=== PATIENT | female | born 1975 | race African-American/Black ===

== ENCOUNTER 2016-08-21 02:35 | Outpatient (CLI) | payer MEDICAID, OTHER ==
[2016-08-21 02:55] VITALS: BP 131/76
[2016-08-21] MEDS ORDERED: LACTATED RINGERS 1,000 ML IV SCH (04:00)
[2016-08-21 04:49] LABS: Bilirubin,Urine NEG (Negative); Blood,Urine NEG (Negative); Ketones,Urine TR mg/dL (Negative); Leukocyte Esterase,Urine NEG (Negative); Mucus,Urine FEW /HPF; Nitrite,Urine NEG (Negative); Protein,Urine <15 mg/dL mg/dL (Negative); Urobilinogen,Urine < 2.0 mg/dL (<2.0)
--- NOTE | 2016-08-21 10:59 | Ultrasound Report ---
ULTRASOUND OB LIMITED History: Vaginal bleeding Technique: Transabdominal ultrasound with Doppler interrogation. Gestation: Single Placenta: Anterior Placental Grade: 2 No evidence for placental abruption or previa. Heart Rate: 141 BPM
--- NOTE | 2016-08-21 11:00 | Ultrasound Report ---
ULTRASOUND BIOPHYSICAL PROFILE: History: Vaginal bleeding Technique: Transabdominal ultrasound with Doppler interrogation. 2 - breathing movements 2 - movements 2 - posture and tone 2 - Qualitative amniotic fluid volume 8 - TOTAL SCORE OF POSSIBLE 8 Heart Rate (bpm) 135
== END 2016-08-21 05:50 | disposition home or self-care (01) ==
LOC: TRG 02:35
PROVIDERS: ATTEND Obstetrics & Gynecology
DX: O09.523 Supervision of elderly multigravida, third trimester (principal); O47.1 False labor at or after 37 completed weeks of gestation; Z3A.37 37 weeks gestation of pregnancy
CPT/HCPCS: 76815; 76819; 81001; 82962; 96360; J7120

== ENCOUNTER 2016-08-22 17:37 | Outpatient (CLI) | payer MEDICAID ==
[2016-08-22 19:14] VITALS: BP 118/69
--- NOTE | 2016-08-23 10:01 | Ultrasound Report ---
ULTRASOUND OB LIMITED History: well being, rupture of membranes, no movements Technique: Transabdominal ultrasound with Doppler interrogation. Gestation: Single Position: Cephalic Amniotic Fluid: Normal MARY = 9.5 cm Placenta: Anterior, right lateral Placental Grade: 1 Heart Rate: 145 BPM Cervical length: Not measured cm (Normal > 3 cm)
--- NOTE | 2016-08-23 10:01 | Ultrasound Report ---
ULTRASOUND BIOPHYSICAL PROFILE: History: well being, rupture of membranes, no movement Technique: Transabdominal ultrasound with Doppler interrogation. 2 - breathing movements 2 - movements 2 - posture and tone 2 - Qualitative amniotic fluid volume 8 - TOTAL SCORE OF POSSIBLE 8 Heart Rate (bpm) 145
== END 2016-08-22 19:22 | disposition home or self-care (01) ==
LOC: TRG 17:37
PROVIDERS: ATTEND Obstetrics & Gynecology
DX: O09.513 Supervision of elderly primigravida, third trimester (principal); O47.1 False labor at or after 37 completed weeks of gestation; Z3A.38 38 weeks gestation of pregnancy
CPT/HCPCS: 59025; 76815; 76819

== ENCOUNTER 2016-08-24 22:14 | Inpatient (IN) | payer MEDICAID ==
[2016-08-24] MEDS ORDERED: LACTATED RINGERS 1,000 ML ONE (22:33)
--- NOTE | 2016-08-24 23:02 | History and Physical Report ---
History of Present Illness Date of examination: 08/24/16 Chief complaint: Vaginal bleeding History of present illness: Pt is a 40yo AF EDC 09/05/16; EGA 38 3/7 weeks presents to L&D complaining of vaginal bleeding, and found to be 3/50/V/-3 She received care at [facility] since 7 weeks and course complicated by IDDM and AMA for which she has been followed by [facility]. records are avail able and GBS is positive. Past History Past Medical History: diabetes (IDDM on ) Past Surgical History: other (Liver biopsy; skin graft to right leg) Family/Genetic History: diabetes, hypertension Social history: no significant social history, - Obstetrical History Expected Date of Delivery: 09/05/16 Actual Gestation: 38 Week(s) 3 Day(s) : 1 Medications and Allergies Allergies Allergy/AdvReac Type Severity Reaction Status Date / Time No Known Allergies Allergy Unverified 01/21/16 09:19 Review of Systems All systems: negative - Vital Signs Vital signs: Vital Signs Pulse BP 109 H 135/94 08/24/16 22:39 08/24/16 22:39 Temp Pulse Resp BP Pulse Ox 109 H 135/94 08/24/16 22:39 08/24/16 22:39 - Physical Exam Breasts: Positive: deferred Cardiovascular: Regular rate Lungs: Positive: Clear to auscultation Abdomen: Positive: normal appearance, soft Genitourinary (Female): Positive: normal external genitalia Vagina: Positive: other (blood) Uterus: Positive: enlarged Extremities: Positive: normal - Obstetrical FHR: category 2 Uterine Contraction Monitor Mode: External Cervical Dilatation: 3 Cervical Effacement Percentage: 50 station: -3 Uterine Contraction Pattern: Irregular Uterine Tone Measurement Phase: Contraction Uterine Contraction Intensity: Strong/Firm Results Result Diagrams: 08/25/16 05:12 All other labs normal. Assessment and Plan - Patient Problems (1) 38 weeks gestation of Onset Date: 08/25/16 Current Visit: Yes Status: Acute Plan to address problem: A: IUP @ 38 3/7 weeks IDDM AMA Thrombocytopenia - HELLP syndrome not suspected at this time P: Admit to L&D for expectant vaginal delivery Monitor BS's and platelet count. Will repeat AST/ALT
[2016-08-24] MEDS ORDERED: BRETHINE SUB-Q PRN (23:04)
[2016-08-24] MEDS ORDERED: MINERAL OIL PO PRN (23:04)
[2016-08-24] MEDS ORDERED: ePHEDrine SULFATE IV PRN (23:04)
[2016-08-24] MEDS ORDERED: POLYCILLIN/NS 2 GM/100 ML 2 GM/100 ML BAG IV ONE (23:04)
[2016-08-24] MEDS ORDERED: BRETHINE IVP PRN (23:04)
[2016-08-24] MEDS ORDERED: NARCAN 0.4 MG/1 ML IV PRN (23:04)
[2016-08-24] MEDS ORDERED: SUBLIMAZE IV PRN (23:04)
[2016-08-24] MEDS ORDERED: XYLOCAINE 2% INFILTRATI ONE (23:04)
[2016-08-24] MEDS ORDERED: PHENERGAN PO PRN (23:04)
[2016-08-24] MEDS ORDERED: STADOL IV PRN (23:04)
[2016-08-24] MEDS ORDERED: ZOFRAN IV PRN (23:04)
[2016-08-24 23:34] LABS: Hematocrit 36.5 % (30.3-42.9); Hemoglobin 12.6 gm/dl (10.1-14.3); Mean Corpuscular HGB Conc 35 % (30-34); Mean Corpuscular Hemoglobin 35 pg (28-32); Mean Corpuscular Volume 102 fl (79-97); Red Blood Count 3.57 M/mm3 (3.65-5.03); Red Cell Distribution Width 13.5 % (13.2-15.2); White Blood Count 10.9 K/mm3 (4.5-11.0)
[2016-08-24 23:44] LABS: Platelet Count 70 K/mm3 (140-440)
[2016-08-24] MEDS ORDERED: PITOCin/NS 30 UNIT/500ML 30 UNITS/500 ML BAG IV SCH ×2 (23:45)
[2016-08-24] MEDS ORDERED: PITOCin/NS 20 UNIT/1000ML DRIP 20 UNITS/1,000 ML BAG IV SCH (23:45)
[2016-08-25] MEDS ORDERED: D10W 1,000 ML IV SCH (01:00)
[2016-08-25] MEDS: LACTATED RINGERS 1,000 ML IV SCH ×2 (01:02→10:21)
[2016-08-25 02:24] LABS: Uric Acid 5.9 mg/dL (3.5-7.6)
[2016-08-25] MEDS: POLYCILLIN/NS 1 GM/50 ML 1 GM/50 ML BAG IV SCH ×2 (04:40→09:07)
[2016-08-25 05:44] LABS: Hematocrit 37.2 % (30.3-42.9); Hemoglobin 12.6 gm/dl (10.1-14.3); Mean Corpuscular HGB Conc 34 % (30-34); Mean Corpuscular Hemoglobin 35 pg (28-32); Mean Corpuscular Volume 103 fl (79-97); Red Blood Count 3.63 M/mm3 (3.65-5.03); Red Cell Distribution Width 13.6 % (13.2-15.2); White Blood Count 12.6 K/mm3 (4.5-11.0)
[2016-08-25 06:20] LABS: Platelet Count 62 K/mm3 (140-440)
[2016-08-25 06:57] LABS: Bilirubin,Urine NEG (Negative); Blood,Urine NEG (Negative); Ketones,Urine NEG (Negative); Leukocyte Esterase,Urine NEG (Negative); Mucus,Urine FEW /HPF; Nitrite,Urine NEG (Negative); Protein,Urine <15 mg/dL mg/dL (Negative); Urobilinogen,Urine < 2.0 mg/dL (<2.0); WBC,Urine < 1.0 /HPF (0.0-6.0)
--- NOTE | 2016-08-25 07:21 | Progress Note ---
Assessment and Plan - Patient Problems (1) 38 weeks gestation of Onset Date: 08/25/16 Current Visit: Yes Status: Acute Plan to address problem: A: IUP @ 38 4/7 weeks IDDM AMA Thrombocytopenia P: Expectant vaginal delivery Subjective - Subjective Date of service: 08/25/16 Principal diagnosis: IUP @ Interval history: Pt having irregular contractions, but now C/C/V/0. AROM 2+ meconium fluid. Patient reports: loss of fluid, movement normal, contractions, no new complaints, no vaginal bleeding Objective - Vital Signs Vital Signs: Vital Signs - 12hr 08/24/16 08/24/16 08/24/16 22:39 23:07 23:09 Temperature 99.0 F Pulse Rate 109 H 107 H 107 H Pulse Rate [ From Monitor] Respiratory 18 Rate Blood Pressure 135/94 144/72 Blood Pressure [Right Arm] O2 Sat by Pulse 98 Oximetry 08/24/16 08/24/16 08/24/16 23:10 23:14 23:19 Temperature 97.4 F L Pulse Rate 107 H 108 H Pulse Rate [ 108 H From Monitor] Respiratory 18 Rate Blood Pressure Blood Pressure 144/72 [Right Arm] O2 Sat by Pulse 97 97 97 Oximetry 08/24/16 08/24/16 08/24/16 23:24 23:29 23:34 Temperature Pulse Rate 101 H 108 H 108 H Pulse Rate [ From Monitor] Respiratory Rate Blood Pressure Blood Pressure [Right Arm] O2 Sat by Pulse 98 99 99 Oximetry 08/24/16 08/24/16 08/24/16 23:38 23:39 23:44 Temperature Pulse Rate 103 H 103 H 102 H Pulse Rate [ From Monitor] Respiratory Rate Blood Pressure 134/71 Blood Pressure [Right Arm] O2 Sat by Pulse 98 98 Oximetry 08/24/16 08/24/16 08/24/16 23:49 23:54 23:59 Temperature Pulse Rate 111 H 105 H 107 H Pulse Rate [ From Monitor] Respiratory Rate Blood Pressure Blood Pressure [Right Arm] O2 Sat by Pulse 98 99 99 Oximetry 08/25/16 08/25/16 08/25/16 00:04 00:07 00:09 Temperature Pulse Rate 108 H 102 H 103 H Pulse Rate [ From Monitor] Respiratory Rate Blood Pressure 132/65 Blood Pressure [Right Arm] O2 Sat by Pulse 99 98 Oximetry 08/25/16 08/25/16 08/25/16 00:14 00:16 00:19 Temperature Pulse Rate 93 H 96 H Pulse Rate [ From Monitor] Respiratory 20 Rate Blood Pressure Blood Pressure [Right Arm] O2 Sat by Pulse 98 98 Oximetry 08/25/16 08/25/16 08/25/16 00:24 00:29 00:34 Temperature Pulse Rate 93 H 101 H 107 H Pulse Rate [ From Monitor] Respiratory Rate Blood Pressure Blood Pressure [Right Arm] O2 Sat by Pulse 98 98 96 Oximetry 08/25/16 08/25/16 08/25/16 00:38 00:39 00:44 Temperature Pulse Rate 94 H 93 H 95 H Pulse Rate [ From Monitor] Respiratory Rate Blood Pressure 136/68 Blood Pressure [Right Arm] O2 Sat by Pulse 99 99 Oximetry 08/25/16 08/25/16 08/25/16 00:49 00:54 00:59 Temperature Pulse Rate 103 H 94 H 94 H Pulse Rate [ From Monitor] Respiratory Rate Blood Pressure Blood Pressure [Right Arm] O2 Sat by Pulse 96 97 96 Oximetry 08/25/16 08/25/16 08/25/16 01:04 01:08 01:09 Temperature Pulse Rate 92 H 100 H 96 H Pulse Rate [ From Monitor] Respiratory Rate Blood Pressure 166/84 Blood Pressure [Right Arm] O2 Sat by Pulse 94 95 Oximetry 08/25/16 08/25/16 08/25/16 01:11 01:14 01:19 Temperature Pulse Rate 98 H 105 H 108 H Pulse Rate [ From Monitor] Respiratory Rate Blood Pressure Blood Pressure [Right Arm] O2 Sat by Pulse 94 95 94 Oximetry 08/25/16 08/25/16 08/25/16 01:24 01:29 01:34 Temperature Pulse Rate 103 H 109 H 101 H Pulse Rate [ From Monitor] Respiratory Rate Blood Pressure Blood Pressure [Right Arm] O2 Sat by Pulse 95 99 98 Oximetry 08/25/16 08/25/16 08/25/16 01:37 01:39 01:44 Temperature Pulse Rate 100 H 104 H 100 H Pulse Rate [ From Monitor] Respiratory Rate Blood Pressure 141/71 Blood Pressure [Right Arm] O2 Sat by Pulse 98 98 Oximetry 08/25/16 08/25/16 08/25/16 01:49 01:54 01:59 Temperature Pulse Rate 99 H 105 H 109 H Pulse Rate [ From Monitor] Respiratory Rate Blood Pressure Blood Pressure [Right Arm] O2 Sat by Pulse 98 98 98 Oximetry 08/25/16 08/25/16 08/25/16 02:04 02:07 02:09 Temperature Pulse Rate 99 H 97 H 109 H Pulse Rate [ From Monitor] Respiratory Rate Blood Pressure 133/70 Blood Pressure [Right Arm] O2 Sat by Pulse 98 99 Oximetry 08/25/16 08/25/16 08/25/16 02:14 02:19 02:24 Temperature Pulse Rate 105 H 104 H 99 H Pulse Rate [ From Monitor] Respiratory Rate Blood Pressure Blood Pressure [Right Arm] O2 Sat by Pulse 99 99 98 Oximetry 08/25/16 08/25/16 08/25/16 02:29 02:30 02:34 Temperature Pulse Rate 99 H 99 H Pulse Rate [ From Monitor] Respiratory 20 Rate Blood Pressure Blood Pressure [Right Arm] O2 Sat by Pulse 97 98 Oximetry 08/25/16 08/25/16 08/25/16 02:37 02:39 02:44 Temperature Pulse Rate 96 H 95 H 98 H Pulse Rate [ From Monitor] Respiratory Rate Blood Pressure 153/78 Blood Pressure [Right Arm] O2 Sat by Pulse 98 98 Oximetry 08/25/16 08/25/16 08/25/16 02:49 02:54 02:59 Temperature Pulse Rate 93 H 94 H 92 H Pulse Rate [ From Monitor] Respiratory Rate Blood Pressure Blood Pressure [Right Arm] O2 Sat by Pulse 98 97 98 Oximetry 08/25/16 08/25/16 08/25/16 03:04 03:08 03:09 Temperature Pulse Rate 93 H 100 H 93 H Pulse Rate [ From Monitor] Respiratory Rate Blood Pressure 141/70 Blood Pressure [Right Arm] O2 Sat by Pulse 97 97 Oximetry 08/25/16 08/25/16 08/25/16 03:14 03:19 03:24 Temperature Pulse Rate 100 H 99 H 94 H Pulse Rate [ From Monitor] Respiratory Rate Blood Pressure Blood Pressure [Right Arm] O2 Sat by Pulse 98 98 98 Oximetry 08/25/16 08/25/16 08/25/16 03:29 03:34 03:38 Temperature Pulse Rate 89 90 93 H Pulse Rate [ From Monitor] Respiratory Rate Blood Pressure 143/77 Blood Pressure [Right Arm] O2 Sat by Pulse 98 97 Oximetry 08/25/16 08/25/16 08/25/16 03:39 03:44 03:49 Temperature Pulse Rate 89 105 H 99 H Pulse Rate [ From Monitor] Respiratory Rate Blood Pressure Blood Pressure [Right Arm] O2 Sat by Pulse 98 99 98 Oximetry 08/25/16 08/25/16 08/25/16 03:54 03:59 04:04 Temperature Pulse Rate 106 H 101 H 101 H Pulse Rate [ From Monitor] Respiratory Rate Blood Pressure Blood Pressure [Right Arm] O2 Sat by Pulse 99 99 99 Oximetry 08/25/16 08/25/16 08/25/16 04:07 04:09 04:14 Temperature Pulse Rate 91 H 104 H 97 H Pulse Rate [ From Monitor] Respiratory Rate Blood Pressure 137/70 Blood Pressure [Right Arm] O2 Sat by Pulse 99 98 Oximetry 08/25/16 08/25/16 08/25/16 04:19 04:24 04:29 Temperature Pulse Rate 99 H 100 H 97 H Pulse Rate [ From Monitor] Respiratory Rate Blood Pressure Blood Pressure [Right Arm] O2 Sat by Pulse 99 98 99 Oximetry 08/25/16 08/25/16 08/25/16 04:34 04:38 04:39 Temperature Pulse Rate 94 H 99 H 97 H Pulse Rate [ From Monitor] Respiratory Rate Blood Pressure 140/98 Blood Pressure [Right Arm] O2 Sat by Pulse 98 100 Oximetry 08/25/16 08/25/16 08/25/16 04:44 04:49 04:54 Temperature Pulse Rate 91 H 95 H 96 H Pulse Rate [ From Monitor] Respiratory Rate Blood Pressure Blood Pressure [Right Arm] O2 Sat by Pulse 98 98 99 Oximetry 08/25/16 08/25/16 08/25/16 04:59 05:04 05:05 Temperature Pulse Rate 88 95 H 96 H Pulse Rate [ From Monitor] Respiratory Rate Blood Pressure Blood Pressure [Right Arm] O2 Sat by Pulse 98 98 94 Oximetry 08/25/16 08/25/16 08/25/16 05:09 05:14 05:19 Temperature Pulse Rate 95 H 104 H 102 H Pulse Rate [ From Monitor] Respiratory Rate Blood Pressure 132/65 Blood Pressure [Right Arm] O2 Sat by Pulse 94 94 95 Oximetry 08/25/16 08/25/16 08/25/16 05:20 05:24 05:25 Temperature Pulse Rate 97 H 101 H 103 H Pulse Rate [ From Monitor] Respiratory Rate Blood Pressure Blood Pressure [Right Arm] O2 Sat by Pulse 94 95 94 Oximetry 08/25/16 08/25/16 08/25/16 05:29 05:32 05:34 Temperature Pulse Rate 101 H 94 H 96 H Pulse Rate [ From Monitor] Respiratory Rate Blood Pressure Blood Pressure [Right Arm] O2 Sat by Pulse 96 94 94 Oximetry 08/25/16 08/25/16 08/25/16 05:37 05:39 05:40 Temperature Pulse Rate 96 H 97 H 98 H Pulse Rate [ From Monitor] Respiratory Rate Blood Pressure 141/65 Blood Pressure [Right Arm] O2 Sat by Pulse 95 94 Oximetry 08/25/16 08/25/16 08/25/16 05:44 05:49 05:54 Temperature Pulse Rate 95 H 108 H 102 H Pulse Rate [ From Monitor] Respiratory Rate Blood Pressure Blood Pressure [Right Arm] O2 Sat by Pulse 96 94 94 Oximetry 08/25/16 08/25/16 08/25/16 05:59 06:04 06:06 Temperature Pulse Rate 109 H 106 H 99 H Pulse Rate [ From Monitor] Respiratory Rate Blood Pressure Blood Pressure [Right Arm] O2 Sat by Pulse 95 96 94 Oximetry 08/25/16 08/25/16 08/25/16 06:07 06:09 06:12 Temperature Pulse Rate 100 H 102 H 104 H Pulse Rate [ From Monitor] Respiratory Rate Blood Pressure 127/60 Blood Pressure [Right Arm] O2 Sat by Pulse 95 94 Oximetry 08/25/16 08/25/16 08/25/16 06:14 06:19 06:24 Temperature Pulse Rate 99 H 114 H 98 H Pulse Rate [ From Monitor] Respiratory Rate Blood Pressure Blood Pressure [Right Arm] O2 Sat by Pulse 98 97 97 Oximetry 08/25/16 08/25/16 08/25/16 06:29 06:33 06:34 Temperature Pulse Rate 105 H 114 H 107 H Pulse Rate [ From Monitor] Respiratory Rate Blood Pressure Blood Pressure [Right Arm] O2 Sat by Pulse 96 94 95 Oximetry 08/25/16 08/25/16 08/25/16 06:37 06:39 06:44 Temperature Pulse Rate 104 H 100 H 104 H Pulse Rate [ From Monitor] Respiratory Rate Blood Pressure 144/65 Blood Pressure [Right Arm] O2 Sat by Pulse 93 99 Oximetry 08/25/16 08/25/16 08/25/16 06:49 06:51 06:54 Temperature Pulse Rate 100 H 118 H 112 H Pulse Rate [ From Monitor] Respiratory Rate Blood Pressure Blood Pressure [Right Arm] O2 Sat by Pulse 95 94 97 Oximetry 08/25/16 08/25/16 08/25/16 06:59 07:04 07:08 Temperature Pulse Rate 115 H 100 H 109 H Pulse Rate [ From Monitor] Respiratory Rate Blood Pressure 169/79 Blood Pressure [Right Arm] O2 Sat by Pulse 97 97 Oximetry 08/25/16 08/25/16 07:09 07:14 Temperature Pulse Rate 110 H 107 H Pulse Rate [ From Monitor] Respiratory Rate Blood Pressure Blood Pressure [Right Arm] O2 Sat by Pulse 97 98 Oximetry - Exam Cardiovascular: Regular rate Abdomen: Present: normal appearance, soft Uterus: Present: normal FHR: category 1 Uterine Contraction Monitor Mode: External Cervical Dilatation: 10 Cervical Effacement Percentage: 100 station: 0 Uterine Contraction Pattern: Irregular Uterine Tone Measurement Phase: Contraction Uterine Contraction Intensity: Moderate - Labs Labs: Abnormal Labs 08/24/16 08/24/16 08/25/16 22:50 22:50 00:22 WBC RBC 3.57 L MCV 102 H MCH 35 H MCHC 35 H Plt Count 70 L POC Glucose < 40 L Lactate Dehydrogenase 230 H 08/25/16 08/25/16 08/25/16 00:54 04:54 05:12 WBC 12.6 H RBC 3.63 L MCV 103 H MCH 35 H MCHC Plt Count 62 L POC Glucose 129 H 56 L Lactate Dehydrogenase Laboratory Results - last 24 hr 08/24/16 08/24/16 08/24/16 22:25 22:50 22:50 WBC 10.9 RBC 3.57 L Hgb 12.6 Hct 36.5 MCV 102 H MCH 35 H MCHC 35 H RDW 13.5 Plt Count 70 L POC Glucose Uric Acid 5.9 AST 25 ALT 26 Lactate Dehydrogenase 230 H Urine Bilirubin Urine RBC (Auto) Blood Type O POSITIVE Antibody Screen Negative 08/25/16 08/25/16 08/25/16 00:22 00:54 04:54 WBC RBC Hgb Hct MCV MCH MCHC RDW Plt Count POC Glucose < 40 L 129 H 56 L Uric Acid AST ALT Lactate Dehydrogenase Urine Bilirubin Urine RBC (Auto) Blood Type Antibody Screen 08/25/16 08/25/16 05:12 05:12 WBC 12.6 H RBC 3.63 L Hgb 12.6 Hct 37.2 MCV 103 H MCH 35 H MCHC 34 RDW 13.6 Plt Count 62 L POC Glucose Uric Acid AST ALT Lactate Dehydrogenase Urine Bilirubin Neg Urine RBC (Auto) 1.0 Blood Type Antibody Screen
[2016-08-25 08:45] LABS: Alanine Aminotransferase 24 units/L (7-56)
--- NOTE | 2016-08-25 09:24 | Progress Note ---
Assessment and Plan A: Active labor Category 2 with early decelerations and occasional lates. Overall variability is moderate. Low platelets 62,000 IDDM GBS negative P: Routine care Continuous monitoring Monitor Blood sugar q1 hr in labor Subjective - Subjective Date of service: 08/25/16 Principal diagnosis: IUP @ 38.4 Active labor Interval history: Received patient with SVE /-1 pushing with RN. Report included that pt is IDDM and currently has a platelet count of 62,000. Pt aslo has heavy mec s/ p AROM. Pt has been active pushing for 1 hr. RN reports nearing maternal exhaustion but without epidural pt continues to push at will. Patient reports: loss of fluid, movement normal, contractions, no new complaints, no vaginal bleeding Objective - Vital Signs Vital Signs: Vital Signs - 12hr 08/24/16 08/24/16 08/24/16 22:39 23:07 23:09 Temperature 99.0 F Pulse Rate 109 H 107 H 107 H Pulse Rate [ From Monitor] Respiratory 18 Rate Blood Pressure 135/94 144/72 Blood Pressure [Right Arm] O2 Sat by Pulse 98 Oximetry 08/24/16 08/24/16 08/24/16 23:10 23:14 23:19 Temperature 97.4 F L Pulse Rate 107 H 108 H Pulse Rate [ 108 H From Monitor] Respiratory 18 Rate Blood Pressure Blood Pressure 144/72 [Right Arm] O2 Sat by Pulse 97 97 97 Oximetry 08/24/16 08/24/16 08/24/16 23:24 23:29 23:34 Temperature Pulse Rate 101 H 108 H 108 H Pulse Rate [ From Monitor] Respiratory Rate Blood Pressure Blood Pressure [Right Arm] O2 Sat by Pulse 98 99 99 Oximetry 08/24/16 08/24/16 08/24/16 23:38 23:39 23:44 Temperature Pulse Rate 103 H 103 H 102 H Pulse Rate [ From Monitor] Respiratory Rate Blood Pressure 134/71 Blood Pressure [Right Arm] O2 Sat by Pulse 98 98 Oximetry 08/24/16 08/24/16 08/24/16 23:49 23:54 23:59 Temperature Pulse Rate 111 H 105 H 107 H Pulse Rate [ From Monitor] Respiratory Rate Blood Pressure Blood Pressure [Right Arm] O2 Sat by Pulse 98 99 99 Oximetry 08/25/16 08/25/16 08/25/16 00:04 00:07 00:09 Temperature Pulse Rate 108 H 102 H 103 H Pulse Rate [ From Monitor] Respiratory Rate Blood Pressure 132/65 Blood Pressure [Right Arm] O2 Sat by Pulse 99 98 Oximetry 08/25/16 08/25/16 08/25/16 00:14 00:16 00:19 Temperature Pulse Rate 93 H 96 H Pulse Rate [ From Monitor] Respiratory 20 Rate Blood Pressure Blood Pressure [Right Arm] O2 Sat by Pulse 98 98 Oximetry 08/25/16 08/25/16 08/25/16 00:24 00:29 00:34 Temperature Pulse Rate 93 H 101 H 107 H Pulse Rate [ From Monitor] Respiratory Rate Blood Pressure Blood Pressure [Right Arm] O2 Sat by Pulse 98 98 96 Oximetry 08/25/16 08/25/16 08/25/16 00:38 00:39 00:44 Temperature Pulse Rate 94 H 93 H 95 H Pulse Rate [ From Monitor] Respiratory Rate Blood Pressure 136/68 Blood Pressure [Right Arm] O2 Sat by Pulse 99 99 Oximetry 08/25/16 08/25/16 08/25/16 00:49 00:54 00:59 Temperature Pulse Rate 103 H 94 H 94 H Pulse Rate [ From Monitor] Respiratory Rate Blood Pressure Blood Pressure [Right Arm] O2 Sat by Pulse 96 97 96 Oximetry 08/25/16 08/25/16 08/25/16 01:04 01:08 01:09 Temperature Pulse Rate 92 H 100 H 96 H Pulse Rate [ From Monitor] Respiratory Rate Blood Pressure 166/84 Blood Pressure [Right Arm] O2 Sat by Pulse 94 95 Oximetry 08/25/16 08/25/16 08/25/16 01:11 01:14 01:19 Temperature Pulse Rate 98 H 105 H 108 H Pulse Rate [ From Monitor] Respiratory Rate Blood Pressure Blood Pressure [Right Arm] O2 Sat by Pulse 94 95 94 Oximetry 08/25/16 08/25/16 08/25/16 01:24 01:29 01:34 Temperature Pulse Rate 103 H 109 H 101 H Pulse Rate [ From Monitor] Respiratory Rate Blood Pressure Blood Pressure [Right Arm] O2 Sat by Pulse 95 99 98 Oximetry 08/25/16 08/25/16 08/25/16 01:37 01:39 01:44 Temperature Pulse Rate 100 H 104 H 100 H Pulse Rate [ From Monitor] Respiratory Rate Blood Pressure 141/71 Blood Pressure [Right Arm] O2 Sat by Pulse 98 98 Oximetry 08/25/16 08/25/16 08/25/16 01:49 01:54 01:59 Temperature Pulse Rate 99 H 105 H 109 H Pulse Rate [ From Monitor] Respiratory Rate Blood Pressure Blood Pressure [Right Arm] O2 Sat by Pulse 98 98 98 Oximetry 08/25/16 08/25/16 08/25/16 02:04 02:07 02:09 Temperature Pulse Rate 99 H 97 H 109 H Pulse Rate [ From Monitor] Respiratory Rate Blood Pressure 133/70 Blood Pressure [Right Arm] O2 Sat by Pulse 98 99 Oximetry 08/25/16 08/25/16 08/25/16 02:14 02:19 02:24 Temperature Pulse Rate 105 H 104 H 99 H Pulse Rate [ From Monitor] Respiratory Rate Blood Pressure Blood Pressure [Right Arm] O2 Sat by Pulse 99 99 98 Oximetry 08/25/16 08/25/16 08/25/16 02:29 02:30 02:34 Temperature Pulse Rate 99 H 99 H Pulse Rate [ From Monitor] Respiratory 20 Rate Blood Pressure Blood Pressure [Right Arm] O2 Sat by Pulse 97 98 Oximetry 08/25/16 08/25/16 08/25/16 02:37 02:39 02:44 Temperature Pulse Rate 96 H 95 H 98 H Pulse Rate [ From Monitor] Respiratory Rate Blood Pressure 153/78 Blood Pressure [Right Arm] O2 Sat by Pulse 98 98 Oximetry 08/25/16 08/25/16 08/25/16 02:49 02:54 02:59 Temperature Pulse Rate 93 H 94 H 92 H Pulse Rate [ From Monitor] Respiratory Rate Blood Pressure Blood Pressure [Right Arm] O2 Sat by Pulse 98 97 98 Oximetry 08/25/16 08/25/16 08/25/16 03:04 03:08 03:09 Temperature Pulse Rate 93 H 100 H 93 H Pulse Rate [ From Monitor] Respiratory Rate Blood Pressure 141/70 Blood Pressure [Right Arm] O2 Sat by Pulse 97 97 Oximetry 08/25/16 08/25/16 08/25/16 03:14 03:19 03:24 Temperature Pulse Rate 100 H 99 H 94 H Pulse Rate [ From Monitor] Respiratory Rate Blood Pressure Blood Pressure [Right Arm] O2 Sat by Pulse 98 98 98 Oximetry 08/25/16 08/25/16 08/25/16 03:29 03:34 03:38 Temperature Pulse Rate 89 90 93 H Pulse Rate [ From Monitor] Respiratory Rate Blood Pressure 143/77 Blood Pressure [Right Arm] O2 Sat by Pulse 98 97 Oximetry 08/25/16 08/25/16 08/25/16 03:39 03:44 03:49 Temperature Pulse Rate 89 105 H 99 H Pulse Rate [ From Monitor] Respiratory Rate Blood Pressure Blood Pressure [Right Arm] O2 Sat by Pulse 98 99 98 Oximetry 08/25/16 08/25/16 08/25/16 03:54 03:59 04:04 Temperature Pulse Rate 106 H 101 H 101 H Pulse Rate [ From Monitor] Respiratory Rate Blood Pressure Blood Pressure [Right Arm] O2 Sat by Pulse 99 99 99 Oximetry 08/25/16 08/25/16 08/25/16 04:07 04:09 04:14 Temperature Pulse Rate 91 H 104 H 97 H Pulse Rate [ From Monitor] Respiratory Rate Blood Pressure 137/70 Blood Pressure [Right Arm] O2 Sat by Pulse 99 98 Oximetry 08/25/16 08/25/16 08/25/16 04:19 04:24 04:29 Temperature Pulse Rate 99 H 100 H 97 H Pulse Rate [ From Monitor] Respiratory Rate Blood Pressure Blood Pressure [Right Arm] O2 Sat by Pulse 99 98 99 Oximetry 08/25/16 08/25/16 08/25/16 04:34 04:38 04:39 Temperature Pulse Rate 94 H 99 H 97 H Pulse Rate [ From Monitor] Respiratory Rate Blood Pressure 140/98 Blood Pressure [Right Arm] O2 Sat by Pulse 98 100 Oximetry 08/25/16 08/25/16 08/25/16 04:44 04:49 04:54 Temperature Pulse Rate 91 H 95 H 96 H Pulse Rate [ From Monitor] Respiratory Rate Blood Pressure Blood Pressure [Right Arm] O2 Sat by Pulse 98 98 99 Oximetry 08/25/16 08/25/16 08/25/16 04:59 05:04 05:05 Temperature Pulse Rate 88 95 H 96 H Pulse Rate [ From Monitor] Respiratory Rate Blood Pressure Blood Pressure [Right Arm] O2 Sat by Pulse 98 98 94 Oximetry 08/25/16 08/25/16 08/25/16 05:09 05:14 05:19 Temperature Pulse Rate 95 H 104 H 102 H Pulse Rate [ From Monitor] Respiratory Rate Blood Pressure 132/65 Blood Pressure [Right Arm] O2 Sat by Pulse 94 94 95 Oximetry 08/25/16 08/25/16 08/25/16 05:20 05:24 05:25 Temperature Pulse Rate 97 H 101 H 103 H Pulse Rate [ From Monitor] Respiratory Rate Blood Pressure Blood Pressure [Right Arm] O2 Sat by Pulse 94 95 94 Oximetry 08/25/16 08/25/16 08/25/16 05:29 05:32 05:34 Temperature Pulse Rate 101 H 94 H 96 H Pulse Rate [ From Monitor] Respiratory Rate Blood Pressure Blood Pressure [Right Arm] O2 Sat by Pulse 96 94 94 Oximetry 08/25/16 08/25/16 08/25/16 05:37 05:39 05:40 Temperature Pulse Rate 96 H 97 H 98 H Pulse Rate [ From Monitor] Respiratory Rate Blood Pressure 141/65 Blood Pressure [Right Arm] O2 Sat by Pulse 95 94 Oximetry 08/25/16 08/25/16 08/25/16 05:44 05:49 05:54 Temperature Pulse Rate 95 H 108 H 102 H Pulse Rate [ From Monitor] Respiratory Rate Blood Pressure Blood Pressure [Right Arm] O2 Sat by Pulse 96 94 94 Oximetry 08/25/16 08/25/16 08/25/16 05:59 06:04 06:06 Temperature Pulse Rate 109 H 106 H 99 H Pulse Rate [ From Monitor] Respiratory Rate Blood Pressure Blood Pressure [Right Arm] O2 Sat by Pulse 95 96 94 Oximetry 08/25/16 08/25/16 08/25/16 06:07 06:09 06:12 Temperature Pulse Rate 100 H 102 H 104 H Pulse Rate [ From Monitor] Respiratory Rate Blood Pressure 127/60 Blood Pressure [Right Arm] O2 Sat by Pulse 95 94 Oximetry 08/25/16 08/25/16 08/25/16 06:14 06:19 06:24 Temperature Pulse Rate 99 H 114 H 98 H Pulse Rate [ From Monitor] Respiratory Rate Blood Pressure Blood Pressure [Right Arm] O2 Sat by Pulse 98 97 97 Oximetry 08/25/16 08/25/16 08/25/16 06:29 06:33 06:34 Temperature Pulse Rate 105 H 114 H 107 H Pulse Rate [ From Monitor] Respiratory Rate Blood Pressure Blood Pressure [Right Arm] O2 Sat by Pulse 96 94 95 Oximetry 08/25/16 08/25/16 08/25/16 06:37 06:39 06:44 Temperature Pulse Rate 104 H 100 H 104 H Pulse Rate [ From Monitor] Respiratory Rate Blood Pressure 144/65 Blood Pressure [Right Arm] O2 Sat by Pulse 93 99 Oximetry 08/25/16 08/25/16 08/25/16 06:49 06:51 06:54 Temperature Pulse Rate 100 H 118 H 112 H Pulse Rate [ From Monitor] Respiratory Rate Blood Pressure Blood Pressure [Right Arm] O2 Sat by Pulse 95 94 97 Oximetry 08/25/16 08/25/16 08/25/16 06:59 07:04 07:08 Temperature Pulse Rate 115 H 100 H 109 H Pulse Rate [ From Monitor] Respiratory Rate Blood Pressure 169/79 Blood Pressure [Right Arm] O2 Sat by Pulse 97 97 Oximetry 08/25/16 08/25/16 08/25/16 07:09 07:14 07:19 Temperature Pulse Rate 110 H 107 H 95 H Pulse Rate [ From Monitor] Respiratory Rate Blood Pressure Blood Pressure [Right Arm] O2 Sat by Pulse 97 98 96 Oximetry 08/25/16 08/25/16 08/25/16 07:24 07:29 07:34 Temperature Pulse Rate 105 H 117 H 121 H Pulse Rate [ From Monitor] Respiratory Rate Blood Pressure Blood Pressure [Right Arm] O2 Sat by Pulse 97 98 97 Oximetry 08/25/16 08/25/16 08/25/16 07:37 07:39 07:44 Temperature Pulse Rate 104 H 109 H 127 H Pulse Rate [ From Monitor] Respiratory Rate Blood Pressure 137/75 Blood Pressure [Right Arm] O2 Sat by Pulse 97 98 Oximetry 08/25/16 08/25/16 08/25/16 07:49 07:54 07:59 Temperature Pulse Rate 115 H 114 H 105 H Pulse Rate [ From Monitor] Respiratory Rate Blood Pressure Blood Pressure [Right Arm] O2 Sat by Pulse 97 98 97 Oximetry 08/25/16 08/25/16 08/25/16 08:01 08:04 08:08 Temperature 96.9 F L Pulse Rate 103 H 105 H 105 H Pulse Rate [ 103 H From Monitor] Respiratory 20 Rate Blood Pressure 129/71 127/67 Blood Pressure 129/71 [Right Arm] O2 Sat by Pulse 97 Oximetry 08/25/16 08/25/16 08/25/16 08:09 08:14 08:19 Temperature Pulse Rate 110 H 119 H 107 H Pulse Rate [ From Monitor] Respiratory Rate Blood Pressure Blood Pressure [Right Arm] O2 Sat by Pulse 98 98 98 Oximetry 08/25/16 08/25/16 08/25/16 08:24 08:29 08:34 Temperature Pulse Rate 104 H 102 H 115 H Pulse Rate [ From Monitor] Respiratory Rate Blood Pressure Blood Pressure [Right Arm] O2 Sat by Pulse 98 98 98 Oximetry 08/25/16 08/25/16 08/25/16 08:37 08:39 08:44 Temperature Pulse Rate 103 H 120 H 105 H Pulse Rate [ From Monitor] Respiratory Rate Blood Pressure 121/79 Blood Pressure [Right Arm] O2 Sat by Pulse 98 98 Oximetry 08/25/16 08/25/16 08/25/16 08:49 08:54 08:59 Temperature Pulse Rate 103 H 121 H 114 H Pulse Rate [ From Monitor] Respiratory Rate Blood Pressure Blood Pressure [Right Arm] O2 Sat by Pulse 98 98 98 Oximetry 08/25/16 08/25/16 08/25/16 09:04 09:08 09:09 Temperature Pulse Rate 97 H 98 H 120 H Pulse Rate [ From Monitor] Respiratory Rate Blood Pressure 129/73 Blood Pressure [Right Arm] O2 Sat by Pulse 98 95 Oximetry 08/25/16 08/25/16 09:14 09:19 Temperature Pulse Rate 100 H 101 H Pulse Rate [ From Monitor] Respiratory Rate Blood Pressure Blood Pressure [Right Arm] O2 Sat by Pulse 98 98 Oximetry - Exam Cardiovascular: Regular rate Lungs: Normal air movement FHR: category 2 Uterine Contraction Monitor Mode: External Cervical Dilatation: 10 (0900) Cervical Effacement Percentage: 100 station: 0.5 - Labs Labs: Abnormal Labs 08/24/16 08/24/16 08/25/16 22:50 22:50 00:22 WBC RBC 3.57 L MCV 102 H MCH 35 H MCHC 35 H Plt Count 70 L POC Glucose < 40 L Lactate Dehydrogenase 230 H 08/25/16 08/25/16 08/25/16 00:54 04:54 05:12 WBC 12.6 H RBC 3.63 L MCV 103 H MCH 35 H MCHC Plt Count 62 L POC Glucose 129 H 56 L Lactate Dehydrogenase Laboratory Results - last 24 hr 08/24/16 08/24/16 08/24/16 22:25 22:50 22:50 WBC 10.9 RBC 3.57 L Hgb 12.6 Hct 36.5 MCV 102 H MCH 35 H MCHC 35 H RDW 13.5 Plt Count 70 L POC Glucose Uric Acid 5.9 AST 25 ALT 26 Lactate Dehydrogenase 230 H Urine Color Urine Turbidity Urine pH Ur Specific [place] Urine Protein Urine Glucose (UA) Urine Ketones Urine Blood Urine Nitrite Urine Bilirubin Urine Urobilinogen Ur Leukocyte Esterase Urine WBC (Auto) Urine RBC (Auto) Urine Mucus Blood Type O POSITIVE Antibody Screen Negative 08/25/16 08/25/16 08/25/16 00:22 00:54 04:54 WBC RBC Hgb Hct MCV MCH MCHC RDW Plt Count POC Glucose < 40 L 129 H 56 L Uric Acid AST ALT Lactate Dehydrogenase Urine Color Urine Turbidity Urine pH Ur Specific [place] Urine Protein Urine Glucose (UA) Urine Ketones Urine Blood Urine Nitrite Urine Bilirubin Urine Urobilinogen Ur Leukocyte Esterase Urine WBC (Auto) Urine RBC (Auto) Urine Mucus Blood Type Antibody Screen 08/25/16 08/25/16 08/25/16 05:12 05:12 08:05 WBC 12.6 H RBC 3.63 L Hgb 12.6 Hct 37.2 MCV 103 H MCH 35 H MCHC 34 RDW 13.6 Plt Count 62 L POC Glucose Uric Acid AST 26 ALT 24 Lactate Dehydrogenase Urine Color Straw Urine Turbidity Clear Urine pH 6.0 Ur Specific [place] 1.014 Urine Protein <15 mg/dl Urine Glucose (UA) 50 Urine Ketones Neg Urine Blood Neg Urine Nitrite Neg Urine Bilirubin Neg Urine Urobilinogen < 2.0 Ur Leukocyte Esterase Neg Urine WBC (Auto) < 1.0 Urine RBC (Auto) 1.0 Urine Mucus Few Blood Type Antibody Screen
--- NOTE | 2016-08-25 10:38 | Anesthesia Day of Surgery ---
Anesthesia Day of Surgery - Day of Surgery Patient Examined: Yes Patient H&P Reviewed: Yes Patient is NPO: Yes
--- NOTE | 2016-08-25 10:38 | Anesthesia Consultation ---
Anesthesia Consult and Med Hx Date of service: 08/25/16 - Airway Anesthetic Teeth Evaluation: Good ROM Head & Neck: Adequate Mental/Hyoid Distance: Adequate Mallampati Class: Class II Intubation Access Assessment: Probably Good - Pulmonary Exam CTA: Yes - Cardiac Exam Cardiac Exam: RRR - Pre-Operative Health Status ASA Pre-Surgery Classification: ASA3 Proposed Anesthetic Plan: General - Pulmonary Hx Asthma: No COPD: No Hx Pneumonia: No - Cardiovascular System Hx Hypertension: No - Central Nervous System Hx Seizures: No Hx Psychiatric Problems: No - Endocrine Hx Renal Disease: No Hx End Stage Renal Disease: No Hx Insulin Dependent Diabetes: Yes (IDDM) Hx Hypothyroidism: No Hx Hyperthyroidism: No - Hematic Hx Anemia: No Hx Sickle Cell Disease: No - Other Systems Hx Alcohol Use: No - Additional Comments Anesthesia Medical History Comments: thrombocytopenia, failure of descent, plan GETA for
[2016-08-25] MEDS ORDERED: REGLAN IV ONE (10:39)
[2016-08-25] MEDS ORDERED: BICITRA PO ONE (10:39)
[2016-08-25] MEDS ORDERED: PEPCID IV ONE (10:39)
--- NOTE | 2016-08-25 10:50 | Event Note ---
Date: 08/25/16 Pt pushed x 2.5 hrs without progressing past /0-+1 station. Pt is exhausted. Dr. Klein consulted and agrees that patient will likely not deliver vaginally. Care turned over to Dr. Klein for C/S delivery.
[2016-08-25] MEDS ORDERED: PITOCin/NS 20 UNIT/1000ML DRIP 20 UNITS/1,000 ML BAG IV SCH ×2 (11:00→13:00)
[2016-08-25] MEDS ORDERED: ANCEF/STERILE WATER 2 GM/20 ML 2 GM/20 ML SYRINGE IV NR (11:00)
[2016-08-25] MEDS ORDERED: LACTATED RINGERS 1,000 ML IV SCH (11:00)
[2016-08-25] MEDS ORDERED: MORPHINE PCA 30MG/30ML IV SCH ×2 (11:00→13:00)
[2016-08-25] MEDS ORDERED: DIPRIVAN 10 MG/ML IV ONE (11:10)
[2016-08-25] MEDS ORDERED: DILAUDID ONE (11:10)
[2016-08-25] MEDS ORDERED: XYLOCAINE MPF 2% ONE (11:18)
[2016-08-25] MEDS ORDERED: QUELICIN ONE (11:18)
[2016-08-25] MEDS ORDERED: NACL 0.9% IR ONE (11:30)
[2016-08-25] MEDS ORDERED: WATER FOR IRRIG STERILE IR ONE (11:30)
[2016-08-25] MEDS ORDERED: PROAIR IH ONE (11:40)
[2016-08-25] MEDS ORDERED: ZOFRAN ONE (11:56)
[2016-08-25 11:58] LABS: ISTAT Base Excess -1; ISTAT DEVICE 0; ISTAT HCO3 26.9; ISTAT PCO2 69.8 (35-45); ISTAT PH 7.193 (7.35-7.45); ISTAT PO2 13 (80-105); ISTAT SO2 10; ISTAT TCO2 29
[2016-08-25] MEDS ORDERED: FLUARIX QUAD 2016-2017(36 MOS+) IM ONE (12:00)
--- NOTE | 2016-08-25 12:12 | Operative Report ---
Operative Report Operative Report: Date of procedure: 08/25/2016 Pre-operative diagnosis: 1. Intrauterine at 38-3/7 weeks in labor 2. Failure to progress 3. Failure to descend 4. Meconium fluid 5. Insulin-dependent diabetes mellitus 6. Thrombocytopenia Post-operative diagnosis: Same Procedure name(s): Primary low transverse section Surgeon: Jhonny Klein MD [employer] Technician: None Anesthesia: General endotracheal intubation by Dr. Jo EBL: 700 mL's Findings: A 2910 g male infant Apgars 3 at 1 minute 8 at 5 minutes. Cord gas obtained - results are pending. 2+ meconium fluid. Normal uterus. Normal tubes and ovaries bilaterally. Prominent sacral promontory. Procedure: After the patient was prepped and draped in usual sterile fashion, and after satisfactory level of epidural anesthesia was obtained, the skin knife was used to make a transverse skin incision. The incision was excised down to layer of the fascia, which was nicked in the midline and extended laterally using the Bovie cautery. The rectus muscles were dissected off the rectus fascia both superiorly and inferiorly. The rectus bellies in the midline, and the peritoneum was entered under direct visualization. The peritoneal incision was extended superiorly and inferiorly. A bladder flap was created and the bladder blade was then placed. The uterus was scored in a curvilinear linear fashion, entered in the midline revealing meconium amniotic fluid. The 's head was delivered onto the surgical field, and the oropharynx and nasopharynx were bulb suctioned. The rest of the 's body was delivered, cord was doubly clamped and cut and the infant was handed to the waiting respiratory team. Cord gas and blood was then obtained. The placenta was manually removed from the uterus, and the uterus removed from its normal anatomical position. After gentle uterine lavage, the incision was inspected and found to be without extensions. It was then closed in 2 layers using 0 Vicryl suture in a running interlocking fashion, the second layer imbricating the first. After good hemostasis was achieved, copious amounts or irrigation was performed, and the gutters were suctioned free of blood and blood clots. Tisseel sealant was sprayed across the uterine incision. The uterus was then returned to its normal anatomical position, and after excellent hemostasis assured, the peritoneum was reapproximated using 3-0 Vicryl suture in a running interlocking fashion, and then the rectus muscles were reapproximated using 3-0 Vicryl suture in a [id number] configuration. The fascia was then reapproximated using 0 Vicryl suture in running interlocking fashion. The subcutaneous layer was made hemostatic using Bovie cautery, the Tisseel sealant was sprayed across the fascial incision and the skin edges reapproximated using 4-0 Vicryl suture in a subcuticular fashion. Patient tolerated the procedure well was transported to recovery in stable condition.
[2016-08-25] MEDS ORDERED: BENADRYL IV PRN (12:13)
[2016-08-25] MEDS ORDERED: REGLAN IV PRN (12:13)
[2016-08-25] MEDS ORDERED: NARCAN 0.4 MG/1 ML IV PRN ×2 (12:13→12:18)
[2016-08-25] MEDS ORDERED: TUCKS PAD TP PRN (12:18)
[2016-08-25] MEDS ORDERED: MOTRIN PO PRN (12:18)
[2016-08-25] MEDS ORDERED: LANSINOH TP PRN (12:18)
[2016-08-25] MEDS ORDERED: TORADOL IV PRN (12:18)
[2016-08-25] MEDS ORDERED: PHENERGAN PR PRN (12:18)
[2016-08-25] MEDS ORDERED: PERCOCET 5/325 PO PRN (12:18)
[2016-08-25] MEDS ORDERED: TYLENOL PO PRN (12:18)
[2016-08-25] MEDS ORDERED: DILAUDID IV PRN (12:30)
[2016-08-25] MEDS ORDERED: SODIUM CHLORIDE FLUSH SYRINGE 10 ML IV NR (13:00)
[2016-08-25] MEDS ORDERED: NACL 0.9% 1000 ML 1,000 ML IV SCH (13:00)
[2016-08-25] MEDS ORDERED: ANCEF/NS 1 GM/50 ML 1 GM/50 ML BAG IV SCH (13:00)
--- NOTE | 2016-08-25 15:59 | Post Anesthesia Evaluation ---
- Post Anesthesia Evaluation Patient Participated: Yes Airway Patent: Yes Stable Respiratory Function: Yes Nausea/Vomiting: No Temp > 96.8F: Yes Pain Manageable: Yes Adequeate Hydration: Yes Anesthesia Complications: No Block Receding Appropriately: Not Applicable Patient on Ventilator: No
[2016-08-25] MEDS ORDERED: D50W (25GM) IV PRN (17:05)
[2016-08-25] MEDS: ANCEF/NS 1 GM/50 ML 1 GM/50 ML BAG IV SCH (19:53)
[2016-08-25] MEDS ORDERED: NOVOLOG SUB-Q SCH (22:00)
[2016-08-25] MEDS: D5LR 1,000 ML IV SCH (23:24)
[2016-08-26 02:13] LABS: Hematocrit 26.1 % (30.3-42.9); Hemoglobin 8.8 gm/dl (10.1-14.3); Mean Corpuscular HGB Conc 34 % (30-34); Mean Corpuscular Hemoglobin 35 pg (28-32); Mean Corpuscular Volume 103 fl (79-97); Red Blood Count 2.55 M/mm3 (3.65-5.03); Red Cell Distribution Width 13.5 % (13.2-15.2); White Blood Count 12.6 K/mm3 (4.5-11.0)
[2016-08-26 02:22] LABS: Platelet Count 71 K/mm3 (140-440)
[2016-08-26] MEDS: ANCEF/NS 1 GM/50 ML 1 GM/50 ML BAG IV SCH (03:43)
[2016-08-26] MEDS: D5LR 1,000 ML IV SCH (08:39)
[2016-08-26] MEDS ORDERED: PRENATAL VITAMIN PO SCH (10:00)
[2016-08-26] MEDS ORDERED: M-M-R II VACCINE SUB-Q ONE (12:20)
[2016-08-26] MEDS ORDERED: BOOSTRIX IM ONE (12:20)
--- NOTE | 2016-08-26 12:24 | Progress Note ---
Assessment and Plan - Patient Problems (1) 38 weeks gestation of Onset Date: 08/25/16 Current Visit: Yes Status: Acute (2) Status post primary low transverse section Onset Date: 08/26/16 Current Visit: Yes Status: Acute Plan to address problem: A: S/P LTCS - POD #1 Doing well IDDM - stable on sliding scale Asymptomatic anemia - stable Thrombocytopenia - stable and improving. P: Continue RPOC Continue BS management Repeat CBC tomorrow (3) Diabetes mellitus, insulin dependent (IDDM), controlled Onset Date: 08/26/16 Current Visit: Yes Status: Acute (4) Acute blood loss anemia Onset Date: 08/26/16 Current Visit: Yes Status: Acute (5) Thrombocytopenia Onset Date: 08/26/16 Current Visit: Yes Status: Acute Subjective - Subjective Date of service: 08/26/16 Principal diagnosis: s/p LTCS - POD #1 Interval history: Pt is feeling well without complaints. Tolerating a liquid diet without nausea or vomiting. No flatus yet. Patient reports: appetite normal, voiding normally, pain well controlled [place]: doing well Objective - Vital Signs Latest vital signs: Vital Signs Temp Pulse Pulse Pulse Resp BP BP 08/26/16 08:29 98.5 F 102 H 18 124/65 08/26/16 05:46 18 08/26/16 05:00 98.7 F 97 H 20 115/64 08/26/16 03:44 20 08/26/16 02:15 18 08/26/16 00:15 16 08/25/16 23:43 98.7 F 96 H 20 103/60 08/25/16 22:16 20 08/25/16 20:40 98.6 F 105 H 20 116/60 08/25/16 20:02 18 08/25/16 18:00 18 08/25/16 16:33 98.8 F 102 H 18 118/66 08/25/16 16:00 18 08/25/16 15:00 18 08/25/16 14:30 98.9 F 103 H 18 130/66 08/25/16 13:40 98 H 20 107/53 08/25/16 13:36 106 H 11 L 107/53 08/25/16 13:30 94 H 15 107/53 08/25/16 13:26 102 H 14 116/55 08/25/16 13:20 102 H 17 116/55 08/25/16 13:15 89 15 116/55 08/25/16 13:10 101 H 14 132/71 08/25/16 13:06 97 H 17 132/71 08/25/16 13:00 96 H 13 132/71 08/25/16 12:56 93 H 17 125/56 08/25/16 12:50 88 15 125/56 08/25/16 12:45 87 19 125/56 08/25/16 12:40 94 H 18 124/64 08/25/16 12:35 91 H 14 121/65 08/25/16 12:30 88 17 105/60 08/25/16 12:25 82 19 105/60 Pulse Ox 08/26/16 08:29 08/26/16 05:46 08/26/16 05:00 08/26/16 03:44 08/26/16 02:15 08/26/16 00:15 08/25/16 23:43 08/25/16 22:16 08/25/16 20:40 08/25/16 20:02 08/25/16 18:00 08/25/16 16:33 88 08/25/16 16:00 08/25/16 15:00 08/25/16 14:30 08/25/16 13:40 98 08/25/16 13:36 99 08/25/16 13:30 98 08/25/16 13:26 99 08/25/16 13:20 98 08/25/16 13:15 97 08/25/16 13:10 98 08/25/16 13:06 97 08/25/16 13:00 98 08/25/16 12:56 98 08/25/16 12:50 98 08/25/16 12:45 97 08/25/16 12:40 99 08/25/16 12:35 98 08/25/16 12:30 99 08/25/16 12:25 100 Intake and Output 08/25/16 08/26/16 08/26/16 22:59 06:59 14:59 Intake Total 640 846 0905 Output Total 350 1400 Balance 0 -1250 1360 Intake: IV 50 1000 ANCEF/NS 1 GM/50 ML 1 gm 50 In 50 ml @ 100 mls/hr IV Q8H ADDI Rx#:[id number] D5lr 1,000 ml @ 125 mls/ 1000 hr IV DIRECT ADDI Rx#: [id number] Oral 300 360 Intake, Free Water 150 Output: Urine 350 1400 Indwelling Catheter 350 1400 Other: Total, Intake Amount 240 360 Total, Output Amount 350 1400 # Voids Void 1 - Exam Breasts: Present: deferred Cardiovascular: Present: Regular rate Lungs: Present: Clear to auscultation Abdomen: Present: normal appearance, soft Uterus: Present: normal, firm, fundal height below umbilicus Extremities: Present: normal Incision: Present: normal, dry, intact, dressed Comments: Blood sugars 100-189 - Labs Labs: Abnormal lab results 08/25/16 08/25/16 08/26/16 Range/Units 12:58 16:24 01:17 WBC 12.6 H (4.5-11.0) K/mm3 RBC 2.55 L (3.65-5.03) M/mm3 Hgb 8.8 L D (10.1-14.3) gm/dl Hct 26.1 L D (30.3-42.9) % MCV 103 H (79-97) fl MCH 35 H (28-32) pg Plt Count 71 L (140-440) K/mm3 POC Glucose 189 H 185 H (70-105) 08/26/16 08/26/16 Range/Units 08:15 11:44 WBC (4.5-11.0) K/mm3 RBC (3.65-5.03) M/mm3 Hgb (10.1-14.3) gm/dl Hct (30.3-42.9) % MCV (79-97) fl MCH (28-32) pg Plt Count (140-440) K/mm3 POC Glucose 198 H 107 H (70-105) Laboratory Tests 08/24/16 08/24/16 08/24/16 22:25 22:50 22:50 WBC 10.9 RBC 3.57 L Hgb 12.6 Hct 36.5 MCV 102 H MCH 35 H MCHC 35 H RDW 13.5 Plt Count 70 L POC ABG pH POC ABG pCO2 POC ABG pO2 POC ABG HCO3 POC ABG Total CO2 POC ABG O2 Sat POC ABG Base Excess FiO2 POC Glucose Uric Acid 5.9 AST 25 ALT 26 Lactate Dehydrogenase 230 H Urine Color Urine Turbidity Urine pH Ur Specific [place] Urine Protein Urine Glucose (UA) Urine Ketones Urine Blood Urine Nitrite Urine Bilirubin Urine Urobilinogen Ur Leukocyte Esterase Urine WBC (Auto) Urine RBC (Auto) Urine Mucus Blood Type O POSITIVE Antibody Screen Negative 08/25/16 08/25/16 08/25/16 00:22 00:54 04:54 WBC RBC Hgb Hct MCV MCH MCHC RDW Plt Count POC ABG pH POC ABG pCO2 POC ABG pO2 POC ABG HCO3 POC ABG Total CO2 POC ABG O2 Sat POC ABG Base Excess FiO2 POC Glucose < 40 L 129 H 56 L Uric Acid AST ALT Lactate Dehydrogenase Urine Color Urine Turbidity Urine pH Ur Specific [place] Urine Protein Urine Glucose (UA) Urine Ketones Urine Blood Urine Nitrite Urine Bilirubin Urine Urobilinogen Ur Leukocyte Esterase Urine WBC (Auto) Urine RBC (Auto) Urine Mucus Blood Type Antibody Screen 08/25/16 08/25/16 08/25/16 05:12 05:12 08:05 WBC 12.6 H RBC 3.63 L Hgb 12.6 Hct 37.2 MCV 103 H MCH 35 H MCHC 34 RDW 13.6 Plt Count 62 L POC ABG pH POC ABG pCO2 POC ABG pO2 POC ABG HCO3 POC ABG Total CO2 POC ABG O2 Sat POC ABG Base Excess FiO2 POC Glucose Uric Acid AST 26 ALT 24 Lactate Dehydrogenase Urine Color Straw Urine Turbidity Clear Urine pH 6.0 Ur Specific [place] 1.014 Urine Protein <15 mg/dl Urine Glucose (UA) 50 Urine Ketones Neg Urine Blood Neg Urine Nitrite Neg Urine Bilirubin Neg Urine Urobilinogen < 2.0 Ur Leukocyte Esterase Neg Urine WBC (Auto) < 1.0 Urine RBC (Auto) 1.0 Urine Mucus Few Blood Type Antibody Screen 08/25/16 08/25/16 08/25/16 08:43 11:52 12:58 WBC RBC Hgb Hct MCV MCH MCHC RDW Plt Count POC ABG pH 7.193 L POC ABG pCO2 69.8 H POC ABG pO2 13 L POC ABG HCO3 26.9 POC ABG Total CO2 29 POC ABG O2 Sat 10 POC ABG Base Excess -1 FiO2 21 POC Glucose 94 189 H Uric Acid AST ALT Lactate Dehydrogenase Urine Color Urine Turbidity Urine pH Ur Specific [place] Urine Protein Urine Glucose (UA) Urine Ketones Urine Blood Urine Nitrite Urine Bilirubin Urine Urobilinogen Ur Leukocyte Esterase Urine WBC (Auto) Urine RBC (Auto) Urine Mucus Blood Type Antibody Screen 08/25/16 08/25/16 08/26/16 16:24 22:05 01:17 WBC 12.6 H RBC 2.55 L Hgb 8.8 L D Hct 26.1 L D MCV 103 H MCH 35 H MCHC 34 RDW 13.5 Plt Count 71 L POC ABG pH POC ABG pCO2 POC ABG pO2 POC ABG HCO3 POC ABG Total CO2 POC ABG O2 Sat POC ABG Base Excess FiO2 POC Glucose 185 H 100 Uric Acid AST ALT Lactate Dehydrogenase Urine Color Urine Turbidity Urine pH Ur Specific [place] Urine Protein Urine Glucose (UA) Urine Ketones Urine Blood Urine Nitrite Urine Bilirubin Urine Urobilinogen Ur Leukocyte Esterase Urine WBC (Auto) Urine RBC (Auto) Urine Mucus Blood Type Antibody Screen 08/26/16 08/26/16 08:15 11:44 WBC RBC Hgb Hct MCV MCH MCHC RDW Plt Count POC ABG pH POC ABG pCO2 POC ABG pO2 POC ABG HCO3 POC ABG Total CO2 POC ABG O2 Sat POC ABG Base Excess FiO2 POC Glucose 198 H 107 H Uric Acid AST ALT Lactate Dehydrogenase Urine Color Urine Turbidity Urine pH Ur Specific [place] Urine Protein Urine Glucose (UA) Urine Ketones Urine Blood Urine Nitrite Urine Bilirubin Urine Urobilinogen Ur Leukocyte Esterase Urine WBC (Auto) Urine RBC (Auto) Urine Mucus Blood Type Antibody Screen
--- NOTE | 2016-08-26 15:31 | Progress Note ---
Subjective Date of service: 08/26/16 Principal diagnosis: s/p LTCS - POD #1 Interval history: 1st POD after Patient is in the bed, comfortable. Pain is well controlled with pain meds. Ambulated well. No residual neurological deficit. No anesthesia complications Objective - Constitutional Vitals: Vital Signs - 12hr 08/26/16 08/26/16 08/26/16 03:44 05:00 05:46 Temperature 98.7 F Pulse Rate [ 97 H From Monitor] Respiratory 20 20 18 Rate Blood Pressure 115/64 [Right Arm] 08/26/16 08:29 Temperature 98.5 F Pulse Rate [ 102 H From Monitor] Respiratory 18 Rate Blood Pressure 124/65 [Right Arm] - Labs CBC & Chem 7: 08/26/16 01:17 Labs: Abnormal lab results 08/25/16 08/25/16 08/26/16 Range/Units 12:58 16:24 01:17 WBC 12.6 H (4.5-11.0) K/mm3 RBC 2.55 L (3.65-5.03) M/mm3 Hgb 8.8 L D (10.1-14.3) gm/dl Hct 26.1 L D (30.3-42.9) % MCV 103 H (79-97) fl MCH 35 H (28-32) pg Plt Count 71 L (140-440) K/mm3 POC Glucose 189 H 185 H (70-105) 08/26/16 08/26/16 Range/Units 08:15 11:44 WBC (4.5-11.0) K/mm3 RBC (3.65-5.03) M/mm3 Hgb (10.1-14.3) gm/dl Hct (30.3-42.9) % MCV (79-97) fl MCH (28-32) pg Plt Count (140-440) K/mm3 POC Glucose 198 H 107 H (70-105)
[2016-08-26] MEDS: FEOSOL PO SCH (16:38)
[2016-08-26] MEDS: NORCO 5/325 PO PRN (16:38)
[2016-08-27] MEDS: NORCO 5/325 PO PRN ×4 (05:06→22:28)
[2016-08-27] MEDS ORDERED: BOOSTRIX IM ONE (06:00)
[2016-08-27 09:12] LABS: Hematocrit 27.2 % (30.3-42.9); Hemoglobin 9.1 gm/dl (10.1-14.3); Mean Corpuscular HGB Conc 33 % (30-34); Mean Corpuscular Hemoglobin 35 pg (28-32); Mean Corpuscular Volume 104 fl (79-97); Red Blood Count 2.61 M/mm3 (3.65-5.03); White Blood Count 11.4 K/mm3 (4.5-11.0)
[2016-08-27 09:27] LABS: Platelet Count 79 K/mm3 (140-440)
--- NOTE | 2016-08-27 10:00 | Progress Note ---
Assessment and Plan - Patient Problems (1) 38 weeks gestation of Onset Date: 08/25/16 Current Visit: Yes Status: Acute (2) Status post primary low transverse section Onset Date: 08/26/16 Current Visit: Yes Status: Acute Plan to address problem: A: S/P LTCS - POD #2 Doing well IDDM - stable on sliding scale Asymptomatic anemia - stable Thrombocytopenia - stable and improving. P: Continue RPOC Probable discharge home tomorrow (3) Diabetes mellitus, insulin dependent (IDDM), controlled Onset Date: 08/26/16 Current Visit: Yes Status: Acute (4) Acute blood loss anemia Onset Date: 08/26/16 Current Visit: Yes Status: Acute (5) Thrombocytopenia Onset Date: 08/26/16 Current Visit: Yes Status: Acute Subjective - Subjective Date of service: 08/27/16 Principal diagnosis: s/p LTCS - POD #2 Interval history: Pt is feeling well without complaints. Tolerating a reg diet without nausea or vomiting. + Flatus. Patient reports: appetite normal, voiding normally, pain well controlled, flatus , ambulating normally [place]: doing well Objective - Vital Signs Latest vital signs: Vital Signs Temp Pulse Resp BP 08/27/16 05:06 20 08/26/16 23:50 98.4 F 83 18 103/64 08/26/16 16:53 98.3 F 91 H 18 116/72 Intake and Output 08/26/16 08/27/16 08/27/16 22:59 06:59 14:59 Intake Total 480 Balance 480 Intake: IV 0 D5lr 1,000 ml @ 125 mls/ 0 hr IV DIRECT ADDI Rx#: [id number] Oral 240 Intake, Free Water 240 Other: Total, Intake Amount 240 # Voids Void 1 - Exam Breasts: Present: deferred Cardiovascular: Present: Regular rate Lungs: Present: Clear to auscultation Abdomen: Present: normal appearance, soft Uterus: Present: normal, firm, fundal height below umbilicus Extremities: Present: normal Incision: Present: normal, dry, intact - Labs Labs: Abnormal lab results 08/26/16 08/26/16 08/27/16 Range/Units 08:15 11:44 08:14 WBC (4.5-11.0) K/mm3 RBC (3.65-5.03) M/mm3 Hgb (10.1-14.3) gm/dl Hct (30.3-42.9) % MCV (79-97) fl MCH (28-32) pg Plt Count (140-440) K/mm3 POC Glucose 198 H 107 H 111 H (70-105) / Range/Units 08:16 WBC 11.4 H (4.5-11.0) K/mm3 RBC 2.61 L (3.65-5.03) M/mm3 Hgb 9.1 L (10.1-14.3) gm/dl Hct 27.2 L (30.3-42.9) % MCV 104 H (79-97) fl MCH 35 H (28-32) pg Plt Count 79 L (140-440) K/mm3 POC Glucose (70-105)
[2016-08-27] MEDS: FEOSOL PO SCH (12:44)
--- NOTE | 2016-08-28 10:27 | Progress Note ---
Assessment and Plan - Patient Problems (1) 38 weeks gestation of Onset Date: 08/25/16 Current Visit: Yes Status: Resolved (2) Status post primary low transverse section Onset Date: 08/26/16 Current Visit: Yes Status: Resolved Plan to address problem: A: S/P LTCS - POD #3 Doing well IDDM - stable on sliding scale Asymptomatic anemia - stable Thrombocytopenia - stable and improving. P: Discharge to home today. (3) Diabetes mellitus, insulin dependent (IDDM), controlled Onset Date: 08/26/16 Current Visit: Yes Status: Chronic (4) Acute blood loss anemia Onset Date: 08/26/16 Current Visit: Yes Status: Acute (5) Thrombocytopenia Onset Date: 08/26/16 Current Visit: Yes Status: Resolved Subjective - Subjective Date of service: 08/28/16 Principal diagnosis: s/p LTCS - POD #3 Interval history: Pt is feeling well without complaints. Tolerating a reg diet without nausea or vomiting. + Flatus. Ambulating and voiding without difficulty. Patient reports: appetite normal, voiding normally, pain well controlled, flatus , ambulating normally : doing well, bottle feeding Objective - Vital Signs Latest vital signs: Vital Signs Temp Pulse Pulse Resp BP BP 08/28/16 07:14 98.0 F 70 18 114/70 08/28/16 01:08 98.3 F 83 16 111/65 08/27/16 16:00 97.9 F 80 20 116/78 Intake and Output 08/27/16 08/28/16 08/28/16 22:59 06:59 14:59 Intake Total 740 180 Balance 740 180 Intake: Oral 480 Intake, Free Water 260 180 Other: Total, Intake Amount 480 # Voids Void 1 1 - Exam Cardiovascular: Present: Regular rate Lungs: Present: Clear to auscultation Abdomen: Present: normal appearance, soft Uterus: Present: normal, firm, fundal height below umbilicus Extremities: Present: normal Incision: Present: normal, dry, intact - Labs Labs: Abnormal lab results 08/27/16 08/27/16 08/27/16 Range/Units 12:33 16:56 22:25 POC Glucose 204 H 167 H 61 L (70-105) 08/28/16 08/28/16 Range/Units 00:22 08:24 POC Glucose 106 H 111 H (70-105)
--- NOTE | 2016-08-28 10:28 | Discharge Summary ---
Providers - Providers Date of Admission: 08/24/16 22:58 Date of discharge: 08/28/16 Attending physician: SHWETHA KAHN MD Primary care physician: SHWETHA KAHN MD Hospitalization Reason for admission: active labor, vaginal bleeding, IUP at term Delivery: Procedure: primary low transverse Episiotomy: none Incision: normal, dry, intact Other procedures: none complications: none Discharge diagnosis: IUP at term delivered baby: male Hospital course: Pt is a 40yo AF EDC 09/05/16; EGA 38 3/7 weeks who presented to L&D complaining of vaginal bleeding, and found to be 3/50/V/-3. She progressed in labor until she was 10/100/V/-1 and was delivered by C Section due to failure to descend. Post operative course was uneventful, including a minimal need for insulin except when her BS was 200, and by POD #3 she was tolerating a 2200cal ADA diet without nausea or vomiting, ambulating and voiding without difficulty, and thus discharged to home in stable condition. She will follow up with her [facility] next week for Insulin adjustments. Condition at discharge: Good Disposition: DISCHARGED TO HOME OR SELFCARE - Discharge Diagnoses (1) 38 weeks gestation of Status: Resolved (2) Status post primary low transverse section Status: Resolved (3) Diabetes mellitus, insulin dependent (IDDM), controlled Status: Chronic (4) Acute blood loss anemia Status: Acute (5) Thrombocytopenia Status: Resolved Plan - Discharge Medications Prescriptions: Ferrous Sulfate [Feosol 325 MG tab] 325 mg PO BID #60 tablet HYDROcodone/APAP 5-325 [[place] 5/325] 1 each PO Q6HR PRN #30 tablet PRN Reason: Pain Ibuprofen [Motrin] 800 mg PO Q8HR PRN #30 tablet PRN Reason: Moder Pain Unrelieved By [place] Vit W-Ca,Fe,FA(<1 mg) [ Vitamins] 1 each PO DAILY #30 tablet - Provider Discharge Summary Activity: routine, no sex for 6 weeks, no heavy lifting 4 weeks, no strenuous exercise Diet: routine Instructions: routine Additional instructions: [] Smoking cessation referral if applicable(refer to patient education folder for contact #) [] Refer to [facility] Booklet Call your doctor immediately for: * Fever > 100.5 * Heavy vaginal bleeding ( >1 pad per hour) * Severe persistent headache * Shortness of breath * Reddened, hot, painful area to leg or breast * Drainage or odor from incision. * Keep incision clean and dry at all times and follow doctor's instructions regarding bathing/showering Follow up with [facility] in 1 week for Insulin adjustments - Follow up plan Follow up: SHWETHA CASON MD [Primary Care Provider] - 7 Days
[2016-08-28 18:07] VITALS: BP 120/64
== END 2016-08-28 18:00 | disposition home or self-care (01) | DRG 765 ==
LOC: TRG 22:14 → LD 22:58 → TRG 22:58 → OB 08-25 14:35
PROVIDERS: ADMIT Obstetrics & Gynecology; ATTEND Obstetrics & Gynecology
PROC: 10D00Z1 Extraction of Products of Conception, Low, Open Approach (ICD-10-PCS; principal; 2016-08-25)
DX: O67.9 Intrapartum hemorrhage, unspecified (principal); O24.02 Pre-existing type 1 diabetes mellitus, in childbirth; O99.12 Other diseases of the blood and blood-forming organs and certain disorders involving the immune mechanism complicating childbirth; D69.6 Thrombocytopenia, unspecified; E10.9 Type 1 diabetes mellitus without complications; O76 Abnormality in fetal heart rate and rhythm complicating labor and delivery; O32.4XX0 Maternal care for high head at term, not applicable or unspecified; O77.0 Labor and delivery complicated by meconium in amniotic fluid; Z3A.38 38 weeks gestation of pregnancy; Z37.0 Single live birth; Z83.3 Family history of diabetes mellitus; Z82.49 Family history of ischemic heart disease and other diseases of the circulatory system
CPT/HCPCS: 36415; 81001; 82803; 82962; 83615; 84450; 84460; 84550; 85027; 86850; 86900; 86901; 88307; 90471; 90686; 90715; C9250; J0290; J0330; J0595; J0690; J1170; J1815; J1885; J2405; J2590; J2704; J2765; J3010; J7120; J7121

== ENCOUNTER 2018-06-15 12:24 | Inpatient (IN) | payer MEDICAID, OTHER ==
[2018-06-15] MEDS ORDERED: NACL 0.9% 1000 ML 1,000 ML IV ONE ×2 (12:30→15:40)
[2018-06-15] MEDS ORDERED: GEODON IM ONE (12:30)
--- NOTE | 2018-06-15 12:34 | Emergency Department Report ---
ED Altered Mental Status HPI - General Stated Complaint: AMS Time Seen by Provider: 06/15/18 12:30 Source: EMS Mode of arrival: Stretcher Limitations: Language Barrier, Altered Mental Status - History of Present Illness Initial Comments: Patient is a 42-year-old female that presents emergency room with complaints of altered mental status. She was brought in by EMS. Patient also does not speak Micron[place]. Patient has no family at bedside. EMS states that the family is in route. EMS report received. EMS states that the blood sugar in route was 76. Patient is a insulin-dependent diabetic. Patient has a fruity smell. MD Complaint: altered mental status, confusion, decreased responsiveness -: Sudden Severity: severe Consistency of Symptoms: getting worse Context: diabetes - Related Data Previous Rx's Medication Instructions Recorded Last Taken Type Ferrous Sulfate [Feosol 325 MG tab] 325 mg PO BID #60 tablet 08/25/16 Unknown Rx HYDROcodone/APAP 5-325 [[place] 1 each PO Q6HR PRN #30 tablet 08/25/16 Unknown Rx 5/325] Ibuprofen [Motrin] 800 mg PO Q8HR PRN #30 tablet 08/25/16 Unknown Rx Vit Calc,Iron,Folic 1 each PO DAILY #30 tablet 08/25/16 Unknown Rx [ Vitamins] Allergies Allergy/AdvReac Type Severity Reaction Status Date / Time No Known Allergies Allergy Unverified 01/21/16 09:19 ED Review of Systems ROS: Stated complaint: AMS Other details as noted in HPI Comment: Unobtainable due to pts medical conditions ED Past Medical Hx - Past Medical History Previous Medical History?: Yes Hx Hypertension: No Hx Congestive Heart Failure: No Hx Diabetes: Yes (x 20 years,insulin and diet controlled) Hx Deep Vein Thrombosis: No Hx Renal Disease: No Hx Sickle Cell Disease: No Hx Seizures: No Hx Asthma: No Hx COPD: No Hx HIV: No - Surgical History Additional Surgical History: right leg - Social History Smoking Status: Never Smoker - Medications Home Medications: Home Medications Medication Instructions Recorded Confirmed Last Taken Type Ferrous Sulfate [Feosol 325 MG tab] 325 mg PO BID #60 tablet 08/25/16 Unknown Rx HYDROcodone/APAP 5-325 [[place] 1 each PO Q6HR PRN #30 tablet 08/25/16 Unknown Rx 5/325] Ibuprofen [Motrin] 800 mg PO Q8HR PRN #30 tablet 08/25/16 Unknown Rx Vit Calc,Iron,Folic 1 each PO DAILY #30 tablet 08/25/16 Unknown Rx [ Vitamins] ED Physical Exam - General General appearance: alert, in no apparent distress, anxious, other (patient agitated) - Head Head exam: Present: atraumatic, normocephalic - Eye Eye exam: Present: normal appearance, PERRL Pupils: Present: normal accommodation - ENT ENT exam: Present: mucous membranes dry - Neck Neck exam: Present: normal inspection - Respiratory Respiratory exam: Present: normal lung sounds bilaterally. Absent: respiratory distress - Cardiovascular Cardiovascular Exam: Present: regular rate, normal rhythm. Absent: systolic murmur, diastolic murmur, rubs, gallop - GI/Abdominal GI/Abdominal exam: Present: soft, normal bowel sounds - Extremities Exam Extremities exam: Present: normal inspection - Back Exam Back exam: Present: normal inspection - Neurological Exam Neurological exam: Present: alert, altered - Skin Skin exam: Present: warm, dry, intact, normal color. Absent: rash - Assessment Assessment Interval: Baseline - Level of Consciousness 1a. Level of Consciousness: alert/keenly responsive - LOC Questions 1b. LOC Questions: answers both correctly - LOC Command 1c. LOC Commands: performs tasks correctly - Best Gaze 2. Best Gaze: normal - Visual 3. Visual: no visual loss - Facial Palsy 4. Facial Palsy: normal symmetrical movement - Motor Arm 5b. Motor Arm Right: no drift 5a. Motor Arm Left: no drift - Motor Leg 6b. Motor Leg Right: no drift 6a. Motor Leg Left: no drift - Limb Ataxia 7. Limb Ataxia: absent - Sensory 8. Sensory: normal - Best Language 9. Best Language: no aphasia - Dysarthria 10. Dysarthria: normal - Extinction and Inattention 11. Extinction/Inattention: no abnormality - Scoring Total Score: 0 Stroke Severity: No Stroke Symptoms ED Course Vital Signs 06/15/18 06/15/18 06/15/18 12:30 12:45 13:10 Temperature 98.2 F Pulse Rate 113 H Respiratory 16 18 Rate Blood Pressure 140/82 O2 Sat by Pulse 100 100 99 Oximetry 06/15/18 06/15/18 06/15/18 13:15 13:30 13:45 Temperature Pulse Rate 116 H 139 H 111 H Respiratory 12 11 L 17 Rate Blood Pressure 142/84 169/97 100/63 O2 Sat by Pulse 99 100 98 Oximetry 06/15/18 06/15/18 06/15/18 14:00 14:15 14:30 Temperature Pulse Rate 112 H 104 H 98 H Respiratory 16 15 14 Rate Blood Pressure 120/73 125/75 142/79 O2 Sat by Pulse 97 98 99 Oximetry 06/15/18 06/15/18 06/15/18 15:04 15:15 15:31 Temperature Pulse Rate 108 H 94 H 100 H Respiratory 10 L 10 L 13 Rate Blood Pressure O2 Sat by Pulse Oximetry 06/15/18 06/15/18 06/15/18 15:45 16:00 16:15 Temperature Pulse Rate 89 111 H 96 H Respiratory 12 10 L 11 L Rate Blood Pressure 112/85 157/89 129/83 O2 Sat by Pulse 100 100 100 Oximetry 06/15/18 06/15/18 06/15/18 16:30 16:45 17:00 Temperature Pulse Rate 85 110 H 79 Respiratory 12 12 13 Rate Blood Pressure 126/76 123/84 106/66 O2 Sat by Pulse 100 100 100 Oximetry 06/15/18 06/15/18 06/15/18 17:15 17:30 17:45 Temperature Pulse Rate 82 70 81 Respiratory 14 13 12 Rate Blood Pressure 99/69 103/59 121/72 O2 Sat by Pulse 100 100 100 Oximetry 06/15/18 18:00 Temperature Pulse Rate 98 H Respiratory 11 L Rate Blood Pressure 130/78 O2 Sat by Pulse 100 Oximetry - Reevaluation(s) Reevaluation #1: Initial evaluation done a medially upon arrival. EMS brought patient in. Patient is altered and also having a language barrier. Patient will be given Geodon for acute agitation. 06/15/18 12:23 Patient resting. Patient to be admitted to the hospitalist service. No family has been seen yet 06/15/18 15:38 Family bedside. Discussed history and plan of care with family. Translation line used. Family states the patient is acutely agitated today due to fluctuating sugars. Patient's family agrees with admission to the hospitalist service. 06/15/18 16:24 - Consultations Consultation #1: Hospitalist consult for admission. Hospitalist to admit patient and assume care of patient. Bridge orders placed 06/15/18 15:38 - Lab Data Result diagrams: 06/15/18 13:07 06/15/18 13:07 Lab Results 06/15/18 06/15/18 06/15/18 Range/Units 13:07 13:07 13:07 WBC 6.1 (4.5-11.0) K/mm3 RBC 3.88 (3.65-5.03) M/mm3 Hgb 13.4 (10.1-14.3) gm/dl Hct 39.8 (30.3-42.9) % MCV 103 H (79-97) fl MCH 34 H (28-32) pg MCHC 34 (30-34) % RDW 14.7 (13.2-15.2) % Plt Count 154 (140-440) K/mm3 Lymph % (Auto) 30.9 (13.4-35.0) % [place] % (Auto) 4.2 (0.0-7.3) % Eos % (Auto) 0.0 (0.0-4.3) % Baso % (Auto) 0.3 (0.0-1.8) % Lymph # 1.9 (1.2-5.4) K/mm3 [place] # 0.3 (0.0-0.8) K/mm3 Eos # 0.0 (0.0-0.4) K/mm3 Baso # 0.0 (0.0-0.1) K/mm3 Seg Neutrophils % 64.6 (40.0-70.0) % Seg Neutrophils # 3.9 (1.8-7.7) K/mm3 VBG pH (7.320-7.420) Sodium 139 (137-145) mmol/L Potassium 3.7 (3.6-5.0) mmol/L Chloride 106.3 (98-107) mmol/L Carbon Dioxide 19 L (22-30) mmol/L Anion Gap 17 mmol/L BUN 18 H (7-17) mg/dL Creatinine 0.3 L (0.7-1.2) mg/dL Estimated GFR > 60 ml/min BUN/Creatinine Ratio 60 % Glucose 99 (65-100) mg/dL POC Glucose (70-105) Lactic Acid 3.40 H* (0.7-2.0) mmol/L Calcium 8.0 L (8.4-10.2) mg/dL Total Bilirubin 0.70 (0.1-1.2) mg/dL AST 100 H (5-40) units/L ALT 96 H (7-56) units/L Alkaline Phosphatase 148 H (35-129) units/L Total Creatine Kinase 170 H (30-135) units/L Troponin T < 0.010 (0.00-0.029) ng/mL Total Protein 6.2 L (6.3-8.2) g/dL Albumin 3.2 L (3.9-5) g/dL Albumin/Globulin Ratio 1.1 % TSH (0.270-4.200) mlU/mL HCG, Qual (Negative) Urine Color (Yellow) Urine Turbidity (Clear) Urine pH (5.0-7.0) Ur Specific [place] (1.003-1.030) Urine Protein (Negative) mg/dL Urine Glucose (UA) (Negative) mg/dL Urine Ketones (Negative) mg/dL Urine Blood (Negative) Urine Nitrite (Negative) Urine Bilirubin (Negative) Urine Urobilinogen (<2.0) mg/dL Ur Leukocyte Esterase (Negative) Urine WBC (Auto) (0.0-6.0) /HPF Urine RBC (Auto) (0.0-6.0) /HPF U Epithel Cells (Auto) (0-13.0) /HPF Urine Bacteria (Auto) (Negative) /HPF Urine Mucus /HPF Salicylates (2.8-20.0) mg/dL Urine Opiates Screen Urine Methadone Screen Acetaminophen (10.0-30.0) ug/mL Ur Barbiturates Screen Ur Phencyclidine Scrn Ur Amphetamines Screen U Benzodiazepines Scrn Urine Cocaine Screen U Marijuana (THC) Screen Drugs of Abuse Note Plasma/Serum Alcohol (0-0.07) % 06/15/18 06/15/18 06/15/18 Range/Units 13:07 13:07 13:07 WBC (4.5-11.0) K/mm3 RBC (3.65-5.03) M/mm3 Hgb (10.1-14.3) gm/dl Hct (30.3-42.9) % MCV (79-97) fl MCH (28-32) pg MCHC (30-34) % RDW (13.2-15.2) % Plt Count (140-440) K/mm3 Lymph % (Auto) (13.4-35.0) % [place] % (Auto) (0.0-7.3) % Eos % (Auto) (0.0-4.3) % Baso % (Auto) (0.0-1.8) % Lymph # (1.2-5.4) K/mm3 [place] # (0.0-0.8) K/mm3 Eos # (0.0-0.4) K/mm3 Baso # (0.0-0.1) K/mm3 Seg Neutrophils % (40.0-70.0) % Seg Neutrophils # (1.8-7.7) K/mm3 VBG pH (7.320-7.420) Sodium (137-145) mmol/L Potassium (3.6-5.0) mmol/L Chloride (98-107) mmol/L Carbon Dioxide (22-30) mmol/L Anion Gap mmol/L BUN (7-17) mg/dL Creatinine (0.7-1.2) mg/dL Estimated GFR ml/min BUN/Creatinine Ratio % Glucose (65-100) mg/dL POC Glucose (70-105) Lactic Acid (0.7-2.0) mmol/L Calcium (8.4-10.2) mg/dL Total Bilirubin (0.1-1.2) mg/dL AST (5-40) units/L ALT (7-56) units/L Alkaline Phosphatase (35-129) units/L Total Creatine Kinase (30-135) units/L Troponin T (0.00-0.029) ng/mL Total Protein (6.3-8.2) g/dL Albumin (3.9-5) g/dL Albumin/Globulin Ratio % TSH (0.270-4.200) mlU/mL HCG, Qual (Negative) Urine Color (Yellow) Urine Turbidity (Clear) Urine pH (5.0-7.0) Ur Specific [place] (1.003-1.030) Urine Protein (Negative) mg/dL Urine Glucose (UA) (Negative) mg/dL Urine Ketones (Negative) mg/dL Urine Blood (Negative) Urine Nitrite (Negative) Urine Bilirubin (Negative) Urine Urobilinogen (<2.0) mg/dL Ur Leukocyte Esterase (Negative) Urine WBC (Auto) (0.0-6.0) /HPF Urine RBC (Auto) (0.0-6.0) /HPF U Epithel Cells (Auto) (0-13.0) /HPF Urine Bacteria (Auto) (Negative) /HPF Urine Mucus /HPF Salicylates < 0.3 L (2.8-20.0) mg/dL Urine Opiates Screen Urine Methadone Screen Acetaminophen < 5.0 L (10.0-30.0) ug/mL Ur Barbiturates Screen Ur Phencyclidine Scrn Ur Amphetamines Screen U Benzodiazepines Scrn Urine Cocaine Screen U Marijuana (THC) Screen Drugs of Abuse Note Plasma/Serum Alcohol < 0.01 (0-0.07) % 06/15/18 06/15/18 06/15/18 Range/Units 13:07 13:07 13:07 WBC (4.5-11.0) K/mm3 RBC (3.65-5.03) M/mm3 Hgb (10.1-14.3) gm/dl Hct (30.3-42.9) % MCV (79-97) fl MCH (28-32) pg MCHC (30-34) % RDW (13.2-15.2) % Plt Count (140-440) K/mm3 Lymph % (Auto) (13.4-35.0) % [place] % (Auto) (0.0-7.3) % Eos % (Auto) (0.0-4.3) % Baso % (Auto) (0.0-1.8) % Lymph # (1.2-5.4) K/mm3 [place] # (0.0-0.8) K/mm3 Eos # (0.0-0.4) K/mm3 Baso # (0.0-0.1) K/mm3 Seg Neutrophils % (40.0-70.0) % Seg Neutrophils # (1.8-7.7) K/mm3 VBG pH 7.494 H (7.320-7.420) Sodium (137-145) mmol/L Potassium (3.6-5.0) mmol/L Chloride (98-107) mmol/L Carbon Dioxide (22-30) mmol/L Anion Gap mmol/L BUN (7-17) mg/dL Creatinine (0.7-1.2) mg/dL Estimated GFR ml/min BUN/Creatinine Ratio % Glucose (65-100) mg/dL POC Glucose (70-105) Lactic Acid (0.7-2.0) mmol/L Calcium (8.4-10.2) mg/dL Total Bilirubin (0.1-1.2) mg/dL AST (5-40) units/L ALT (7-56) units/L Alkaline Phosphatase (35-129) units/L Total Creatine Kinase (30-135) units/L Troponin T (0.00-0.029) ng/mL Total Protein (6.3-8.2) g/dL Albumin (3.9-5) g/dL Albumin/Globulin Ratio % TSH 4.270 H (0.270-4.200) mlU/mL HCG, Qual Negative (Negative) Urine Color (Yellow) Urine Turbidity (Clear) Urine pH (5.0-7.0) Ur Specific [place] (1.003-1.030) Urine Protein (Negative) mg/dL Urine Glucose (UA) (Negative) mg/dL Urine Ketones (Negative) mg/dL Urine Blood (Negative) Urine Nitrite (Negative) Urine Bilirubin (Negative) Urine Urobilinogen (<2.0) mg/dL Ur Leukocyte Esterase (Negative) Urine WBC (Auto) (0.0-6.0) /HPF Urine RBC (Auto) (0.0-6.0) /HPF U Epithel Cells (Auto) (0-13.0) /HPF Urine Bacteria (Auto) (Negative) /HPF Urine Mucus /HPF Salicylates (2.8-20.0) mg/dL Urine Opiates Screen Urine Methadone Screen Acetaminophen (10.0-30.0) ug/mL Ur Barbiturates Screen Ur Phencyclidine Scrn Ur Amphetamines Screen U Benzodiazepines Scrn Urine Cocaine Screen U Marijuana (THC) Screen Drugs of Abuse Note Plasma/Serum Alcohol (0-0.07) % 06/15/18 06/15/18 06/15/18 Range/Units 13:42 15:55 16:36 WBC (4.5-11.0) K/mm3 RBC (3.65-5.03) M/mm3 Hgb (10.1-14.3) gm/dl Hct (30.3-42.9) % MCV (79-97) fl MCH (28-32) pg MCHC (30-34) % RDW (13.2-15.2) % Plt Count (140-440) K/mm3 Lymph % (Auto) (13.4-35.0) % [place] % (Auto) (0.0-7.3) % Eos % (Auto) (0.0-4.3) % Baso % (Auto) (0.0-1.8) % Lymph # (1.2-5.4) K/mm3 [place] # (0.0-0.8) K/mm3 Eos # (0.0-0.4) K/mm3 Baso # (0.0-0.1) K/mm3 Seg Neutrophils % (40.0-70.0) % Seg Neutrophils # (1.8-7.7) K/mm3 VBG pH (7.320-7.420) Sodium (137-145) mmol/L Potassium (3.6-5.0) mmol/L Chloride (98-107) mmol/L Carbon Dioxide (22-30) mmol/L Anion Gap mmol/L BUN (7-17) mg/dL Creatinine (0.7-1.2) mg/dL Estimated GFR ml/min BUN/Creatinine Ratio % Glucose (65-100) mg/dL POC Glucose 107 H (70-105) Lactic Acid 2.10 H* 2.20 H* (0.7-2.0) mmol/L Calcium (8.4-10.2) mg/dL Total Bilirubin (0.1-1.2) mg/dL AST (5-40) units/L ALT (7-56) units/L Alkaline Phosphatase (35-129) units/L Total Creatine Kinase (30-135) units/L Troponin T (0.00-0.029) ng/mL Total Protein (6.3-8.2) g/dL Albumin (3.9-5) g/dL Albumin/Globulin Ratio % TSH (0.270-4.200) mlU/mL HCG, Qual (Negative) Urine Color (Yellow) Urine Turbidity (Clear) Urine pH (5.0-7.0) Ur Specific [place] (1.003-1.030) Urine Protein (Negative) mg/dL Urine Glucose (UA) (Negative) mg/dL Urine Ketones (Negative) mg/dL Urine Blood (Negative) Urine Nitrite (Negative) Urine Bilirubin (Negative) Urine Urobilinogen (<2.0) mg/dL Ur Leukocyte Esterase (Negative) Urine WBC (Auto) (0.0-6.0) /HPF Urine RBC (Auto) (0.0-6.0) /HPF U Epithel Cells (Auto) (0-13.0) /HPF Urine Bacteria (Auto) (Negative) /HPF Urine Mucus /HPF Salicylates (2.8-20.0) mg/dL Urine Opiates Screen Urine Methadone Screen Acetaminophen (10.0-30.0) ug/mL Ur Barbiturates Screen Ur Phencyclidine Scrn Ur Amphetamines Screen U Benzodiazepines Scrn Urine Cocaine Screen U Marijuana (THC) Screen Drugs of Abuse Note Plasma/Serum Alcohol (0-0.07) % 06/15/18 06/15/18 Range/Units 16:50 16:50 WBC (4.5-11.0) K/mm3 RBC (3.65-5.03) M/mm3 Hgb (10.1-14.3) gm/dl Hct (30.3-42.9) % MCV (79-97) fl MCH (28-32) pg MCHC (30-34) % RDW (13.2-15.2) % Plt Count (140-440) K/mm3 Lymph % (Auto) (13.4-35.0) % [place] % (Auto) (0.0-7.3) % Eos % (Auto) (0.0-4.3) % Baso % (Auto) (0.0-1.8) % Lymph # (1.2-5.4) K/mm3 [place] # (0.0-0.8) K/mm3 Eos # (0.0-0.4) K/mm3 Baso # (0.0-0.1) K/mm3 Seg Neutrophils % (40.0-70.0) % Seg Neutrophils # (1.8-7.7) K/mm3 VBG pH (7.320-7.420) Sodium (137-145) mmol/L Potassium (3.6-5.0) mmol/L Chloride (98-107) mmol/L Carbon Dioxide (22-30) mmol/L Anion Gap mmol/L BUN (7-17) mg/dL Creatinine (0.7-1.2) mg/dL Estimated GFR ml/min BUN/Creatinine Ratio % Glucose (65-100) mg/dL POC Glucose (70-105) Lactic Acid (0.7-2.0) mmol/L Calcium (8.4-10.2) mg/dL Total Bilirubin (0.1-1.2) mg/dL AST (5-40) units/L ALT (7-56) units/L Alkaline Phosphatase (35-129) units/L Total Creatine Kinase (30-135) units/L Troponin T (0.00-0.029) ng/mL Total Protein (6.3-8.2) g/dL Albumin (3.9-5) g/dL Albumin/Globulin Ratio % TSH (0.270-4.200) mlU/mL HCG, Qual (Negative) Urine Color Straw (Yellow) Urine Turbidity Clear (Clear) Urine pH 7.0 (5.0-7.0) Ur Specific [place] 1.015 (1.003-1.030) Urine Protein <15 mg/dl (Negative) mg/dL Urine Glucose (UA) 150 (Negative) mg/dL Urine Ketones Neg (Negative) mg/dL Urine Blood Sm (Negative) Urine Nitrite Neg (Negative) Urine Bilirubin Neg (Negative) Urine Urobilinogen < 2.0 (<2.0) mg/dL Ur Leukocyte Esterase Sm (Negative) Urine WBC (Auto) 7.0 H (0.0-6.0) /HPF Urine RBC (Auto) 5.0 (0.0-6.0) /HPF U Epithel Cells (Auto) 1.0 (0-13.0) /HPF Urine Bacteria (Auto) 1+ (Negative) /HPF Urine Mucus Few /HPF Salicylates (2.8-20.0) mg/dL Urine Opiates Screen Presumptive negative Urine Methadone Screen Presumptive negative Acetaminophen (10.0-30.0) ug/mL Ur Barbiturates Screen Presumptive negative Ur Phencyclidine Scrn Presumptive negative Ur Amphetamines Screen Presumptive negative U Benzodiazepines Scrn Presumptive negative Urine Cocaine Screen Presumptive negative U Marijuana (THC) Screen Presumptive negative Drugs of Abuse Note Disclamer Plasma/Serum Alcohol (0-0.07) % - EKG Data -: EKG Interpreted by [place] EKG shows normal: sinus rhythm, axis, intervals, QRS complexes, ST-T waves Rate: normal - Radiology Data Radiology results: report reviewed FINAL REPORT EXAM: CT HEAD/BRAIN WO CON HISTORY: Altered Mental Status COMPARISON: None TECHNIQUE: Multiple contiguous axial images were obtained from the skullbase to the vertex without administration of IV contrast. FINDINGS: There is normal brain volume for the patient's age. There is no parenchymal hemorrhage or extra- axial fluid collection. There is no acute territorial infarct. There are calcifications within the bilateral basal ganglia. The ventricles are midline and are not enlarged. The subarachnoid spaces and basilar cisterns are clear. There is no skull fracture. The paranasal sinuses and mastoid air cells are clear. The bilateral orbits are intact. IMPRESSION: No acute intracranial abnormality. CTA CHEST: HISTORY: Altered mental status. COMPARISON: none. TECHNIQUE: Helical CT in 1.25mm intervals following IV contrast. Pulmonary embolus protocol. Sagittal and coronal reformatted images. Rotational MIP images. FINDINGS: Contrast bolus is satisfactory. No pulmonary embolus is identified. Thyroid gland: Normal. Tracheobronchial tree: Normal. Esophagus: Normal. Heart: Normal. Pericardium: Normal. Mediastinum: Normal. Lung [place]: Normal. Pleural Spaces: Normal. Musculoskeletal: Normal. Limited images of the upper abdomen demonstrate moderate hypoattenuation throughout the visualized liver which probably represents fatty infiltration. IMPRESSION: No evidence for pulmonary embolus. Unremarkable CT chest with contrast. - Medical Decision Making Patient is a 42-year-old female that presents emergent complaints of altered mental status and agitation. Patient was given Geodon shavonne upon arrival for agitation and agitation improved. Patient's labs unremarkable except for elevated lactic acid and UTI. Patient's head CT is negative. Patient's CTA is negative. Patient admitted to the hospital service for further evaluation and treatment. Discussed case with Hospitalist. - Differential Diagnosis ams. dehydration encep Critical Care Time: Yes Critical care attestation.: If time is entered above; I have spent that time in minutes in the direct care of this critically ill patient, excluding procedure time. Critical Care Time: 45 minutes ED Disposition Clinical Impression: Encephalopathy, Lactic acid acidosis, Diabetes mellitus, insulin dependent (IDDM), controlled Altered mental state Qualifiers: Altered mental status type: unspecified Qualified Code(s): R41.82 - Altered mental status, unspecified UTI (urinary tract infection) Qualifiers: Urinary tract infection type: acute cystitis Hematuria presence: with hematuria Qualified Code(s): N30.01 - Acute cystitis with hematuria Disposition: 09 OP ADMIT IP TO THIS HOSP Is pt being admited?: Yes Does the pt Need Aspirin: No Condition: Critical Time of Disposition: 15:41
[2018-06-15 13:37] LABS: Basophils % (Auto) 0.3 % (0.0-1.8); Hematocrit 39.8 % (30.3-42.9); Hemoglobin 13.4 gm/dl (10.1-14.3); Lymphocytes # (Auto) 1.9 K/mm3 (1.2-5.4); Lymphocytes % (Auto) 30.9 % (13.4-35.0); Mean Corpuscular HGB Conc 34 % (30-34); Mean Corpuscular Volume 103 fl (79-97); Monocytes # (Auto) 0.3 K/mm3 (0.0-0.8); Monocytes % (Auto) 4.2 % (0.0-7.3); Platelet Count 154 K/mm3 (140-440); Red Blood Count 3.88 M/mm3 (3.65-5.03); Red Cell Distribution Width 14.7 % (13.2-15.2)
[2018-06-15 13:49] LABS: Alanine Aminotransferase 96 units/L (7-56); Albumin 3.2 g/dL (3.9-5); BUN/Creatinine Ratio 60; Blood Urea Nitrogen 18 mg/dL (7-17); Hemolysis Index 21
--- NOTE | 2018-06-15 13:59 | Cat Scan Report ---
FINAL REPORT EXAM: CT HEAD/BRAIN WO CON HISTORY: Altered Mental Status COMPARISON: None TECHNIQUE: Multiple contiguous axial images were obtained from the skullbase to the vertex without administration of IV contrast. FINDINGS: There is normal brain volume for the patient's age. There is no parenchymal hemorrhage or extra-axial fluid collection. There is no acute territorial infarct. There are calcifications within the bilater al basal ganglia. The ventricles are midline and are not enlarged. The subarachnoid spaces and basila r cisterns are clear. There is no skull fracture. The paranasal sinuses and mastoid air cells are julian ar. The bilateral orbits are intact. IMPRESSION: No acute intracranial abnormality.
--- NOTE | 2018-06-15 15:13 | Cat Scan Report ---
CTA CHEST: HISTORY: Altered mental status. COMPARISON: none. TECHNIQUE: Helical CT in 1.25mm intervals following IV contrast. Pulmonary embolus protocol. Sagittal and coronal reformatted images. Rotational MIP images. FINDINGS: Contrast bolus is satisfactory. No pulmonary embolus is identified. Thyroid gland: Normal. Tracheobronchial tree: Normal. Esophagus: Normal. Heart: Normal. Pericardium: Normal. Mediastinum: Normal. Lung [place]: Normal. Pleural Spaces: Normal. Musculoskeletal: Normal. Limited images of the upper abdomen demonstrate moderate hypoattenuation throughout the visualized liver which probably represents fatty infiltration. IMPRESSION: No evidence for pulmonary embolus. Unremarkable CT chest with contrast.
[2018-06-15 17:17] LABS: Bacteria,Urine 1+ /HPF (Negative); Bilirubin,Urine NEG (Negative); Blood,Urine SM (Negative); Color,Urine Straw (Yellow); Mucus,Urine FEW /HPF; Protein,Urine <15 mg/dL mg/dL (Negative); Urobilinogen,Urine < 2.0 mg/dL (<2.0)
[2018-06-15 17:23] LABS: Amphetamine Screen,Urine PRESUMPTIVE NEGATIVE; Benzodiazepines Screen,Urine PRESUMPTIVE NEGATIVE; Cannabinoid Screen,Urine PRESUMPTIVE NEGATIVE; Cocaine Screen,Urine PRESUMPTIVE NEGATIVE; Methadone Screen,Urine PRESUMPTIVE NEGATIVE; Opiate Screen,Urine PRESUMPTIVE NEGATIVE
[2018-06-15] MEDS ORDERED: D50W (25GM) Syringe IV ONE (21:08)
[2018-06-15] MEDS ORDERED: D50W (25GM) Syringe IV PRN (22:19)
--- NOTE | 2018-06-15 23:26 | History and Physical Report ---
History of Present Illness Date of examination: 06/15/18 Date of admission: 06/15/18 17:03 Chief complaint: Decreased responsiveness for the last a few hours History of present illness: 42-year-old [place] female with history of insulin-dependent diabetes brought in for decreased responsiveness. Patient apparently had a low blood glucose level. There was a language barrier. Qwilt ict quality assurance engineer was used to complicated with the . Patient did not have any fever or chills. No neck stiffness. As per EMS her blood glucose was 76 and after admission to the floor blood glucose dropped to 23. No fever or chills. No cough. No body aches. Past Medical History Previous Medical History?: Yes Diabetes: Yes (x 20 years,insulin and diet controlled) Surgical History Additional Surgical History: right leg Social History Smoking Status: Never Smoker Family history Htn Medications Home Medications: Home Medications Medication Instructions Recorded Confirmed Last Taken Type Ferrous Sulfate [Feosol 325 MG tab] 325 mg PO BID #60 tablet 08/25/16 Unknown Rx HYDROcodone/APAP 5-325 [[place] 1 each PO Q6HR PRN #30 tablet 08/25/16 Unknown Rx 5/325] Ibuprofen [Motrin] 800 mg PO Q8HR PRN #30 tablet 08/25/16 Unknown Rx Vit Calc,Iron,Folic 1 each PO DAILY #30 tablet 08/25/16 Unknown Rx [ Vitamins] Review of Systems ROS: Stated complaint: AMS Other details as noted in HPI Comment: Unobtainable due to pts medical conditions Medications and Allergies Allergies Allergy/AdvReac Type Severity Reaction Status Date / Time No Known Allergies Allergy Unverified 01/21/16 09:19 Home Medications Medication Instructions Recorded Confirmed Last Taken Type Ferrous Sulfate [Feosol 325 MG tab] 325 mg PO BID #60 tablet 08/25/16 Unknown Rx HYDROcodone/APAP 5-325 [[place] 1 each PO Q6HR PRN #30 tablet 08/25/16 Unknown Rx 5/325] Ibuprofen [Motrin] 800 mg PO Q8HR PRN #30 tablet 08/25/16 Unknown Rx Vit Calc,Iron,Folic 1 each PO DAILY #30 tablet 08/25/16 Unknown Rx [ Vitamins] Active Meds: Active Medications Dextrose (D50w (25gm) Syringe) 50 ml IV PRN PRN PRN Reason: Hypoglycemia Insulin Human Lispro (Humalog) 0 unit SUB-Q ACHS ADDI; Protocol Exam - Constitutional Vitals: Temp Pulse Resp BP Pulse Ox 98.6 F 86 20 116/73 100 06/15/18 19:35 06/15/18 19:35 06/15/18 19:35 06/15/18 19:35 06/15/18 19:35 General appearance: Present: no acute distress, well-nourished - EENT Eyes: Present: PERRL ENT: hearing intact, clear oral mucosa - Neck Neck: Present: supple, normal ROM - Respiratory Respiratory effort: normal Respiratory: bilateral: CTA - Cardiovascular Heart rate: 967 Rhythm: regular Heart Sounds: Present: S1 & S2. Absent: rub, click - Extremities Extremities: pulses symmetrical, No edema Peripheral Pulses: within normal limits - Abdominal General gastrointestinal: Present: soft, non-tender, non-distended, normal bowel sounds Female genitourinary: Present: normal - Integumentary Integumentary: Present: clear, warm, dry - Musculoskeletal Musculoskeletal: gait normal, strength equal bilaterally - Psychiatric Psychiatric: intact judgment & insight, other (decreased responsiveness) - Neurologic Neurologic: other (TON CYLINDER INSPECTOR exam could not be done , decreased responsiveness, unable to wake up) - Allied Health Allied health notes reviewed: nursing, case management Results - Labs CBC & Chem 7: 06/15/18 13:07 06/15/18 13:07 Labs: Laboratory Last Values WBC 6.1 K/mm3 (4.5-11.0) 06/15/18 13:07 RBC 3.88 M/mm3 (3.65-5.03) 06/15/18 13:07 Hgb 13.4 gm/dl (10.1-14.3) 06/15/18 13:07 Hct 39.8 % (30.3-42.9) 06/15/18 13:07 MCV 103 fl (79-97) H 06/15/18 13:07 MCH 34 pg (28-32) H 06/15/18 13:07 MCHC 34 % (30-34) 06/15/18 13:07 RDW 14.7 % (13.2-15.2) 06/15/18 13:07 Plt Count 154 K/mm3 (140-440) 06/15/18 13:07 Lymph % (Auto) 30.9 % (13.4-35.0) 06/15/18 13:07 [place] % (Auto) 4.2 % (0.0-7.3) 06/15/18 13:07 Eos % (Auto) 0.0 % (0.0-4.3) 06/15/18 13:07 Baso % (Auto) 0.3 % (0.0-1.8) 06/15/18 13:07 Lymph # 1.9 K/mm3 (1.2-5.4) 06/15/18 13:07 [place] # 0.3 K/mm3 (0.0-0.8) 06/15/18 13:07 Eos # 0.0 K/mm3 (0.0-0.4) 06/15/18 13:07 Baso # 0.0 K/mm3 (0.0-0.1) 06/15/18 13:07 Seg Neutrophils % 64.6 % (40.0-70.0) 06/15/18 13:07 Seg Neutrophils # 3.9 K/mm3 (1.8-7.7) 06/15/18 13:07 VBG pH 7.494 (7.320-7.420) H 06/15/18 13:07 Sodium 139 mmol/L (137-145) 06/15/18 13:07 Potassium 3.7 mmol/L (3.6-5.0) 06/15/18 13:07 Chloride 106.3 mmol/L (98-107) 06/15/18 13:07 Carbon Dioxide 19 mmol/L (22-30) L 06/15/18 13:07 Anion Gap 17 mmol/L 06/15/18 13:07 BUN 18 mg/dL (7-17) H 06/15/18 13:07 Creatinine 0.3 mg/dL (0.7-1.2) L 06/15/18 13:07 Estimated GFR > 60 ml/min 06/15/18 13:07 BUN/Creatinine Ratio 60 % 06/15/18 13:07 Glucose 99 mg/dL (65-100) 06/15/18 13:07 POC Glucose 279 (70-105) H 06/15/18 21:19 Lactic Acid 2.20 mmol/L (0.7-2.0) H* 06/15/18 16:36 Calcium 8.0 mg/dL (8.4-10.2) L 06/15/18 13:07 Total Bilirubin 0.70 mg/dL (0.1-1.2) 06/15/18 13:07 AST 100 units/L (5-40) H 06/15/18 13:07 ALT 96 units/L (7-56) H 06/15/18 13:07 Alkaline Phosphatase 148 units/L (35-129) H 06/15/18 13:07 Total Creatine Kinase 170 units/L (30-135) H 06/15/18 13:07 Troponin T < 0.010 ng/mL (0.00-0.029) 06/15/18 13:07 Total Protein 6.2 g/dL (6.3-8.2) L 06/15/18 13:07 Albumin 3.2 g/dL (3.9-5) L 06/15/18 13:07 Albumin/Globulin Ratio 1.1 % 06/15/18 13:07 TSH 4.270 mlU/mL (0.270-4.200) H 06/15/18 13:07 HCG, Qual Negative (Negative) 06/15/18 13:07 Urine Color Straw (Yellow) 06/15/18 16:50 Urine Turbidity Clear (Clear) 06/15/18 16:50 Urine pH 7.0 (5.0-7.0) 06/15/18 16:50 Ur Specific [place] 1.015 (1.003-1.030) 06/15/18 16:50 Urine Protein <15 mg/dl mg/dL (Negative) 06/15/18 16:50 Urine Glucose (UA) 150 mg/dL (Negative) 06/15/18 16:50 Urine Ketones Neg mg/dL (Negative) 06/15/18 16:50 Urine Blood Sm (Negative) 06/15/18 16:50 Urine Nitrite Neg (Negative) 06/15/18 16:50 Urine Bilirubin Neg (Negative) 06/15/18 16:50 Urine Urobilinogen < 2.0 mg/dL (<2.0) 06/15/18 16:50 Ur Leukocyte Esterase Sm (Negative) 06/15/18 16:50 Urine WBC (Auto) 7.0 /HPF (0.0-6.0) H 06/15/18 16:50 Urine RBC (Auto) 5.0 /HPF (0.0-6.0) 06/15/18 16:50 U Epithel Cells (Auto) 1.0 /HPF (0-13.0) 06/15/18 16:50 Urine Bacteria (Auto) 1+ /HPF (Negative) 06/15/18 16:50 Urine Mucus Few /HPF 06/15/18 16:50 Salicylates < 0.3 mg/dL (2.8-20.0) L 06/15/18 13:07 Urine Opiates Screen Presumptive negative 06/15/18 16:50 Urine Methadone Screen Presumptive negative 06/15/18 16:50 Acetaminophen < 5.0 ug/mL (10.0-30.0) L 06/15/18 13:07 Ur Barbiturates Screen Presumptive negative 06/15/18 16:50 Ur Phencyclidine Scrn Presumptive negative 06/15/18 16:50 Ur Amphetamines Screen Presumptive negative 06/15/18 16:50 U Benzodiazepines Scrn Presumptive negative 06/15/18 16:50 Urine Cocaine Screen Presumptive negative 06/15/18 16:50 U Marijuana (THC) Screen Presumptive negative 06/15/18 16:50 Drugs of Abuse Note Disclamer 06/15/18 16:50 Plasma/Serum Alcohol < 0.01 % (0-0.07) 06/15/18 13:07 Short CBC 06/15/18 Range/Units 13:07 WBC 6.1 (4.5-11.0) K/mm3 Hgb 13.4 (10.1-14.3) gm/dl Hct 39.8 (30.3-42.9) % Plt Count 154 (140-440) K/mm3 BMP 06/15/18 13:07 Sodium 139 Potassium 3.7 Chloride 106.3 Carbon Dioxide 19 L BUN 18 H Creatinine 0.3 L Glucose 99 Calcium 8.0 L Cardiac Enzymes 06/15/18 Range/Units 13:07 Total Creatine Kinase 170 H (30-135) units/L Troponin T < 0.010 (0.00-0.029) ng/mL Liver Function 06/15/18 Range/Units 13:07 Total Bilirubin 0.70 (0.1-1.2) mg/dL AST 100 H (5-40) units/L ALT 96 H (7-56) units/L Alkaline Phosphatase 148 H (35-129) units/L Albumin 3.2 L (3.9-5) g/dL Urine 06/15/18 Range/Units 16:50 Urine Color Straw (Yellow) Urine pH 7.0 (5.0-7.0) Ur Specific [place] 1.015 (1.003-1.030) Urine Protein <15 mg/dl (Negative) mg/dL Urine Glucose (UA) 150 (Negative) mg/dL - Imaging and Cardiology EKG: report reviewed (normal sinus rhythm heart rate of 96 per minute ventricular premature complexes present) Imaging and Cardiology: CT angiogram of the chest IMPRESSION: No evidence for pulmonary embolus. Unremarkable CT chest with contrast. Head CT IMPRESSION: No acute intracranial abnormality. Assessment and Plan Advance Directives: Yes (full code) VTE prophylaxis?: Chemical Plan of care discussed with patient/family: Yes - Patient Problems (1) Acute encephalopathy Current Visit: Yes Status: Acute Plan to address problem: Probably secondary to hypoglycemia D5 normal saline at this point Coverage only if sugars cross 200 (2) Hypoglycemia Current Visit: Yes Status: Acute Plan to address problem: Etiology unclear No insulin at this point We will trend her glucose levels and then decide (3) Lactic acid acidosis Current Visit: Yes Status: Acute Plan to address problem: Sepsis unlikely Patient on ceftriaxone for urinary tract infection (4) UTI (urinary tract infection) Current Visit: Yes Status: Acute Qualifiers: Urinary tract infection type: acute cystitis Hematuria presence: with hematuria Qualified Code(s): N30.01 - Acute cystitis with hematuria Plan to address problem: UTI mild Await cultures Patient started on empiric ceftriaxone for elevated lactic acid (5) Type 2 diabetes mellitus Current Visit: Yes Status: Chronic Qualifiers: Diabetes mellitus ophthalmic lens inspector insulin use: with ophthalmic lens inspector use Plan to address problem: Coverage as necessary Check hemoglobin A1c (6) DVT prophylaxis Current Visit: Yes Status: Acute Plan to address problem: Patient initiated on Lovenox and GI prophylaxis
[2018-06-15] MEDS ORDERED: SODIUM CHLORIDE FLUSH SYRINGE 10 ML IV PRN (23:40)
[2018-06-15] MEDS ORDERED: ZOFRAN IV PRN (23:40)
[2018-06-15] MEDS ORDERED: TYLENOL PO PRN (23:40)
[2018-06-15] MEDS ORDERED: IBUPROFEN PO PRN (23:40)
[2018-06-16] MEDS: D5NS 1,000 ML IV SCH ×2 (01:38→12:10)
[2018-06-16 06:25] LABS: Basophils % (Auto) 0.3 % (0.0-1.8); Eosinophils % (Auto) 0.2 % (0.0-4.3); Hematocrit 31.5 % (30.3-42.9); Hemoglobin 10.8 gm/dl (10.1-14.3); Lymphocytes # (Auto) 1.5 K/mm3 (1.2-5.4); Lymphocytes % (Auto) 25.6 % (13.4-35.0); Mean Corpuscular HGB Conc 34 % (30-34); Mean Corpuscular Volume 102 fl (79-97); Monocytes # (Auto) 0.3 K/mm3 (0.0-0.8); Monocytes % (Auto) 5.2 % (0.0-7.3); Platelet Count 128 K/mm3 (140-440); Red Blood Count 3.08 M/mm3 (3.65-5.03); Red Cell Distribution Width 14.3 % (13.2-15.2)
[2018-06-16 06:45] LABS: BUN/Creatinine Ratio 35; Blood Urea Nitrogen 14 mg/dL (7-17); Calcium 7.4 mg/dL (8.4-10.2); Hemolysis Index 7
[2018-06-16] MEDS ORDERED: ROCEPHIN/NS 1 GM/50 ML 1 GM/50 ML BAG IV SCH (10:00)
[2018-06-16] MEDS ORDERED: PEPCID PO SCH (10:00)
[2018-06-16] MEDS ORDERED: SODIUM CHLORIDE FLUSH SYRINGE 10 ML IV SCH (10:00)
[2018-06-16] MEDS: HumaLOG SUB-Q SCH ×3 (10:18→20:56)
--- NOTE | 2018-06-16 10:33 | Progress Note ---
Assessment and Plan Assessment and plan: 42-year-old female, high dictation box who presents with decreased responsiveness found to have a low glucose. Glucose was as low as 23, improved with dextrose administration Hospital course Patient has received dextrose, with resolution of hypoglycemia, now hyperglycemic, discontinue dextrose drip Movement A1c is 5.9 Potassium has been repleted Diagnoses Hypoglycemia Type 2 diabetes, insulin dependence hypokalemia For some reason for medications have not be reported to this admission, the last time that her home meds are recorded was in August 2016. Kelli to the charge nurse bring her medication list up-to-date. History Interval history: Review of systems Constitutional: No fevers, no malaise, no joint pains CVS: No chest pain, no orthopnea, no dyspnea on exertion, no pedal edema GI: No abdominal pain, no diarrhea, no vomiting, no constipation Respiratory: No shortness of breath, no wheezing, no coughing Hospitalist Physical - Physical exam Narrative exam: General.: Appears well, no distress, nontoxic HEENT: Moist mucous membranes, extraocular muscles intact, no lymphadenopathy Neck: supple Cardiac: S1-S2 heard Lungs: clear to auscultation bilaterally Abdomen: soft , nontender, nondistended, bowel sounds positive Extremities: no edema clubbing or cyanosis Skin: no rash or lesions Neurologic: no gross focal deficits Psych: calm, and cooperative - Constitutional Vitals: Temp Pulse Resp BP Pulse Ox 97.9 F 87 18 116/66 97 06/16/18 08:24 06/16/18 08:24 06/16/18 08:24 06/16/18 08:24 06/16/18 08:24 General appearance: Present: no acute distress, well-nourished Results - Labs CBC & Chem 7: 06/16/18 05:39 06/16/18 05:39 Labs: Laboratory Last Values WBC 5.7 K/mm3 (4.5-11.0) 06/16/18 05:39 RBC 3.08 M/mm3 (3.65-5.03) L 06/16/18 05:39 Hgb 10.8 gm/dl (10.1-14.3) 06/16/18 05:39 Hct 31.5 % (30.3-42.9) D 06/16/18 05:39 MCV 102 fl (79-97) H 06/16/18 05:39 MCH 35 pg (28-32) H 06/16/18 05:39 MCHC 34 % (30-34) 06/16/18 05:39 RDW 14.3 % (13.2-15.2) 06/16/18 05:39 Plt Count 128 K/mm3 (140-440) L 06/16/18 05:39 Lymph % (Auto) 25.6 % (13.4-35.0) 06/16/18 05:39 [place] % (Auto) 5.2 % (0.0-7.3) 06/16/18 05:39 Eos % (Auto) 0.2 % (0.0-4.3) 06/16/18 05:39 Baso % (Auto) 0.3 % (0.0-1.8) 06/16/18 05:39 Lymph # 1.5 K/mm3 (1.2-5.4) 06/16/18 05:39 [place] # 0.3 K/mm3 (0.0-0.8) 06/16/18 05:39 Eos # 0.0 K/mm3 (0.0-0.4) 06/16/18 05:39 Baso # 0.0 K/mm3 (0.0-0.1) 06/16/18 05:39 Seg Neutrophils % 68.7 % (40.0-70.0) 06/16/18 05:39 Seg Neutrophils # 3.9 K/mm3 (1.8-7.7) 06/16/18 05:39 VBG pH 7.494 (7.320-7.420) H 06/15/18 13:07 Sodium 145 mmol/L (137-145) 06/16/18 05:39 Potassium 3.2 mmol/L (3.6-5.0) L 06/16/18 05:39 Chloride 116.1 mmol/L (98-107) H 06/16/18 05:39 Carbon Dioxide 20 mmol/L (22-30) L 06/16/18 05:39 Anion Gap 12 mmol/L 06/16/18 05:39 BUN 14 mg/dL (7-17) 06/16/18 05:39 Creatinine 0.4 mg/dL (0.7-1.2) L 06/16/18 05:39 Estimated GFR > 60 ml/min 06/16/18 05:39 BUN/Creatinine Ratio 35 % 06/16/18 05:39 Glucose 275 mg/dL (65-100) H 06/16/18 05:39 POC Glucose 243 (70-105) H 06/16/18 06:20 Hemoglobin A1c 5.9 % (4-6) 06/15/18 23:56 Lactic Acid 2.20 mmol/L (0.7-2.0) H* 06/15/18 16:36 Calcium 7.4 mg/dL (8.4-10.2) L 06/16/18 05:39 Total Bilirubin 0.70 mg/dL (0.1-1.2) 06/15/18 13:07 AST 100 units/L (5-40) H 06/15/18 13:07 ALT 96 units/L (7-56) H 06/15/18 13:07 Alkaline Phosphatase 148 units/L (35-129) H 06/15/18 13:07 Total Creatine Kinase 170 units/L (30-135) H 06/15/18 13:07 Troponin T < 0.010 ng/mL (0.00-0.029) 06/15/18 13:07 Total Protein 6.2 g/dL (6.3-8.2) L 06/15/18 13:07 Albumin 3.2 g/dL (3.9-5) L 06/15/18 13:07 Albumin/Globulin Ratio 1.1 % 06/15/18 13:07 TSH 4.270 mlU/mL (0.270-4.200) H 06/15/18 13:07 HCG, Qual Negative (Negative) 06/15/18 13:07 Urine Color Straw (Yellow) 06/15/18 16:50 Urine Turbidity Clear (Clear) 06/15/18 16:50 Urine pH 7.0 (5.0-7.0) 06/15/18 16:50 Ur Specific [place] 1.015 (1.003-1.030) 06/15/18 16:50 Urine Protein <15 mg/dl mg/dL (Negative) 06/15/18 16:50 Urine Glucose (UA) 150 mg/dL (Negative) 06/15/18 16:50 Urine Ketones Neg mg/dL (Negative) 06/15/18 16:50 Urine Blood Sm (Negative) 06/15/18 16:50 Urine Nitrite Neg (Negative) 06/15/18 16:50 Urine Bilirubin Neg (Negative) 06/15/18 16:50 Urine Urobilinogen < 2.0 mg/dL (<2.0) 06/15/18 16:50 Ur Leukocyte Esterase Sm (Negative) 06/15/18 16:50 Urine WBC (Auto) 7.0 /HPF (0.0-6.0) H 06/15/18 16:50 Urine RBC (Auto) 5.0 /HPF (0.0-6.0) 06/15/18 16:50 U Epithel Cells (Auto) 1.0 /HPF (0-13.0) 06/15/18 16:50 Urine Bacteria (Auto) 1+ /HPF (Negative) 06/15/18 16:50 Urine Mucus Few /HPF 06/15/18 16:50 Salicylates < 0.3 mg/dL (2.8-20.0) L 06/15/18 13:07 Urine Opiates Screen Presumptive negative 06/15/18 16:50 Urine Methadone Screen Presumptive negative 06/15/18 16:50 Acetaminophen < 5.0 ug/mL (10.0-30.0) L 06/15/18 13:07 Ur Barbiturates Screen Presumptive negative 06/15/18 16:50 Ur Phencyclidine Scrn Presumptive negative 06/15/18 16:50 Ur Amphetamines Screen Presumptive negative 06/15/18 16:50 U Benzodiazepines Scrn Presumptive negative 06/15/18 16:50 Urine Cocaine Screen Presumptive negative 06/15/18 16:50 U Marijuana (THC) Screen Presumptive negative 06/15/18 16:50 Drugs of Abuse Note Disclamer 06/15/18 16:50 Plasma/Serum Alcohol < 0.01 % (0-0.07) 06/15/18 13:07
[2018-06-16] MEDS ORDERED: K-DUR PO NR (11:00)
--- NOTE | 2018-06-16 16:43 | Discharge Summary ---
Providers - Providers Date of Admission: 06/15/18 17:03 Attending physician: TONY BLISS MD 06/15/18 23:41 Consult to Dietitian/Nutrition [CONS] Routine Physician Instructions: Reason For Exam: Reason for Consult: Diet education Primary care physician: TRUDY REED Hospitalization Condition: Critical Hospital course: 42-year-old female, who presents with decreased responsiveness found to have a low glucose. Glucose was as low as 23, improved with dextrose administration -Patient is type I diabetic, who has brittle diabetes, takes 10 units of Lantus at bedtime. The patient admitted that she does not check her glucose before taking insulin, she just takes it everyday. -She was educated, Lantus was discontinued. She was prescribed a premeal sliding scale. She was advised that she was always check her glucose before taking insulin, but she must have the food in front of her before she injects the pre-meal insulin. Her potassium was also repleted prior to discharge Diagnoses Hypoglycemia Type 1 diabetes hypokalemia Disposition: - TO HOME OR SELFCARE Time spent for discharge: 33 mins Core Measure Documentation - Palliative Care Palliative Care/ Comfort Measures: Not Applicable - Core Measures Any of the following diagnoses?: none Exam - Constitutional Vitals: Temp Pulse Resp BP Pulse Ox 97.9 F 87 18 116/66 100 06/16/18 08:24 06/16/18 08:24 06/16/18 08:24 06/16/18 08:24 06/16/18 11:49 General appearance: Present: no acute distress, well-nourished - EENT Eyes: Present: PERRL ENT: hearing intact, clear oral mucosa - Neck Neck: Present: supple, normal ROM - Respiratory Respiratory effort: normal Respiratory: bilateral: CTA - Cardiovascular Heart Sounds: Present: S1 & S2. Absent: rub, click - Extremities Extremities: pulses symmetrical, No edema Peripheral Pulses: within normal limits - Abdominal General gastrointestinal: Present: soft, non-tender, non-distended, normal bowel sounds Female genitourinary: Present: normal - Integumentary Integumentary: Present: clear, warm, dry - Musculoskeletal Musculoskeletal: gait normal, strength equal bilaterally - Psychiatric Psychiatric: appropriate mood/affect, intact judgment & insight - Neurologic Neurologic: CNII-XII intact, moves all extremities Plan Follow up with: [facility] [Provider Group] - 7 Days TRUDY REED MD [Primary Care Provider] - 3-5 Days Prescriptions: RX: Insulin Lispro [HumaLOG VIAL] 0 units SQ AC #1 vial
[2018-06-16 17:07] VITALS: BP 129/73
[2018-06-16] MEDS ORDERED: LOVENOX SUB-Q SCH (22:00)
== END 2018-06-16 20:57 | disposition home or self-care (01) | DRG 638 ==
LOC: ED 12:24 → 4A 17:03
PROVIDERS: ADMIT Internal Medicine; ATTEND Internal Medicine
DX: E11.649 Type 2 diabetes mellitus with hypoglycemia without coma (principal); G93.40 Encephalopathy, unspecified; N30.01 Acute cystitis with hematuria; E87.6 Hypokalemia; Z82.49 Family history of ischemic heart disease and other diseases of the circulatory system; Z79.4 Long term (current) use of insulin
CPT/HCPCS: 36415; 70450; 71275; 80048; 80053; 80307; 80320; 81001; 82140; 82550; 82805; 82947; 82962; 83036; 84443; 84484; 84703; 85025; 93005; 93010; 94760; G0378; G0480; J0696; J1815; J3486; J7030; J7042; Q9967

== ENCOUNTER 2018-08-20 09:41 | Inpatient (IN) | payer OTHER ==
[2018-08-20] MEDS ORDERED: NARCAN 2 MG/2 ML IV ONE ×2 (10:30→10:32)
[2018-08-20] MEDS ORDERED: NARCAN 2 MG/2 ML ONE (10:34)
--- NOTE | 2018-08-20 10:37 | Emergency Department Report ---
HPI - General Chief Complaint: Neuro Symptoms/Deficit Time Seen by Provider: 08/20/18 10:11 - HPI HPI: Room 18 The patient is a 42-year-old female presenting with a chief complaint of altered mental status. Per the the patient has a new diagnosis of diabetes and is currently on insulin. The states the patient is uncertain about appropriate dose herself. He states at approximately noon before eating she felt glucose to be elevated (value unknown) the states patient and took some insulin and ate her food. After eating the patient again checked her blood sugar attempted to be in the 300s so she reportedly took another dose of insulin. At approximately 01:00 this morning the states the patient took another dose of insulin and everyone went to sleep. This morning at approximately 07:00 the patient was found unresponsive. states patient has not been complaining of anything recently Location: Mental state Duration: [See above] Quality: Altered Severity: Moderate Modifying factors: [see above] Context: [see above] Mode of transportation: [not driving] ED Past Medical Hx - Past Medical History Previous Medical History?: Yes Hx Diabetes: Yes - Surgical History Past Surgical History?: Yes Additional Surgical History: right leg fracture repair - Family History Family history: no significant - Social History Smoking Status: Never Smoker Substance Use Type: None - Medications Home Medications: Home Medications Medication Instructions Recorded Confirmed Last Taken Type Insulin Lispro [HumaLOG VIAL] 0 units SQ AC #1 vial 06/16/18 Unknown Rx ED Review of Systems ROS: Stated complaint: AMS Other details as noted in HPI Comment: Unobtainable due to pts medical conditions Physical Exam - Physical Exam Vital Signs: Vital Signs 08/20/18 08/20/18 08/20/18 09:58 09:59 10:00 Temperature 97.8 F Pulse Rate 98 H 86 85 Respiratory 15 14 14 Rate Blood Pressure 118/77 114/75 O2 Sat by Pulse 99 100 Oximetry Physical Exam: GENERAL: The patient is well-developed well-nourished female lying on stretcher sleeping not appearing to be in acute distress. Patient grimaces and Localizes to sternal rub HEENT: Normocephalic. Atraumatic. Pupils 5-3 mm bilaterally. Patient has moist mucous membranes. NECK: Supple. Trachea midline CHEST/LUNGS: Clear to auscultation. There is no respiratory distress noted. HEART/CARDIOVASCULAR: Regular. There is no tachycardia. There is no gallop rub or murmur. ABDOMEN: Abdomen is soft, nontender. Patient has normal bowel sounds. There is no abdominal distention. SKIN: There is no rash. There is no edema. There is no diaphoresis. NEURO: The patient is asleep but grimaces and localizes to sternal rub. Patient will not speak MUSCULOSKELETAL: There is no evidence of acute injury. ED Course Vital Signs 08/20/18 08/20/18 08/20/18 09:58 09:59 10:00 Temperature 97.8 F Pulse Rate 98 H 86 85 Respiratory 15 14 14 Rate Blood Pressure 118/77 114/75 O2 Sat by Pulse 99 100 Oximetry ED Medical Decision Making - Lab Data Result diagrams: 08/20/18 10:51 08/20/18 10:51 - Radiology Data Radiology results: report reviewed (CT head), image reviewed (CT head) [facility] [address] [place] [address] Cat Scan Report Signed Patient: ANCA REYES MR#: [id number] : 1975 Acct:[id number] Age/Sex: 42 / F ADM Date: 08/20/18 Loc: ED Attending Dr: Ordering Physician: SERAFIN INTERIANO MD Date of Service: 08/20/18 Procedure(s): CT head/brain wo con Accession Number(s): [id number] cc: SERAFIN INTERIANO MD PROCEDURE: CT HEAD/BRAIN WO CON TECHNIQUE: CT examination of the head without IV contrast HISTORY: altered mental status COMPARISONS: 06/15/2018 FINDINGS: Stable physiologic calcifications in the basal ganglia bilaterally. No acute air-fluid level visualized in the included air-filled sinuses. Bone windows demonstrate no acute fracture. The brain is without mass, mass effect, hemorrhage, or acute infarct. There is no extra-axial intracranial bleed, brain bleed, or midline shift. The ventricles and sulci are age-appropriate. IMPRESSION: No acute CVA, intracranial bleed, or brain mass This document is electronically signed by Zhou Cash MD., August 20 2018 12:27:57 PM ET Transcribed By: MAE Dictated By: ZHOU CASH MD Electronically Authenticated By: ZHOU CASH MD Signed Date/Time: 08/20/18 1230 DD/ 1201 TD/TT: 08/20/18 1201 - Differential Diagnosis metabolic encephalopathy, ICH, intoxication, hypoglycemia Critical care attestation.: If time is entered above; I have spent that time in minutes in the direct care of this critically ill patient, excluding procedure time. ED Disposition Clinical Impression: Altered mental status Disposition: - OP ADMIT IP TO THIS HOSP Is pt being admited?: Yes Does the pt Need Aspirin: Yes Condition: Fair Time of Disposition: 13:24 (hospitalist notified (Dr Cowart))
[2018-08-20 11:04] LABS: Basophils % (Auto) 0.1 % (0.0-1.8); Eosinophils % (Auto) 0.3 % (0.0-4.3); Hematocrit 33.6 % (30.3-42.9); Hemoglobin 11.5 gm/dl (10.1-14.3); Lymphocytes # (Auto) 0.9 K/mm3 (1.2-5.4); Lymphocytes % (Auto) 19.3 % (13.4-35.0); Mean Corpuscular HGB Conc 34 % (30-34); Mean Corpuscular Volume 100 fl (79-97); Monocytes # (Auto) 0.2 K/mm3 (0.0-0.8); Monocytes % (Auto) 3.6 % (0.0-7.3); Platelet Count 114 K/mm3 (140-440); Red Blood Count 3.38 M/mm3 (3.65-5.03); Red Cell Distribution Width 13.9 % (13.2-15.2)
[2018-08-20 11:24] LABS: Creatine Kinase MB 1.6 ng/mL (0.0-4.0)
[2018-08-20 11:25] LABS: Alanine Aminotransferase 101 units/L (7-56); BUN/Creatinine Ratio 67; Blood Urea Nitrogen 20 mg/dL (7-17); Calcium 7.8 mg/dL (8.4-10.2); Hemolysis Index 9
[2018-08-20 11:26] LABS: INR 1.05 (0.87-1.13)
[2018-08-20 11:27] LABS: Partial Thromboplastin Time 30.2 Sec. (24.2-36.6)
[2018-08-20 11:30] LABS: Free T4 (Free Thyroxine) 0.89 ng/dL (0.76-1.46)
[2018-08-20] MEDS ORDERED: VERSED IV NR (12:00)
--- NOTE | 2018-08-20 12:30 | Cat Scan Report ---
PROCEDURE: CT HEAD/BRAIN WO CON TECHNIQUE: CT examination of the head without IV contrast HISTORY: altered mental status COMPARISONS: 06/15/2018 FINDINGS: Stable physiologic calcifications in the basal ganglia bilaterally. No acute air-fluid level visualized in the included air-filled sinuses. Bone windows demonstrate no acute fracture. The brain is without mass, mass effect, hemorrhage, or acute infarct. There is no extra-axial intracranial bleed, brain bleed, or midline shift. The ventricles and sulci are age-appropriate. IMPRESSION: No acute CVA, intracranial bleed, or brain mass This document is electronically signed by Zhou Cash MD., August 20 2018 12:27:57 PM ET
[2018-08-20 12:35] LABS: HCG Qualitative,Urine Negative (Negative)
[2018-08-20 12:54] LABS: Amphetamine Screen,Urine PRESUMPTIVE NEGATIVE; Benzodiazepines Screen,Urine PRESUMPTIVE NEGATIVE; Cannabinoid Screen,Urine PRESUMPTIVE NEGATIVE; Cocaine Screen,Urine PRESUMPTIVE NEGATIVE; Methadone Screen,Urine PRESUMPTIVE NEGATIVE; Opiate Screen,Urine PRESUMPTIVE NEGATIVE
[2018-08-20] MEDS ORDERED: ASPIRIN PR ONE ×2 (13:25→13:55)
[2018-08-20] MEDS ORDERED: ZOFRAN IV PRN (13:25)
[2018-08-20] MEDS ORDERED: PROVENTIL IH PRN (13:25)
[2018-08-20] MEDS ORDERED: TYLENOL PO PRN (13:25)
[2018-08-20] MEDS ORDERED: SODIUM CHLORIDE FLUSH SYRINGE 10 ML IV PRN (13:25)
[2018-08-20] MEDS ORDERED: D50W (25GM) Syringe IV PRN (13:28)
--- NOTE | 2018-08-20 13:29 | History and Physical Report ---
History of Present Illness Chief complaint: She took too much insulin History of present illness: 42 YO Female with DM, Malnutrition presents to ED for evaluation. Pt is lethargic at time of exam and unable to provide detailed history. Pt history provided by who is at bedside during exam and interview. Pt reports that patient took unknown amount of insulin prior to eating lunch, and did not check her glucose level prior to eating her lunch. Pt checked postmeal glucose level, and found blood sugar to be around 300, and subsequently took another unknown dose of insulin. Pt awoke around 0100hrs and took another dose of insulin and then went to sleep. The patient was found unresponsive by her hu sband around 0700hrs. EMS notified, and uopn arrival the patient was found to be in distress and transported to [facility] ED. Pt seen and evaluated in ED and found to have Acute Encephalopathy suspected secondary to hypoglycemia and rebound hyperglycemia suspected secondary to somogyi effect. Pt is confused, but has a positive gag reflex, and is able to protect her airway. Prior admission on 06/15/18 reviewed. Pt admitted to medical floor. All listed medication reconciled at time of admission. Past History Past Medical History: diabetes Past Surgical History: Other (Right leg Fracture) Social history: , lives with family. denies: smoking, alcohol abuse, prescription drug abuse Family history: no significant family history (reviewed) Medications and Allergies Allergies Allergy/AdvReac Type Severity Reaction Status Date / Time No Known Allergies Allergy Unverified 01/21/16 09:19 Home Medications Medication Instructions Recorded Confirmed Last Taken Type Insulin Lispro [HumaLOG VIAL] 0 units SQ AC #1 vial 06/16/18 Unknown Rx Active Meds: Active Medications Acetaminophen (Tylenol) 650 mg PO Q4H PRN PRN Reason: Pain MILD(1-3)/Fever >100.5/STEARNS Albuterol (Proventil) 2.5 mg IH Q3HRT PRN PRN Reason: Shortness Of Breath Dextrose (D50w (25gm) Syringe) 50 ml IV PRN PRN PRN Reason: Hypoglycemia Sodium Chloride (Nacl 0.45% 1000 Ml) 1,000 mls @ 75 mls/hr IV DIRECT ADDI Insulin Human Lispro (Humalog) 0 unit SUB-Q Q6HR ADDI; Protocol Midazolam HCl (Versed) 2.5 mg IV ONCE NR Stop: 08/20/18 23:59 Last Admin: 08/20/18 11:52 Dose: 2.5 mg Documented by: Ondansetron HCl (Zofran) 4 mg IV Q8H PRN PRN Reason: Nausea And Vomiting Sodium Chloride (Sodium Chloride Flush Syringe 10 Ml) 10 ml IV BID ADDI Sodium Chloride (Sodium Chloride Flush Syringe 10 Ml) 10 ml IV PRN PRN PRN Reason: LINE FLUSH Review of Systems ROS unobtainable: due to mental status Exam - Constitutional Vitals: Temp Pulse Resp BP Pulse Ox 97.8 F 81 14 103/73 99 08/20/18 09:59 08/20/18 13:00 08/20/18 13:00 08/20/18 13:00 08/20/18 13:00 General appearance: Present: mild distress, cachectic - EENT Eyes: Present: PERRL ENT: hearing intact, clear oral mucosa - Neck Neck: Present: supple, normal ROM - Respiratory Respiratory effort: normal Respiratory: bilateral: CTA - Cardiovascular Heart Sounds: Present: S1 & S2. Absent: rub, click - Extremities Extremities: pulses symmetrical, No edema Peripheral Pulses: within normal limits - Abdominal General gastrointestinal: Present: soft, non-tender, non-distended, normal bowel sounds Female genitourinary: Present: normal - Integumentary Integumentary: Present: clear, warm, dry - Musculoskeletal Musculoskeletal: gait normal, strength equal bilaterally - Psychiatric Psychiatric: appropriate mood/affect, intact judgment & insight - Neurologic Neurologic: CNII-XII intact, no focal deficits, moves all extremities, no gait normal, other (lethaargic, resting comfortable in bed, ) Results - Labs CBC & Chem 7: 08/20/18 10:51 08/20/18 10:51 Labs: Abnormal lab results 08/20/18 08/20/18 08/20/18 Range/Units 10:09 10:51 10:51 RBC 3.38 L (3.65-5.03) M/mm3 MCV 100 H (79-97) fl MCH 34 H (28-32) pg Plt Count 114 L (140-440) K/mm3 Lymph # 0.9 L (1.2-5.4) K/mm3 Seg Neutrophils % 76.7 H (40.0-70.0) % Potassium 3.5 L (3.6-5.0) mmol/L Chloride 107.5 H (98-107) mmol/L Carbon Dioxide 21 L (22-30) mmol/L BUN 20 H (7-17) mg/dL Creatinine 0.3 L (0.7-1.2) mg/dL Glucose 193 H (65-100) mg/dL POC Glucose 165 H (70-105) Calcium 7.8 L (8.4-10.2) mg/dL AST 167 H (5-40) units/L ALT 101 H (7-56) units/L Alkaline Phosphatase 155 H (35-129) units/L Albumin 3.0 L (3.9-5) g/dL TSH (0.270-4.200) mlU/mL 08/20/18 Range/Units 10:51 RBC (3.65-5.03) M/mm3 MCV (79-97) fl MCH (28-32) pg Plt Count (140-440) K/mm3 Lymph # (1.2-5.4) K/mm3 Seg Neutrophils % (40.0-70.0) % Potassium (3.6-5.0) mmol/L Chloride (98-107) mmol/L Carbon Dioxide (22-30) mmol/L BUN (7-17) mg/dL Creatinine (0.7-1.2) mg/dL Glucose (65-100) mg/dL POC Glucose (70-105) Calcium (8.4-10.2) mg/dL AST (5-40) units/L ALT (7-56) units/L Alkaline Phosphatase (35-129) units/L Albumin (3.9-5) g/dL TSH 5.770 H (0.270-4.200) mlU/mL Assessment and Plan - Patient Problems (1) Acute encephalopathy Current Visit: No Status: Acute Plan to address problem: CT head, neuro checks, supprtive care. Suspected secondary to hypoglycemia s/p unintentional insulin overdose. (2) Hypoglycemia Current Visit: No Status: Acute Plan to address problem: Accu check, monitor serum glucose. (3) Diabetes Current Visit: Yes Status: Acute Plan to address problem: ADA diet, insulin, Accu check, diet when awake and alert only (4) DVT prophylaxis Current Visit: No Status: Acute Plan to address problem: SCD to BLE while in bed, Prophylactic lovenox.
[2018-08-20 13:31] LABS: Bilirubin,Urine NEG (Negative); Blood,Urine NEG (Negative); Color,Urine Straw (Yellow); Mucus,Urine FEW /HPF; Protein,Urine <15 mg/dL mg/dL (Negative); RBC,Urine < 1.0 /HPF (0.0-6.0); Urobilinogen,Urine < 2.0 mg/dL (<2.0)
[2018-08-20 13:40] LABS: WBC,Urine < 1.0 /HPF (0.0-6.0)
[2018-08-20] MEDS: NACL 0.45% 1000 ML 1,000 ML IV SCH (14:27)
[2018-08-20 16:02] LABS: Hepatitis B Surface Antigen Non-Reactive (Negative); Hepatitis C Virus Antibody Reactive (NonReactive)
[2018-08-20] MEDS: HumaLOG SUB-Q SCH (17:37)
[2018-08-20] MEDS: LOVENOX SUB-Q SCH (22:52)
[2018-08-20] MEDS: SODIUM CHLORIDE FLUSH SYRINGE 10 ML IV SCH (22:53)
[2018-08-21] MEDS: HumaLOG SUB-Q SCH ×4 (00:26→18:15)
[2018-08-21] MEDS: NACL 0.45% 1000 ML 1,000 ML IV SCH (05:04)
--- NOTE | 2018-08-21 09:09 | Progress Note ---
Assessment and Plan Assessment and plan: 42-year-old woman with history of type 1 diabetes. Per her . She took a second dose of insulin at 1 AM because her sugars were high, after which her found her to be unresponsive in the morning. She was admitted for hypoglycemic encephalopathy Past medical history; type 1 diabetes, chronic hypokalemia CT head; no acute findings Labs show mild transaminitis, hepatitis C antibody positive, UDS negative Diagnoses Hypoglycemia Acute metabolic encephalopathy Transaminitis Hepatitis C, she was diagnosed many years ago in [facility] [place] type 1 diabetes hypokalemia Plan Obtain hepatitis C viral load and genotype, we need outpatient ID and hepatology follow-up Optimizing insulins was counseled about lifestyle modification, diet and insulin use, time spent 30 minutes -continue k replacement DVT prophylaxis, ambulation History Interval history: Review of systems Constitutional: No fevers, no malaise, no joint pains CVS: No chest pain, no orthopnea, no dyspnea on exertion, no pedal edema GI: No abdominal pain, no diarrhea, no vomiting, no constipation Respiratory: No shortness of breath, no wheezing, no coughing Hospitalist Physical - Physical exam Narrative exam: General.: Appears well, no distress, nontoxic HEENT: Moist mucous membranes, extraocular muscles intact, no lymphadenopathy Neck: supple Cardiac: S1-S2 heard Lungs: clear to auscultation bilaterally Abdomen: soft , nontender, nondistended, bowel sounds positive Extremities: no edema clubbing or cyanosis Skin: no rash or lesions Neurologic: no gross focal deficits Psych: calm, and cooperative - Constitutional Vitals: Temp Pulse Resp BP Pulse Ox 98.0 F 84 16 104/68 99 08/21/18 04:43 08/21/18 04:43 08/21/18 04:43 08/21/18 04:43 08/21/18 04:43 General appearance: Present: mild distress, cachectic Results - Labs CBC & Chem 7: 08/20/18 10:51 08/20/18 10:51 Labs: Laboratory Last Values WBC 4.6 K/mm3 (4.5-11.0) 08/20/18 10:51 RBC 3.38 M/mm3 (3.65-5.03) L 08/20/18 10:51 Hgb 11.5 gm/dl (10.1-14.3) 08/20/18 10:51 Hct 33.6 % (30.3-42.9) 08/20/18 10:51 MCV 100 fl (79-97) H 08/20/18 10:51 MCH 34 pg (28-32) H 08/20/18 10:51 MCHC 34 % (30-34) 08/20/18 10:51 RDW 13.9 % (13.2-15.2) 08/20/18 10:51 Plt Count 114 K/mm3 (140-440) L 08/20/18 10:51 Lymph % (Auto) 19.3 % (13.4-35.0) 08/20/18 10:51 Bond % (Auto) 3.6 % (0.0-7.3) 08/20/18 10:51 Eos % (Auto) 0.3 % (0.0-4.3) 08/20/18 10:51 Baso % (Auto) 0.1 % (0.0-1.8) 08/20/18 10:51 Lymph # 0.9 K/mm3 (1.2-5.4) L 08/20/18 10:51 Bond # 0.2 K/mm3 (0.0-0.8) 08/20/18 10:51 Eos # 0.0 K/mm3 (0.0-0.4) 08/20/18 10:51 Baso # 0.0 K/mm3 (0.0-0.1) 08/20/18 10:51 Seg Neutrophils % 76.7 % (40.0-70.0) H 08/20/18 10:51 Seg Neutrophils # 3.5 K/mm3 (1.8-7.7) 08/20/18 10:51 PT 14.4 Sec. (12.2-14.9) 08/20/18 10:51 INR 1.05 (0.87-1.13) 08/20/18 10:51 APTT 30.2 Sec. (24.2-36.6) 08/20/18 10:51 Sodium 137 mmol/L (137-145) 08/20/18 10:51 Potassium 3.5 mmol/L (3.6-5.0) L 08/20/18 10:51 Chloride 107.5 mmol/L (98-107) H 08/20/18 10:51 Carbon Dioxide 21 mmol/L (22-30) L 08/20/18 10:51 Anion Gap 12 mmol/L 08/20/18 10:51 BUN 20 mg/dL (7-17) H 08/20/18 10:51 Creatinine 0.3 mg/dL (0.7-1.2) L 08/20/18 10:51 Estimated GFR > 60 ml/min 08/20/18 10:51 BUN/Creatinine Ratio 67 % 08/20/18 10:51 Glucose 193 mg/dL (65-100) H 08/20/18 10:51 POC Glucose 426 (70-105) H 08/20/18 23:29 Calcium 7.8 mg/dL (8.4-10.2) L 08/20/18 10:51 Total Bilirubin 0.60 mg/dL (0.1-1.2) 08/20/18 10:51 AST 167 units/L (5-40) H 08/20/18 10:51 ALT 101 units/L (7-56) H 08/20/18 10:51 Alkaline Phosphatase 155 units/L (35-129) H 08/20/18 10:51 Ammonia 56.0 umol/L (25-60) 08/20/18 10:51 Total Creatine Kinase 78 units/L (30-135) 08/20/18 10:51 CK-MB (CK-2) 1.6 ng/mL (0.0-4.0) 08/20/18 10:51 CK-MB (CK-2) Rel Index 2.0 (0-4) 08/20/18 10:51 Troponin T < 0.010 ng/mL (0.00-0.029) 08/20/18 10:51 Total Protein 6.3 g/dL (6.3-8.2) 08/20/18 10:51 Albumin 3.0 g/dL (3.9-5) L 08/20/18 10:51 Albumin/Globulin Ratio 0.9 % 08/20/18 10:51 TSH 5.770 mlU/mL (0.270-4.200) H 08/20/18 10:51 Free T4 0.89 ng/dL (0.76-1.46) 08/20/18 10:51 Urine Color Straw (Yellow) 08/20/18 13:22 Urine Turbidity Clear (Clear) 08/20/18 13:22 Urine pH 8.0 (5.0-7.0) H 08/20/18 13:22 Ur Specific [place] 1.008 (1.003-1.030) 08/20/18 13:22 Urine Protein <15 mg/dl mg/dL (Negative) 08/20/18 13:22 Urine Glucose (UA) >=500 mg/dL (Negative) 08/20/18 13:22 Urine Ketones Neg mg/dL (Negative) 08/20/18 13:22 Urine Blood Neg (Negative) 08/20/18 13:22 Urine Nitrite Neg (Negative) 08/20/18 13:22 Urine Bilirubin Neg (Negative) 08/20/18 13:22 Urine Urobilinogen < 2.0 mg/dL (<2.0) 08/20/18 13:22 Ur Leukocyte Esterase Neg (Negative) 08/20/18 13:22 Urine WBC (Auto) < 1.0 /HPF (0.0-6.0) 08/20/18 13:22 Urine RBC (Auto) < 1.0 /HPF (0.0-6.0) 08/20/18 13:22 U Epithel Cells (Auto) < 1.0 /HPF (0-13.0) 08/20/18 13:22 Urine Mucus Few /HPF 08/20/18 13:22 Urine HCG, Qual Negative (Negative) 08/20/18 11:21 Urine Opiates Screen Presumptive negative 08/20/18 11:21 Urine Methadone Screen Presumptive negative 08/20/18 11:21 Ur Barbiturates Screen Presumptive negative 08/20/18 11:21 Ur Phencyclidine Scrn Presumptive negative 08/20/18 11:21 Ur Amphetamines Screen Presumptive negative 08/20/18 11:21 U Benzodiazepines Scrn Presumptive negative 08/20/18 11:21 Urine Cocaine Screen Presumptive negative 08/20/18 11:21 U Marijuana (THC) Screen Presumptive negative 08/20/18 11:21 Drugs of Abuse Note Disclamer 08/20/18 11:21 Plasma/Serum Alcohol < 0.01 % (0-0.07) 08/20/18 10:51 Hepatitis A IgM Ab Non-reactive (NonReactive) 08/20/18 14:54 Hep Bs Antigen Non-reactive (Negative) 08/20/18 14:54 Hep B Core IgM Ab Non-reactive (NonReactive) 08/20/18 14:54 Hepatitis C Antibody Reactive (NonReactive) A 08/20/18 14:54 Active Medications - Current Medications Current Medications: Generic Name Dose Route Start Last Admin Trade Name Freq PRN Reason Stop Dose Admin Acetaminophen 650 mg 08/20/18 13:25 Tylenol PO Q4H PRN Pain MILD(1-3)/Fever >100.5/STEARNS Albuterol 2.5 mg 08/20/18 13:25 Proventil IH Q3HRT PRN Shortness Of Breath Dextrose 50 ml 08/20/18 13:28 D50w (25gm) Syringe IV PRN PRN Hypoglycemia Enoxaparin Sodium 40 mg 08/20/18 22:00 08/20/18 22:52 Lovenox SUB-Q 40 mg QDAY@2200 ADDI Administration Insulin Human Lispro 0 unit 08/20/18 18:00 08/21/18 07:38 Humalog SUB-Q 2 unit Q6HR ADDI Administration Protocol Ondansetron HCl 4 mg 08/20/18 13:25 Zofran IV Q8H PRN Nausea And Vomiting Sodium Chloride 10 ml 08/20/18 22:00 08/20/18 22:53 Sodium Chloride Flush Syringe 10 Ml IV 10 ml BID ADDI Administration Sodium Chloride 10 ml 08/20/18 13:25 Sodium Chloride Flush Syringe 10 Ml IV PRN PRN LINE FLUSH
--- NOTE | 2018-08-21 10:50 | Cat Scan Report ---
PROCEDURE: CT HEAD/BRAIN WO CON TECHNIQUE: Axial images obtained without intravenous contrast HISTORY: confusion COMPARISONS: Head CT August 20, 2018 FINDINGS: No acute extra-axial fluid collection. No midline shift. No cisternal effacement. Ventricular system unremarkable. Basal ganglia calcifications are stable. Kate-white interface maintained. No acute hemo rrhage. Paranasal sinuses demonstrate no air-fluid level. Mastoid air cells normal aeration. Calvariu m no acute defect. IMPRESSION: . No acute intracranial process.. This document is electronically signed by Bentley Hill MD., August 21 2018 10:47:57 AM ET
[2018-08-21] MEDS: SODIUM CHLORIDE FLUSH SYRINGE 10 ML IV SCH ×2 (14:59→22:20)
[2018-08-21] MEDS: LOVENOX SUB-Q SCH (22:20)
[2018-08-22] MEDS: HumaLOG SUB-Q SCH ×4 (00:44→17:39)
[2018-08-22] MEDS: SODIUM CHLORIDE FLUSH SYRINGE 10 ML IV SCH (10:12)
--- NOTE | 2018-08-22 12:42 | Discharge Summary ---
Providers - Providers Date of Admission: 08/20/18 13:25 Attending physician: TONY BLISS MD Hospitalization Condition: Good Hospital course: 42-year-old woman with history of type 1 diabetes. Per her . She took a second dose of insulin at 1 AM because her sugars were high, after which her found her to be unresponsive in the morning. She was admitted for hypoglycemic encephalopathy Past medical history; type 1 diabetes, chronic hypokalemia CT head; no acute findings Labs show mild transaminitis, hepatitis C antibody positive, UDS negative Diagnoses Hypoglycemia Acute metabolic encephalopathy Transaminitis Hepatitis C, she was diagnosed many years ago in [facility] [place] type 1 diabetes hypokalemia Plan The patient reports having a history of hepatitis C in [place]. Does not know much else about it. Patient was referred to ID and hepatology as an outpatient. The patient was counseled on insulin use. She was advised to never take insulin and middle of the night. She is advised to continue taking her insulin 3 times a day with the food in front of her. was counseled about lifestyle modification, diet and insulin use, time spent 30 minutes -csp k replacement DVT prophylaxis, ambulation Disposition: DC-01 TO HOME OR SELFCARE Time spent for discharge: 33 mins Core Measure Documentation - Palliative Care Palliative Care/ Comfort Measures: Not Applicable - Core Measures Any of the following diagnoses?: none Exam - Constitutional Vitals: Temp Pulse Resp BP Pulse Ox 98.1 F 74 19 128/83 99 08/22/18 12:06 08/22/18 12:07 08/22/18 12:06 08/22/18 12:06 08/22/18 12:07 General appearance: Present: no acute distress, well-nourished - EENT Eyes: Present: PERRL ENT: hearing intact, clear oral mucosa - Neck Neck: Present: supple, normal ROM - Respiratory Respiratory effort: normal Respiratory: bilateral: CTA - Cardiovascular Heart Sounds: Present: S1 & S2. Absent: rub, click - Extremities Extremities: pulses symmetrical, No edema Peripheral Pulses: within normal limits - Abdominal General gastrointestinal: Present: soft, non-tender, non-distended, normal bowel sounds Female genitourinary: Present: normal - Integumentary Integumentary: Present: clear, warm, dry - Musculoskeletal Musculoskeletal: gait normal, strength equal bilaterally - Psychiatric Psychiatric: appropriate mood/affect, intact judgment & insight - Neurologic Neurologic: CNII-XII intact, moves all extremities Plan Follow up with: FRANCHESCA LOPEZ [Other] - 7 Days MANNIE GALINDO MD [Staff Physician] - 7 Days HECTOR SCHWARTZ MD [Staff Physician] - 7 Days
[2018-08-22 19:07] VITALS: BP 127/72
== END 2018-08-22 20:25 | disposition home or self-care (01) | DRG 637 ==
LOC: ED 09:41 → OBSVTOIN 13:25 → 3A 13:25
PROVIDERS: ADMIT Internal Medicine; ATTEND Internal Medicine
DX: E10.649 Type 1 diabetes mellitus with hypoglycemia without coma (principal); G93.41 Metabolic encephalopathy; B19.20 Unspecified viral hepatitis C without hepatic coma; E87.6 Hypokalemia; R74.0 Nonspecific elevation of levels of transaminase and lactic acid dehydrogenase [LDH]; Z79.4 Long term (current) use of insulin; Z68.22 Body mass index [BMI] 22.0-22.9, adult
CPT/HCPCS: 36415; 70450; 80053; 80074; 80307; 80320; 81001; 81025; 82140; 82550; 82553; 82962; 84439; 84443; 84484; 85025; 85610; 85730; 87517; 87902; 93005; 93010; 96372; 96374; G0378; G0480; J1650; J1815; J2250; J2310; J7030

== ENCOUNTER 2018-11-18 08:43 | Emergency (ER) | payer OTHER ==
[2018-11-18 09:28] LABS: Basophils % (Auto) 0.2 % (0.0-1.8); Hematocrit 33.8 % (30.3-42.9); Hemoglobin 11.5 gm/dl (10.1-14.3); Lymphocytes # (Auto) 0.8 K/mm3 (1.2-5.4); Lymphocytes % (Auto) 18.9 % (13.4-35.0); Mean Corpuscular HGB Conc 34 % (30-34); Mean Corpuscular Volume 98 fl (79-97); Monocytes # (Auto) 0.2 K/mm3 (0.0-0.8); Monocytes % (Auto) 4.1 % (0.0-7.3); Platelet Count 109 K/mm3 (140-440); Red Blood Count 3.45 M/mm3 (3.65-5.03); Red Cell Distribution Width 13.9 % (13.2-15.2)
[2018-11-18 09:32] LABS: INR 1.27 (0.87-1.13)
[2018-11-18 09:33] LABS: Partial Thromboplastin Time 28.1 Sec. (24.2-36.6)
[2018-11-18 09:48] LABS: Alanine Aminotransferase 81 units/L (7-56); Albumin 2.9 g/dL (3.9-5); BUN/Creatinine Ratio 38; Blood Urea Nitrogen 19 mg/dL (7-17); Hemolysis Index 70
[2018-11-18 09:58] LABS: Bilirubin,Urine NEG (Negative); Blood,Urine NEG (Negative); Color,Urine Straw (Yellow); Protein,Urine <15 mg/dL mg/dL (Negative); Urobilinogen,Urine < 2.0 mg/dL (<2.0); WBC,Urine < 1.0 /HPF (0.0-6.0)
[2018-11-18] MEDS ORDERED: HumuLIN R IV ONE (10:34)
[2018-11-18] MEDS ORDERED: NACL 0.9% 1000 ML 1,000 ML IV ONE ×3 (10:34→13:38)
[2018-11-18] MEDS ORDERED: ZOFRAN IV ONE (10:41)
[2018-11-18] MEDS ORDERED: LANTUS SUB-Q ONE (11:27)
--- NOTE | 2018-11-18 11:29 | Emergency Department Report ---
ED General Adult HPI - General Chief complaint: Altered Mental Status Stated complaint: AMS Time Seen by Provider: 11/18/18 10:11 Source: EMS Mode of arrival: Stretcher Limitations: No Limitations - History of Present Illness Initial comments: Patient is a 43-year-old female past medical history of diabetes who presents with confusion and nausea and vomiting. Patient states history is limited due to confusion. Per EMS patient was brought in screaming saying that she didn't want to go to the hospital. Patient states that she was just nauseous. Patient denies having any pain. - Related Data Previous Rx's Medication Instructions Recorded Last Taken Type Insulin Lispro [HumaLOG VIAL] 0 units SQ AC #1 vial 06/16/18 08/19/18 Rx Allergies Allergy/AdvReac Type Severity Reaction Status Date / Time No Known Allergies Allergy Unverified 01/21/16 09:19 ED Review of Systems ROS: Stated complaint: AMS Other details as noted in HPI Comment: Unobtainable due to pts medical conditions (confusion) ED Past Medical Hx - Past Medical History Hx Hypertension: No Hx Congestive Heart Failure: No Hx Diabetes: Yes Hx Deep Vein Thrombosis: No Hx Renal Disease: No Hx Sickle Cell Disease: No Hx Seizures: No Hx Asthma: No Hx COPD: No Hx HIV: No - Surgical History Additional Surgical History: right leg fracture repair - Social History Smoking Status: Never Smoker - Medications Home Medications: Home Medications Medication Instructions Recorded Confirmed Last Taken Type Insulin Lispro [HumaLOG VIAL] 0 units SQ AC #1 vial 06/16/18 08/20/18 08/19/18 Rx ED Physical Exam - General Limitations: No Limitations General appearance: alert, in no apparent distress - Head Head exam: Present: atraumatic, normocephalic - Eye Eye exam: Present: normal appearance - ENT ENT exam: Present: mucous membranes moist - Neck Neck exam: Present: normal inspection - Respiratory Respiratory exam: Present: normal lung sounds bilaterally. Absent: respiratory distress - Cardiovascular Cardiovascular Exam: Present: regular rate, normal rhythm. Absent: systolic murmur, diastolic murmur, rubs, gallop - GI/Abdominal GI/Abdominal exam: Present: soft, normal bowel sounds - Extremities Exam Extremities exam: Present: normal inspection - Back Exam Back exam: Present: normal inspection - Neurological Exam Neurological exam: Present: alert, oriented X3 - Psychiatric Psychiatric exam: Present: normal affect, normal mood - Skin Skin exam: Present: warm, dry, intact, normal color. Absent: rash ED Course Vital Signs 11/18/18 11/18/18 11/18/18 08:54 09:30 09:54 Temperature 98.7 F Pulse Rate 126 H 88 Respiratory 17 17 17 Rate Blood Pressure 156/83 112/66 [Right] O2 Sat by Pulse 100 99 Oximetry 11/18/18 11/18/18 11/18/18 12:17 13:10 16:31 Temperature Pulse Rate 65 81 69 Respiratory 17 17 17 Rate Blood Pressure 104/59 120/77 120/69 [Right] O2 Sat by Pulse 100 100 100 Oximetry ED Medical Decision Making - Lab Data Result diagrams: 11/18/18 09:08 11/18/18 09:08 Lab Results 11/18/18 11/18/18 11/18/18 Range/Units 09:08 09:08 09:08 WBC 4.0 L (4.5-11.0) K/mm3 RBC 3.45 L (3.65-5.03) M/mm3 Hgb 11.5 (10.1-14.3) gm/dl Hct 33.8 (30.3-42.9) % MCV 98 H (79-97) fl MCH 33 H (28-32) pg MCHC 34 (30-34) % RDW 13.9 (13.2-15.2) % Plt Count 109 L (140-440) K/mm3 Lymph % (Auto) 18.9 (13.4-35.0) % [place] % (Auto) 4.1 (0.0-7.3) % Eos % (Auto) 0.0 (0.0-4.3) % Baso % (Auto) 0.2 (0.0-1.8) % Lymph # 0.8 L (1.2-5.4) K/mm3 [place] # 0.2 (0.0-0.8) K/mm3 Eos # 0.0 (0.0-0.4) K/mm3 Baso # 0.0 (0.0-0.1) K/mm3 Seg Neutrophils % 76.8 H (40.0-70.0) % Seg Neutrophils # 3.1 (1.8-7.7) K/mm3 PT (12.2-14.9) Sec. INR (0.87-1.13) APTT (24.2-36.6) Sec. Sodium 135 L (137-145) mmol/L Potassium 4.0 (3.6-5.0) mmol/L Chloride 103.8 (98-107) mmol/L Carbon Dioxide 16 L (22-30) mmol/L Anion Gap 19 mmol/L BUN 19 H (7-17) mg/dL Creatinine 0.5 L (0.7-1.2) mg/dL Estimated GFR > 60 ml/min BUN/Creatinine Ratio 38 % Glucose 299 H (65-100) mg/dL POC Glucose (70-105) Lactic Acid 5.30 H* (0.7-2.0) mmol/L Calcium 8.0 L (8.4-10.2) mg/dL Total Bilirubin 0.70 (0.1-1.2) mg/dL AST 101 H (5-40) units/L ALT 81 H (7-56) units/L Alkaline Phosphatase 180 H (35-129) units/L Troponin T < 0.010 (0.00-0.029) ng/mL Total Protein 6.3 (6.3-8.2) g/dL Albumin 2.9 L (3.9-5) g/dL Albumin/Globulin Ratio 0.9 % Urine Color (Yellow) Urine Turbidity (Clear) Urine pH (5.0-7.0) Ur Specific [place] (1.003-1.030) Urine Protein (Negative) mg/dL Urine Glucose (UA) (Negative) mg/dL Urine Ketones (Negative) mg/dL Urine Blood (Negative) Urine Nitrite (Negative) Urine Bilirubin (Negative) Urine Urobilinogen (<2.0) mg/dL Ur Leukocyte Esterase (Negative) Urine WBC (Auto) (0.0-6.0) /HPF Urine RBC (Auto) (0.0-6.0) /HPF U Epithel Cells (Auto) (0-13.0) /HPF Salicylates (2.8-20.0) mg/dL Acetaminophen (10.0-30.0) ug/mL 11/18/18 11/18/18 11/18/18 Range/Units 09:08 09:08 09:08 WBC (4.5-11.0) K/mm3 RBC (3.65-5.03) M/mm3 Hgb (10.1-14.3) gm/dl Hct (30.3-42.9) % MCV (79-97) fl MCH (28-32) pg MCHC (30-34) % RDW (13.2-15.2) % Plt Count (140-440) K/mm3 Lymph % (Auto) (13.4-35.0) % [place] % (Auto) (0.0-7.3) % Eos % (Auto) (0.0-4.3) % Baso % (Auto) (0.0-1.8) % Lymph # (1.2-5.4) K/mm3 [place] # (0.0-0.8) K/mm3 Eos # (0.0-0.4) K/mm3 Baso # (0.0-0.1) K/mm3 Seg Neutrophils % (40.0-70.0) % Seg Neutrophils # (1.8-7.7) K/mm3 PT 15.6 H (12.2-14.9) Sec. INR 1.27 H (0.87-1.13) APTT 28.1 (24.2-36.6) Sec. Sodium (137-145) mmol/L Potassium (3.6-5.0) mmol/L Chloride (98-107) mmol/L Carbon Dioxide (22-30) mmol/L Anion Gap mmol/L BUN (7-17) mg/dL Creatinine (0.7-1.2) mg/dL Estimated GFR ml/min BUN/Creatinine Ratio % Glucose (65-100) mg/dL POC Glucose (70-105) Lactic Acid (0.7-2.0) mmol/L Calcium (8.4-10.2) mg/dL Total Bilirubin (0.1-1.2) mg/dL AST (5-40) units/L ALT (7-56) units/L Alkaline Phosphatase (35-129) units/L Troponin T (0.00-0.029) ng/mL Total Protein (6.3-8.2) g/dL Albumin (3.9-5) g/dL Albumin/Globulin Ratio % Urine Color (Yellow) Urine Turbidity (Clear) Urine pH (5.0-7.0) Ur Specific [place] (1.003-1.030) Urine Protein (Negative) mg/dL Urine Glucose (UA) (Negative) mg/dL Urine Ketones (Negative) mg/dL Urine Blood (Negative) Urine Nitrite (Negative) Urine Bilirubin (Negative) Urine Urobilinogen (<2.0) mg/dL Ur Leukocyte Esterase (Negative) Urine WBC (Auto) (0.0-6.0) /HPF Urine RBC (Auto) (0.0-6.0) /HPF U Epithel Cells (Auto) (0-13.0) /HPF Salicylates < 0.3 L (2.8-20.0) mg/dL Acetaminophen < 5.0 L (10.0-30.0) ug/mL 11/18/18 11/18/18 11/18/18 Range/Units 09:10 09:41 10:01 WBC (4.5-11.0) K/mm3 RBC (3.65-5.03) M/mm3 Hgb (10.1-14.3) gm/dl Hct (30.3-42.9) % MCV (79-97) fl MCH (28-32) pg MCHC (30-34) % RDW (13.2-15.2) % Plt Count (140-440) K/mm3 Lymph % (Auto) (13.4-35.0) % [place] % (Auto) (0.0-7.3) % Eos % (Auto) (0.0-4.3) % Baso % (Auto) (0.0-1.8) % Lymph # (1.2-5.4) K/mm3 [place] # (0.0-0.8) K/mm3 Eos # (0.0-0.4) K/mm3 Baso # (0.0-0.1) K/mm3 Seg Neutrophils % (40.0-70.0) % Seg Neutrophils # (1.8-7.7) K/mm3 PT (12.2-14.9) Sec. INR (0.87-1.13) APTT (24.2-36.6) Sec. Sodium (137-145) mmol/L Potassium (3.6-5.0) mmol/L Chloride (98-107) mmol/L Carbon Dioxide (22-30) mmol/L Anion Gap mmol/L BUN (7-17) mg/dL Creatinine (0.7-1.2) mg/dL Estimated GFR ml/min BUN/Creatinine Ratio % Glucose (65-100) mg/dL POC Glucose 369 H (70-105) Lactic Acid 3.60 H* (0.7-2.0) mmol/L Calcium (8.4-10.2) mg/dL Total Bilirubin (0.1-1.2) mg/dL AST (5-40) units/L ALT (7-56) units/L Alkaline Phosphatase (35-129) units/L Troponin T (0.00-0.029) ng/mL Total Protein (6.3-8.2) g/dL Albumin (3.9-5) g/dL Albumin/Globulin Ratio % Urine Color Straw (Yellow) Urine Turbidity Clear (Clear) Urine pH 7.0 (5.0-7.0) Ur Specific [place] 1.011 (1.003-1.030) Urine Protein <15 mg/dl (Negative) mg/dL Urine Glucose (UA) 150 (Negative) mg/dL Urine Ketones Neg (Negative) mg/dL Urine Blood Neg (Negative) Urine Nitrite Neg (Negative) Urine Bilirubin Neg (Negative) Urine Urobilinogen < 2.0 (<2.0) mg/dL Ur Leukocyte Esterase Neg (Negative) Urine WBC (Auto) < 1.0 (0.0-6.0) /HPF Urine RBC (Auto) 1.0 (0.0-6.0) /HPF U Epithel Cells (Auto) 1.0 (0-13.0) /HPF Salicylates (2.8-20.0) mg/dL Acetaminophen (10.0-30.0) ug/mL 11/18/18 11/18/18 Range/Units 10:51 11:05 WBC (4.5-11.0) K/mm3 RBC (3.65-5.03) M/mm3 Hgb (10.1-14.3) gm/dl Hct (30.3-42.9) % MCV (79-97) fl MCH (28-32) pg MCHC (30-34) % RDW (13.2-15.2) % Plt Count (140-440) K/mm3 Lymph % (Auto) (13.4-35.0) % [place] % (Auto) (0.0-7.3) % Eos % (Auto) (0.0-4.3) % Baso % (Auto) (0.0-1.8) % Lymph # (1.2-5.4) K/mm3 [place] # (0.0-0.8) K/mm3 Eos # (0.0-0.4) K/mm3 Baso # (0.0-0.1) K/mm3 Seg Neutrophils % (40.0-70.0) % Seg Neutrophils # (1.8-7.7) K/mm3 PT (12.2-14.9) Sec. INR (0.87-1.13) APTT (24.2-36.6) Sec. Sodium (137-145) mmol/L Potassium (3.6-5.0) mmol/L Chloride (98-107) mmol/L Carbon Dioxide (22-30) mmol/L Anion Gap mmol/L BUN (7-17) mg/dL Creatinine (0.7-1.2) mg/dL Estimated GFR ml/min BUN/Creatinine Ratio % Glucose (65-100) mg/dL POC Glucose 275 H (70-105) Lactic Acid 2.90 H* (0.7-2.0) mmol/L Calcium (8.4-10.2) mg/dL Total Bilirubin (0.1-1.2) mg/dL AST (5-40) units/L ALT (7-56) units/L Alkaline Phosphatase (35-129) units/L Troponin T (0.00-0.029) ng/mL Total Protein (6.3-8.2) g/dL Albumin (3.9-5) g/dL Albumin/Globulin Ratio % Urine Color (Yellow) Urine Turbidity (Clear) Urine pH (5.0-7.0) Ur Specific [place] (1.003-1.030) Urine Protein (Negative) mg/dL Urine Glucose (UA) (Negative) mg/dL Urine Ketones (Negative) mg/dL Urine Blood (Negative) Urine Nitrite (Negative) Urine Bilirubin (Negative) Urine Urobilinogen (<2.0) mg/dL Ur Leukocyte Esterase (Negative) Urine WBC (Auto) (0.0-6.0) /HPF Urine RBC (Auto) (0.0-6.0) /HPF U Epithel Cells (Auto) (0-13.0) /HPF Salicylates (2.8-20.0) mg/dL Acetaminophen (10.0-30.0) ug/mL - EKG Data -: EKG Interpreted by Me - EKG Data 11/18/18 11:37 EKG shows sinus tachycardia rate [address] segment elevation or T-wave inversion low voltage in the extremity leads impression sinus tachycardia - Radiology Data Radiology results: report reviewed, image reviewed CT head: Shows no acute intracranial process Chest x-ray: Shows no acute cardiopulmonary disease - Medical Decision Making Chief medical diagnosis: Diabetic ketoacidosis Differential diagnosis: Dehydration, pneumonia, subdural hemorrhage I will get CT scan of head chest x-ray IV fluids and subcutaneous insulin CBC BMP and lactic acid. Patient is feeling better and is more alert and is not encephalopathic I will send patient home as she is able to give me why she will take her insulin and she has had a similar presentation before in August which resolved. Additional verbal discharge instructions were given. Critical Care Time: Yes Critical care time in (mins) excluding proc time.: 60 Critical care attestation.: If time is entered above; I have spent that time in minutes in the direct care of this critically ill patient, excluding procedure time. Time spent with patient at bedside 30 minutes Time spent reviewing patient's laboratory findings 20 minutes Time spent reviewing patient's history 10 minutes ED Disposition Clinical Impression: Lactic acid acidosis, Diabetes mellitus, insulin dependent (IDDM), controlled, Encephalopathy Altered mental state Qualifiers: Altered mental status type: unspecified Qualified Code(s): R41.82 - Altered mental status, unspecified Disposition: DC-01 TO HOME OR SELFCARE Is pt being admited?: No Does the pt Need Aspirin: No Condition: Stable Instructions: Diabetes Mellitus Type 2 in Adults (ED) Referrals: FRANCHES[facility] LOPEZ [Other] - 3-5 Days
--- NOTE | 2018-11-18 12:44 | Cat Scan Report ---
CT head/brain wo con INDICATION: confusion. 43-year-old male TECHNIQUE: Routine CT head without contrast. All CT scans at this location are performed using CT dos e reduction for ALARA by means of automated exposure control. COMPARISON: None. FINDINGS: BRAIN / INTRACRANIAL CONTENTS: No acute hemorrhage, mass effect, midline shift, hydrocephalus, or acu te, large territorial infarct. No chronic infarct or focal atrophy. Normal brain volume and ventricul ar/sulcal size for age. No significant white matter abnormality. Calcification seen in the globus pallidus regions bilaterally, as well as the dentate nuclei - Fahr's disease might be a consideration, which should be of no clinical significance. CRANIOCERVICAL JUNCTION: No significant abnormality. ORBITS: No significant abnormality of visualized orbits. SINUSES / MASTOIDS: Minimal mucosal thickening seen in the ethmoids. Desiccated secretions noted on t he right sphenoid sinus. ADDITIONAL FINDINGS: None. IMPRESSION: 1. No focal mass, hemorrhage, hydrocephalus, or acute, large territorial infarct. Signer Name: Asher Hall MD, III Signed: 11/18/2018 12:39 PM Workstation Name: [id number]
--- NOTE | 2018-11-18 13:06 | XRay Report ---
CHEST 1 VIEW INDICATION: Nausea and vomiting, altered mental status. COMPARISON: FINDINGS: Support devices: None. Heart: Within normal limits. Lungs/Pleura: No acute air space or interstitial disease. Additional findings: None. IMPRESSION: 1. No acute findings. Signer Name: Jhonny Dowd Jr, MD Signed: 11/18/2018 1:01 PM Workstation Name: [id number]
[2018-11-18 18:27] VITALS: BP 123/69
== END 2018-11-18 18:26 | disposition home or self-care (01) ==
LOC: ED 08:43
DX: G93.40 Encephalopathy, unspecified (principal); E87.2 Acidosis; R11.2 Nausea with vomiting, unspecified; E11.9 Type 2 diabetes mellitus without complications; Z98.890 Other specified postprocedural states; Z79.4 Long term (current) use of insulin
CPT/HCPCS: 36415; 70450; 71045; 80053; 81001; 82140; 82962; 84484; 85025; 85610; 85730; 93005; 93010; 96361; 96372; 96374; 99291; G0480; J2405; J7030; 80320; J1815

== ENCOUNTER 2018-12-15 22:05 | Inpatient (IN) | payer OTHER ==
--- NOTE | 2018-12-15 22:24 | Emergency Department Report ---
Blank Doc - Documentation Documentation: This is a 43-year-old female that presents with body aches and bilateral lower leg swelling. Also stated has some chest pain and SOB. This initial assessment/diagnostic orders/clinical plan/treatment(s) is/are subject to change based on patient's health status, clinical progression and re- assessment by fellow clinical providers in the ED. Further treatment and workup at subsequent clinical providers discretion. Patient/guardians urged not to elope from the ED as their condition may be serious if not clinically assessed and managed. Initial orders include: 1- Patient sent to MAIN ED for further evaluation and treatment 2- labs 3- UA 4- EKG 5- CXR
[2018-12-15 22:56] LABS: Basophils # (Auto) 0.1 K/mm3 (0.0-0.1); Eosinophils # (Auto) 0.1 K/mm3 (0.0-0.4); Hematocrit 22.1 % (30.3-42.9); Hemoglobin 7.4 gm/dl (10.1-14.3); Lymphocytes # (Auto) 1.1 K/mm3 (1.2-5.4); Lymphocytes % (Auto) 12.6 % (13.4-35.0); Mean Corpuscular HGB Conc 33 % (30-34); Mean Corpuscular Volume 99 fl (79-97); Monocytes # (Auto) 0.8 K/mm3 (0.0-0.8); Monocytes % (Auto) 9.1 % (0.0-7.3); Platelet Count 133 K/mm3 (140-440); Red Blood Count 2.23 M/mm3 (3.65-5.03); Red Cell Distribution Width 13.7 % (13.2-15.2)
[2018-12-15 23:08] LABS: INR 1.43 (0.87-1.13)
[2018-12-15 23:09] LABS: Partial Thromboplastin Time 34.9 Sec. (24.2-36.6)
--- NOTE | 2018-12-15 23:19 | Emergency Department Report ---
HPI - General Chief Complaint: Pain General Time Seen by Provider: 12/15/18 22:22 - HPI HPI: 43-year-old [place] female presents to the emergency department from home with complaint of some bilateral lower extremity swelling and some generalized weakness. The patient does not speak fluent [place] so a translation service was used so she could give information in her [place] language. She has a past medical history of insulin-dependent diabetes and liver disease. 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 Patient says that recently she has been having some subjective fever and chills. 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 She denies any chest pain, shortness of breath, abdominal pain, nausea, vomiting. Her is currently at bedside and says that he looks very pale to him. ED Past Medical Hx - Past Medical History Previous Medical History?: Yes Hx Hypertension: No Hx Congestive Heart Failure: No Hx Diabetes: Yes Hx Deep Vein Thrombosis: No Hx Liver Disease: Yes Hx Renal Disease: No Hx Sickle Cell Disease: No Hx Seizures: No Hx Asthma: No Hx COPD: No Hx HIV: No - Surgical History Past Surgical History?: Yes Additional Surgical History: right leg fracture repair - Social History Smoking Status: Never Smoker Substance Use Type: None - Medications Home Medications: Home Medications Medication Instructions Recorded Confirmed Last Taken Type Insulin Lispro [HumaLOG VIAL] 0 units SQ AC #1 vial 06/16/18 08/20/18 08/19/18 Rx ED Review of Systems ROS: Stated complaint: BODY PAIN Other details as noted in HPI Comment: All other systems reviewed and negative Constitutional: chills, weakness Eyes: denies: eye pain, vision change ENT: denies: ear pain, throat pain Respiratory: denies: cough, shortness of breath Cardiovascular: edema. denies: palpitations Gastrointestinal: denies: abdominal pain, vomiting Genitourinary: denies: dysuria, discharge Musculoskeletal: myalgia. denies: back pain, arthralgia Skin: denies: rash, lesions Neurological: weakness. denies: headache, numbness, paresthesias Physical Exam - Physical Exam Vital Signs: Vital Signs 12/15/18 22:22 Temperature 98.2 F Pulse Rate 95 H Respiratory 16 Rate Blood Pressure 113/68 O2 Sat by Pulse 100 Oximetry Physical Exam: GENERAL: The patient is well-developed well-nourished. HENT: Normocephalic. Atraumatic. Patient has moist mucous membranes. EYES: Extraocular motions are intact. Pupils equal reactive to light bilaterally. Pale conjunctiva. NECK: Supple. Trachea is midline. CHEST/LUNGS: Clear to auscultation. There is no respiratory distress noted. HEART/CARDIOVASCULAR: Regular. There is no tachycardia. There is no murmur. ABDOMEN: Abdomen is soft. Mild right upper quadrant tenderness to palpation. No guarding. Patient has normal bowel sounds. There is no abdominal distention. SKIN: Skin is warm and dry. Skin is pale. 1-2+ pitting edema of the bilateral lower extremities. NEURO: The patient is awake, alert, and oriented. The patient is cooperative. The patient has no focal neurologic deficits. The patient has normal speech. MUSCULOSKELETAL: There is no tenderness or deformity. There is no limitation range of motion. There is no evidence of acute injury. ED Course Vital Signs 12/15/18 22:22 Temperature 98.2 F Pulse Rate 95 H Respiratory 16 Rate Blood Pressure 113/68 O2 Sat by Pulse 100 Oximetry ED Medical Decision Making - Lab Data Result diagrams: 12/16/18 04:41 12/16/18 12:34 - EKG Data -: EKG Interpreted by Me EKG shows normal: sinus rhythm, axis, intervals, ST-T waves Rate: normal - EKG Data When compared to previous EKG there are: no significant change Interpretation: unchanged when compared t (11/18/18) - Radiology Data Radiology results: report reviewed, image reviewed interpreted by me: Chest x-ray does not show any acute process. There are no pleural effusions, obvious pneumonia and there is no pneumothorax. US abdomen limited INDICATION / CLINICAL INFORMATION: RUQ pain. COMPARISON: None available. FINDINGS: A 9.6 cm mass is seen in the right lobe of the liver. The gallbladder is not distended although the wall appears to be thickened measuring 6 mm. No stones are seen in the gallbladder. Common bile duct is normal measuring 2 mm. Visualized portions of the right kidney and pancreas are normal. IMPRESSION: 1. 9.6 cm mass in the right lobe of the liver 2. The gallbladder is not distended although the wall appears to be thickened. No gallstones are seen. CT abdomen pelvis w con INDICATION / CLINICAL INFORMATION: liver mass, abd pain. TECHNIQUE: All CT scans at this location are performed using CT dose reduction for ALARA by means of automated exposure control. COMPARISON: None available. FINDINGS: No free fluid is seen in the abdomen. There is a in 8 cm mass present in the right lobe of the liver. There may be several smaller low-density lesions in the liver as well. The spleen, kidneys, adrenal glands and great vessels are normal. The pancreas is very small and contains calcification consistent with chronic pancreatitis. Fluid-filled small bowel is seen In the pelvis, a small amount of fluid is present. An IUD is present in the uterus. No enlarged lymph nodes are identified. The bladder is normal. IMPRESSION: 1. 8 cm mass in the right lobe of the liver. There may be other small low- density lesions in the liver as well 2. Small pancreas containing calcification which could be due to chronic pancreatitis 3. IUD present in the uterus - Medical Decision Making This patient presents to the emergency department with some generalized weakness, fatigue and lower extremity swelling. On examination she appears pale with pale conjunctiva, and does have 1-2+ pitting edema of the bilateral lower extremities. Otherwise she does not have any focal, motor or sensory deficits in her cranial nerves are intact. Chest x-ray did not show any acute process. The patient's labs show a hemoglobin of 7.4 which is a 4 g drop from about 1 mon th ago. This, along with the paleness she displays, and her complaints of generalized weakness and fatigue, appears consistent with symptomatic anemia, and the patient will receive 1 unit of packed red blood cells for transfusion. She has some nonspecific history of "liver disease" and had a little bit of right upper quadrant tenderness to palpation on examination, so an ultrasound was performed that showed a 9 cm liver mass. The patient later had a CT scan of the abdomen and pelvis with IV contrast that once again showed a 8 cm liver mass in the right lobe and may be some signs of chronic pancreatitis. The patient will be admitted to the hospital for further evaluation and treatment and was accepted for admission by the hospitalist. - Differential Diagnosis cirrhosis, hepatitis, CHF, pneumonia, sepsis, cholelithiasis Critical Care Time: Yes Critical care time in (mins) excluding proc time.: 35 Critical care attestation.: If time is entered above; I have spent that time in minutes in the direct care of this critically ill patient, excluding procedure time. Critical care time w as spent on this patient and doing her initial evaluation, multiple re- evaluations, ordering an interpretation of labs and imaging, ordering of blood for transfusion Critical Care Time: 35 minutes ED Disposition Clinical Impression: Liver mass, Lower extremity edema, Lactic acid acidosis, Symptomatic anemia Anemia Qualifiers: Anemia type: unspecified type Qualified Code(s): D64.9 - Anemia, unspecified Disposition: OP ADMIT IP TO THIS HOSP Is pt being admited?: Yes Condition: Serious Time of Disposition: 00:05
[2018-12-15 23:33] LABS: BUN/Creatinine Ratio TNR; Blood Urea Nitrogen TNR mg/dL (7-17)
[2018-12-15 23:34] LABS: Calcium TNR mg/dL (8.4-10.2); Hemolysis Index TNR
[2018-12-16 00:08] LABS: Alanine Aminotransferase 27 units/L (7-56); Albumin 1.9 g/dL (3.9-5); BUN/Creatinine Ratio 27; Bilirubin,Direct 0.9 mg/dL (0-0.2); Blood Urea Nitrogen 8 mg/dL (7-17); Calcium 6.9 mg/dL (8.4-10.2); Hemolysis Index 3
[2018-12-16 00:13] LABS: Partial Thromboplastin Time 40.7 Sec. (24.2-36.6)
[2018-12-16 00:18] LABS: INR 1.36 (0.87-1.13)
--- NOTE | 2018-12-16 00:23 | XRay Report ---
CHEST 2 VIEWS INDICATION / CLINICAL INFORMATION: Chest Pain. COMPARISON: 11/18/2018 FINDINGS: SUPPORT DEVICES: None. HEART / MEDIASTINUM: No significant abnormality. LUNGS / PLEURA: No significant pulmonary or pleural abnormality. No pneumothorax. ADDITIONAL FINDINGS: No significant additional findings. IMPRESSION: No significant abnormality or change from 11/18/2018 Signer Name: Greg Sharma MD FACR Signed: 12/16/2018 12:19 AM Workstation Name: [id number]
[2018-12-16] MEDS ORDERED: NACL 0.9% 500 ML 500 ML IV ONE (00:42)
[2018-12-16 01:05] LABS: Bilirubin,Urine NEG (Negative); Blood,Urine SM (Negative); Color,Urine Yellow (Yellow); Mucus,Urine FEW /HPF; Protein,Urine <15 mg/dL mg/dL (Negative); Urobilinogen,Urine < 2.0 mg/dL (<2.0)
--- NOTE | 2018-12-16 01:11 | Ultrasound Report ---
US abdomen limited INDICATION / CLINICAL INFORMATION: RUQ pain. COMPARISON: None available. FINDINGS: A 9.6 cm mass is seen in the right lobe of the liver. The gallbladder is not distended although the w all appears to be thickened measuring 6 mm. No stones are seen in the gallbladder. Common bile duct i s normal measuring 2 mm. Visualized portions of the right kidney and pancreas are normal. IMPRESSION: 1. 9.6 cm mass in the right lobe of the liver 2. The gallbladder is not distended although the wall appears to be thickened. No gallstones are seen . Signer Name: Greg Sharma MD FACR Signed: 12/16/2018 1:07 AM Workstation Name: [id number]
[2018-12-16 01:17] LABS: Amphetamine Screen,Urine PRESUMPTIVE NEGATIVE; Benzodiazepines Screen,Urine PRESUMPTIVE NEGATIVE; Cannabinoid Screen,Urine PRESUMPTIVE NEGATIVE; Cocaine Screen,Urine PRESUMPTIVE NEGATIVE; Methadone Screen,Urine PRESUMPTIVE NEGATIVE; Opiate Screen,Urine PRESUMPTIVE NEGATIVE
[2018-12-16] MEDS ORDERED: SODIUM CHLORIDE FLUSH SYRINGE 10 ML IV PRN (01:40)
[2018-12-16] MEDS ORDERED: ZOFRAN IV PRN (01:40)
[2018-12-16] MEDS ORDERED: D50W (25GM) Syringe IV PRN (01:40)
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
[2018-12-16] MEDS ORDERED: NACL 0.9% 1000 ML 1,000 ML IV SCH (02:00)
[2018-12-16] MEDS ORDERED: TESSALON PERLES PO ONE (02:51)
[2018-12-16] MEDS: TYLENOL PO PRN (02:55)
--- NOTE | 2018-12-16 02:56 | Cat Scan Report ---
CT abdomen pelvis w con INDICATION / CLINICAL INFORMATION: liver mass, abd pain. TECHNIQUE: All CT scans at this location are performed using CT dose reduction for ALARA by means of automated e xposure control. COMPARISON: None available. FINDINGS: No free fluid is seen in the abdomen. There is a in 8 cm mass present in the right lobe of the liver. There may be several smaller low-density lesions in the liver as well. The spleen, kidneys, adrenal glands and great vessels are normal. The pancreas is very small and contains calcification consistent with chronic pancreatitis. Fluid-filled small bowel is seen In the pelvis, a small amount of fluid is present. An IUD is present in the uterus. No enlarged lymph nodes are identified. The bladder is normal. IMPRESSION: 1. 8 cm mass in the right lobe of the liver. There may be other small low-density lesions in the live r as well 2. Small pancreas containing calcification which could be due to chronic pancreatitis 3. IUD present in the uterus Signer Name: Greg Sharma MD FACR Signed: 12/16/2018 2:52 AM Workstation Name: [id number]
[2018-12-16 04:19] LABS: Creatine Kinase MB < 1.0 ng/mL (0.0-4.0)
[2018-12-16] MEDS ORDERED: NACL 0.9% 500 ML 500 ML IV SCH (05:00)
[2018-12-16 05:07] LABS: Basophils % (Auto) 0.4 % (0.0-1.8); Hematocrit 27.6 % (30.3-42.9); Hemoglobin 9.6 gm/dl (10.1-14.3); Lymphocytes # (Auto) 0.8 K/mm3 (1.2-5.4); Lymphocytes % (Auto) 7.9 % (13.4-35.0); Mean Corpuscular HGB Conc 35 % (30-34); Mean Corpuscular Volume 93 fl (79-97); Monocytes # (Auto) 0.6 K/mm3 (0.0-0.8); Monocytes % (Auto) 5.6 % (0.0-7.3); Platelet Count 128 K/mm3 (140-440); Red Blood Count 2.96 M/mm3 (3.65-5.03); Red Cell Distribution Width 15.3 % (13.2-15.2)
[2018-12-16] MEDS ORDERED: ZOSYN/NS 3.375GM/50ML 3.375 GM/50 ML BAG IV SCH (06:00)
--- NOTE | 2018-12-16 08:01 | Event Note ---
Date: 12/16/18 [id number]
[2018-12-16 08:19] LABS: Creatine Kinase MB < 1.0 ng/mL (0.0-4.0)
[2018-12-16] MEDS: HumaLOG SUB-Q SCH ×4 (09:07→22:17)
[2018-12-16] MEDS: SODIUM CHLORIDE FLUSH SYRINGE 10 ML IV SCH ×2 (13:08→22:19)
[2018-12-16 13:14] LABS: BUN/Creatinine Ratio 25; Blood Urea Nitrogen 5 mg/dL (7-17); Calcium 6.6 mg/dL (8.4-10.2); Hemolysis Index 12
--- NOTE | 2018-12-16 13:30 | Event Note ---
Date: 12/16/18 Patient admitted today for acute on chronic anemia, new liver mass and SIRS, exact source of infection unknown. Was found to have nonsustained V. tach on her home help aide. Serial troponin level negative. Electrolyte and TFT levels pending. Echocardiogram showed EF of 50-55%, no wall motion abnormalities. We will continue current management for now.
[2018-12-16] MEDS: ZOSYN/NS 4.5GM/100ML 4.5 GM/100 ML VIAL IV SCH ×2 (13:39→22:18)
--- NOTE | 2018-12-16 15:09 | Consultation ---
History of Present Illness - Reason for Consult Consult date: 12/16/18 Liver mass Requesting physician: AYAH ARANGO - History of Present Illness Ms. Knapp is a 43-year-old diabetic patient who presented to the hospital with a 4- 5 day history of nausea and vomiting with by mouth intake as well as weakness. Evaluation here included a CT scan of the abdomen which showed an 8 cm mass in the right lobe of the liver. GI consultation is requested for evaluation. Julio osborne states that at the age of 20, she had some kind of a liver infection requiring surgery of some type. Unfortunately the details are unknown, and this occurred in [place]. She is not aware of any problems with liver disease since then. She has not had any problems with abdominal pain, nausea, vomiting, or jaundice until now. Of note, she was hospitalized here in May and in August with hypoglycemia due to her type 1 diabetes. She was noted to have mild elevations of her liver enzymes during those admissions. No inpatient workup was performed. This admission, her transaminases are normal except for the alkaline phosphatase which is elevated at 289. She is also anemic with a hemoglobin of 9.6, and was 11.5 in November 18. There is no history of GI bleed. Patient does note that over the last for 5 days, she had chills at times. Patient denies weight loss. Meds reviewed. Past History Past Medical History: diabetes (insulin-dependent), liver disease (purulent liver disease requiring surgery at age 20 in [place]) Past Surgical History: Other (right leg fracture) Social history: , other (never smoker) Family history: no significant family history Medications and Allergies Allergies Allergy/AdvReac Type Severity Reaction Status Date / Time No Known Allergies Allergy Unverified 01/21/16 09:19 Home Medications Medication Instructions Recorded Confirmed Last Taken Type Insulin Lispro [HumaLOG VIAL] 0 units SQ AC #1 vial 06/16/18 08/20/18 08/19/18 Rx Active Meds: Active Medications Acetaminophen (Tylenol) 650 mg PO Q4H PRN PRN Reason: Pain MILD(1-3)/Fever >100.5/STEARNS Last Admin: 12/16/18 02:55 Dose: 650 mg Documented by: Dextrose (D50w (25gm) Syringe) 50 ml IV PRN PRN PRN Reason: Hypoglycemia Enoxaparin Sodium (Lovenox) 40 mg SUB-Q QDAY@2200 ADDI Sodium Chloride (Nacl 0.9% 500 Ml) 500 mls @ 100 mls/hr IV DIRECT ADDI Last Admin: 12/16/18 05:10 Dose: 100 mls/hr Documented by: Piperacillin Sod/Tazobactam Sod (Zosyn/Ns 4.5gm/100ml) 4.5 gm in 100 mls @ 200 mls/hr IV Q8HR ADDI Last Admin: 12/16/18 13:39 Dose: 200 mls/hr Documented by: Insulin Human Lispro (Humalog) 0 unit SUB-Q ACHS ADDI; Protocol Last Admin: 12/16/18 13:07 Dose: 3 unit Documented by: Ondansetron HCl (Zofran) 4 mg IV Q8H PRN PRN Reason: Nausea And Vomiting Sodium Chloride (Sodium Chloride Flush Syringe 10 Ml) 10 ml IV BID ADDI Last Admin: 12/16/18 13:08 Dose: 10 ml Documented by: Sodium Chloride (Sodium Chloride Flush Syringe 10 Ml) 10 ml IV PRN PRN PRN Reason: LINE FLUSH Last Admin: 12/16/18 05:11 Dose: 10 ml Documented by: Review of Systems All systems: negative (as noted) Exam - Constitutional Vitals: Temp Pulse Resp BP Pulse Ox 98.7 F 87 15 104/64 97 12/16/18 09:53 12/16/18 09:53 12/16/18 09:53 12/16/18 09:53 12/16/18 09:53 General appearance: Present: no acute distress - EENT Eyes: Present: PERRL, EOM intact ENT: hearing intact - Neck Neck: Present: supple - Respiratory Respiratory effort: normal Respiratory: bilateral: CTA - Cardiovascular Rhythm: regular Heart Sounds: Present: S1 & S2 - Abdominal General gastrointestinal: Present: soft, non-tender Results - Labs CBC & Chem 7: 12/16/18 04:41 12/16/18 12:34 Labs: Abnormal lab results 12/15/18 12/15/18 12/15/18 Range/Units 22:38 22:38 22:38 RBC 2.23 L (3.65-5.03) M/mm3 Hgb 7.4 L (10.1-14.3) gm/dl Hct 22.1 L (30.3-42.9) % MCV 99 H (79-97) fl MCH 33 H (28-32) pg MCHC (30-34) % RDW (13.2-15.2) % Plt Count 133 L (140-440) K/mm3 Lymph % (Auto) 12.6 L (13.4-35.0) % Mccreary % (Auto) 9.1 H (0.0-7.3) % Lymph # 1.1 L (1.2-5.4) K/mm3 Seg Neutrophils % 76.3 H (40.0-70.0) % Seg Neutrophils # (1.8-7.7) K/mm3 PT 17.1 H (12.2-14.9) Sec. INR 1.43 H (0.87-1.13) APTT (24.2-36.6) Sec. Sodium (137-145) mmol/L BUN (7-17) mg/dL Creatinine (0.7-1.2) mg/dL Glucose (65-100) mg/dL POC Glucose (70-105) Lactic Acid (0.7-2.0) mmol/L Calcium (8.4-10.2) mg/dL Direct Bilirubin (0-0.2) mg/dL Alkaline Phosphatase (35-129) units/L Ammonia (25-60) umol/L NT-Pro-B Natriuret Pep 1198 H (0-450) pg/mL Total Protein (6.3-8.2) g/dL Albumin (3.9-5) g/dL Crossmatch 12/15/18 12/15/18 12/15/18 Range/Units 23:10 23:20 23:20 RBC (3.65-5.03) M/mm3 Hgb (10.1-14.3) gm/dl Hct (30.3-42.9) % MCV (79-97) fl MCH (28-32) pg MCHC (30-34) % RDW (13.2-15.2) % Plt Count (140-440) K/mm3 Lymph % (Auto) (13.4-35.0) % Mccreary % (Auto) (0.0-7.3) % Lymph # (1.2-5.4) K/mm3 Seg Neutrophils % (40.0-70.0) % Seg Neutrophils # (1.8-7.7) K/mm3 PT (12.2-14.9) Sec. INR (0.87-1.13) APTT (24.2-36.6) Sec. Sodium (137-145) mmol/L BUN (7-17) mg/dL Creatinine (0.7-1.2) mg/dL Glucose (65-100) mg/dL POC Glucose (70-105) Lactic Acid 2.60 H* (0.7-2.0) mmol/L Calcium (8.4-10.2) mg/dL Direct Bilirubin (0-0.2) mg/dL Alkaline Phosphatase (35-129) units/L Ammonia 18.0 L (25-60) umol/L NT-Pro-B Natriuret Pep (0-450) pg/mL Total Protein (6.3-8.2) g/dL Albumin (3.9-5) g/dL Crossmatch See Detail 12/15/18 12/15/18 12/16/18 Range/Units 23:35 23:35 01:04 RBC (3.65-5.03) M/mm3 Hgb (10.1-14.3) gm/dl Hct (30.3-42.9) % MCV (79-97) fl MCH (28-32) pg MCHC (30-34) % RDW (13.2-15.2) % Plt Count (140-440) K/mm3 Lymph % (Auto) (13.4-35.0) % Mccreary % (Auto) (0.0-7.3) % Lymph # (1.2-5.4) K/mm3 Seg Neutrophils % (40.0-70.0) % Seg Neutrophils # (1.8-7.7) K/mm3 PT 16.4 H (12.2-14.9) Sec. INR 1.36 H (0.87-1.13) APTT 40.7 H (24.2-36.6) Sec. Sodium 135 L (137-145) mmol/L BUN (7-17) mg/dL Creatinine 0.3 L (0.7-1.2) mg/dL Glucose 188 H (65-100) mg/dL POC Glucose (70-105) Lactic Acid 2.60 H* (0.7-2.0) mmol/L Calcium 6.9 L (8.4-10.2) mg/dL Direct Bilirubin 0.9 H (0-0.2) mg/dL Alkaline Phosphatase 289 H (35-129) units/L Ammonia (25-60) umol/L NT-Pro-B Natriuret Pep (0-450) pg/mL Total Protein 5.8 L (6.3-8.2) g/dL Albumin 1.9 L (3.9-5) g/dL Crossmatch 12/16/18 12/16/18 12/16/18 Range/Units 03:39 04:41 04:41 RBC 2.96 L (3.65-5.03) M/mm3 Hgb 9.6 L (10.1-14.3) gm/dl Hct 27.6 L (30.3-42.9) % MCV (79-97) fl MCH (28-32) pg MCHC 35 H (30-34) % RDW 15.3 H (13.2-15.2) % Plt Count 128 L (140-440) K/mm3 Lymph % (Auto) 7.9 L (13.4-35.0) % Mccreary % (Auto) (0.0-7.3) % Lymph # 0.8 L (1.2-5.4) K/mm3 Seg Neutrophils % 86.1 H (40.0-70.0) % Seg Neutrophils # 9.0 H (1.8-7.7) K/mm3 PT (12.2-14.9) Sec. INR (0.87-1.13) APTT (24.2-36.6) Sec. Sodium (137-145) mmol/L BUN (7-17) mg/dL Creatinine (0.7-1.2) mg/dL Glucose (65-100) mg/dL POC Glucose (70-105) Lactic Acid 2.90 H* 2.60 H* (0.7-2.0) mmol/L Calcium (8.4-10.2) mg/dL Direct Bilirubin (0-0.2) mg/dL Alkaline Phosphatase (35-129) units/L Ammonia (25-60) umol/L NT-Pro-B Natriuret Pep (0-450) pg/mL Total Protein (6.3-8.2) g/dL Albumin (3.9-5) g/dL Crossmatch 12/16/18 12/16/18 Range/Units 05:09 12:34 RBC (3.65-5.03) M/mm3 Hgb (10.1-14.3) gm/dl Hct (30.3-42.9) % MCV (79-97) fl MCH (28-32) pg MCHC (30-34) % RDW (13.2-15.2) % Plt Count (140-440) K/mm3 Lymph % (Auto) (13.4-35.0) % Mccreary % (Auto) (0.0-7.3) % Lymph # (1.2-5.4) K/mm3 Seg Neutrophils % (40.0-70.0) % Seg Neutrophils # (1.8-7.7) K/mm3 PT (12.2-14.9) Sec. INR (0.87-1.13) APTT (24.2-36.6) Sec. Sodium 134 L (137-145) mmol/L BUN 5 L (7-17) mg/dL Creatinine 0.2 L (0.7-1.2) mg/dL Glucose 217 H (65-100) mg/dL POC Glucose 137 H (70-105) Lactic Acid (0.7-2.0) mmol/L Calcium 6.6 L (8.4-10.2) mg/dL Direct Bilirubin (0-0.2) mg/dL Alkaline Phosphatase (35-129) units/L Ammonia (25-60) umol/L NT-Pro-B Natriuret Pep (0-450) pg/mL Total Protein (6.3-8.2) g/dL Albumin (3.9-5) g/dL Crossmatch - Imaging and Cardiology CT scan - abdomen: report reviewed US - abdomen: report reviewed Assessment and Plan 1. R liver mass - noted on CT and on U/S. etiology unclear. Patient has a history of some kind of liver surgery at the age of 20, and this could therefore be some sort of a postoperative supply lock. However, a neoplastic process need s to be considered as well as abscess though does not appear to be such on imaging. - Obtain MRI - Get tumor markers - Check for hepatitis B - May need to consider liver biopsy.
--- NOTE | 2018-12-16 15:41 | Magnetic Resonance Report ---
MR ABDOMEN WITH AND WITHOUT CONTRAST HISTORY: Liver mass TECHNIQUE: Multisequence, multiplanar MRI before and after IV gadolinium. Postcontrast dynamic imagin g. COMPARISON: CT abdomen pelvis with contrast and ultrasound right upper quadrant performed 12/16/2018. FINDINGS: This examination is severely limited secondary to extensive breathing motion artifact. MRI demonstrates a predominantly cystic mass with peripheral enhancement in the right hepatic lobe me asuring 7.4 x 5.7 x 7.8 cm. There is no evidence for internal calcifications or gas. No additional li alejandro masses are identified on MR with contrast. There does appear to be a few dilated biliary ducts in the right hepatic lobe which is probably secondary to extrinsic compression from the liver mass. The liver is normal size and contour. No obvious cirrhotic changes. The portal vein and hepatic veins ap pear to be patent. The pancreas appears atrophic with diffuse calcifications consistent with chronic pancreatitis. The spleen is unremarkable measuring 11.3 cm in length. The biliary system, kidneys, adrenal glands and bowel loops are grossly unremarkable. No evidence for adenopathy, ascites or inflammatory changes. Normal bone marrow signal in the visualized bony structures. IMPRESSION: 7.4 x 5.7 x 7.8 cm predominantly cystic mass in the right hepatic lobe. This may represent a hepatic abscess. Cystic neoplasm is not entirely excluded. No obvious cirrhotic changes in the liver. Chronic pancreatitis. Signer Name: Jhonny Dowd Jr, MD Signed: 12/16/2018 3:37 PM Workstation Name: [id number]
[2018-12-16] MEDS ORDERED: PNEUMOVAX 23 IM ONE (16:17)
[2018-12-16] MEDS ORDERED: K-DUR PO NR (20:00)
[2018-12-16] MEDS: LOVENOX SUB-Q SCH (22:17)
[2018-12-17 05:09] LABS: Basophils % (Auto) 0.2 % (0.0-1.8); Eosinophils % (Auto) 0.2 % (0.0-4.3); Hematocrit 29.7 % (30.3-42.9); Hemoglobin 10.2 gm/dl (10.1-14.3); Lymphocytes # (Auto) 1.5 K/mm3 (1.2-5.4); Lymphocytes % (Auto) 15.4 % (13.4-35.0); Mean Corpuscular HGB Conc 34 % (30-34); Mean Corpuscular Volume 93 fl (79-97); Monocytes # (Auto) 0.9 K/mm3 (0.0-0.8); Monocytes % (Auto) 8.7 % (0.0-7.3); Platelet Count 150 K/mm3 (140-440); Red Blood Count 3.19 M/mm3 (3.65-5.03); Red Cell Distribution Width 15.5 % (13.2-15.2)
[2018-12-17 05:28] LABS: BUN/Creatinine Ratio 13; Blood Urea Nitrogen 4 mg/dL (7-17); Calcium 7.1 mg/dL (8.4-10.2); Hemolysis Index 2
[2018-12-17] MEDS: ZOSYN/NS 4.5GM/100ML 4.5 GM/100 ML VIAL IV SCH ×3 (06:33→21:42)
[2018-12-17] MEDS: TYLENOL PO PRN ×2 (06:33→21:42)
[2018-12-17] MEDS: HumaLOG SUB-Q SCH ×4 (08:00→22:38)
[2018-12-17] MEDS ORDERED: NS/KCL 20MEQ 20 MEQ/1,000 ML BAG IV SCH (10:00)
[2018-12-17] MEDS ORDERED: VANCOMYCIN PHARMACY TO DOSE IV SCH (10:00)
[2018-12-17] MEDS: SODIUM CHLORIDE FLUSH SYRINGE 10 ML IV SCH ×2 (11:20→21:42)
--- NOTE | 2018-12-17 11:51 | Progress Note ---
Assessment and Plan Assessment and plan: 43-year-old [place] female with history of insulin-dependent diabetes and questionable history of liver disease who presents to [facility] ED with bilateral lower extremity edema and generalized weakness. Severe sepsis, likely present on admission -Probably due to hepatic abscess per MRI abdomen -On IV antibiotics with vancomycin and Zosyn -Urinalysis and chest x-ray negative. Blood cultures negative so far -ID consulted -Patient may need hepatic drainage by IR Acute on chronic Anemia -Received 1u PRBC in ED -No evidence of overt bleeding -Continue to monitor Hgb and transfuse PRN New Liver mass -9.6cm right lobe liver mass seen on US Abd -CT Abd showed 8 cm mass in the right lobe of the liver -MRI abdomen suspicious of hepatic abscess -Heme-Onc and GI consulted on admission for possible hepatic malignancy -Tumor markers pending -ID consulted Pleuritic RT sided chest pain -CTA chest for further evaluation/r/o acute PE pending NSVT (1 episode per potline monitor) -Serial troponin levels negative -Echo negative for wall motion abnormality -Keep k>4 and Mg>2 -Consider cardiology consult if recurrent Questionable hepatitis C virus infection -ID following Insulin-dependent DM -POC BG monitoring -SSI coverage, BG stable -HgbA1c pending Elevated BNP -Probably due to the acute process -Echocardiogram showed preserved EF of 50-55% without diastolic dysfunction DVT prophylaxis with SCD Disposition: For discharge when medically stable. Follow-up recommendations by the specialists consulted History Interval history: Patient complained of cough with pleuritic chest pain. She denies abdominal pain, nausea or vomiting. Hospitalist Physical - Constitutional Vitals: Temp Pulse Resp BP Pulse Ox 99.9 F H 94 H 17 112/63 97 12/17/18 07:33 12/17/18 06:01 12/17/18 06:01 12/17/18 06:01 12/17/18 06:01 General appearance: Present: no acute distress - EENT Eyes: Present: PERRL, EOM intact ENT: hearing intact - Neck Neck: Present: supple - Respiratory Respiratory effort: normal Respiratory: bilateral: CTA - Cardiovascular Rhythm: regular Heart Sounds: Present: S1 & S2 - Extremities Extremity abnormal: edema (in BLE) - Abdominal General gastrointestinal: soft, non-tender, distended, normal bowel sounds - Integumentary Integumentary: Present: clear, warm, dry - Psychiatric Psychiatric: appropriate mood/affect - Neurologic Neurologic: CNII-XII intact Results - Labs CBC & Chem 7: 12/17/18 04:37 12/17/18 04:37 Labs: Laboratory Last Values WBC 10.0 K/mm3 (4.5-11.0) 12/17/18 04:37 RBC 3.19 M/mm3 (3.65-5.03) L 12/17/18 04:37 Hgb 10.2 gm/dl (10.1-14.3) 12/17/18 04:37 Hct 29.7 % (30.3-42.9) L 12/17/18 04:37 MCV 93 fl (79-97) 12/17/18 04:37 MCH 32 pg (28-32) 12/17/18 04:37 MCHC 34 % (30-34) 12/17/18 04:37 RDW 15.5 % (13.2-15.2) H 12/17/18 04:37 Plt Count 150 K/mm3 (140-440) 12/17/18 04:37 Lymph % (Auto) 15.4 % (13.4-35.0) 12/17/18 04:37 [place] % (Auto) 8.7 % (0.0-7.3) H 12/17/18 04:37 Eos % (Auto) 0.2 % (0.0-4.3) 12/17/18 04:37 Baso % (Auto) 0.2 % (0.0-1.8) 12/17/18 04:37 Lymph # 1.5 K/mm3 (1.2-5.4) 12/17/18 04:37 [place] # 0.9 K/mm3 (0.0-0.8) H 12/17/18 04:37 Eos # 0.0 K/mm3 (0.0-0.4) 12/17/18 04:37 Baso # 0.0 K/mm3 (0.0-0.1) 12/17/18 04:37 Seg Neutrophils % 75.5 % (40.0-70.0) H 12/17/18 04:37 Seg Neutrophils # 7.6 K/mm3 (1.8-7.7) 12/17/18 04:37 PT 16.4 Sec. (12.2-14.9) H 12/15/18 23:35 INR 1.36 (0.87-1.13) H 12/15/18 23:35 APTT 40.7 Sec. (24.2-36.6) H 12/15/18 23:35 Sodium 134 mmol/L (137-145) L 12/17/18 04:37 Potassium 3.6 mmol/L (3.6-5.0) 12/17/18 04:37 Chloride 99.1 mmol/L (98-107) 12/17/18 04:37 Carbon Dioxide 25 mmol/L (22-30) 12/17/18 04:37 14 mmol/L 12/17/18 04:37 BUN 4 mg/dL (7-17) L 12/17/18 04:37 0.3 mg/dL (0.7-1.2) L 12/17/18 04:37 Estimated GFR > 60 ml/min 12/17/18 04:37 13 % 12/17/18 04:37 Glucose 99 mg/dL (65-100) 12/17/18 04:37 POC Glucose 172 (70-105) H 12/17/18 11:36 5.7 % (4-6) 12/16/18 03:39 Lactic Acid 2.00 mmol/L (0.7-2.0) 12/16/18 08:24 Calcium 7.1 mg/dL (8.4-10.2) L 12/17/18 04:37 Magnesium 2.10 mg/dL (1.7-2.3) 12/16/18 12:34 1.20 mg/dL (0.1-1.2) 12/15/18 23:35 0.9 mg/dL (0-0.2) H 12/15/18 23:35 0.3 mg/dL 12/15/18 23:35 AST 39 units/L (5-40) 12/15/18 23:35 ALT 27 units/L (7-56) 12/15/18 23:35 289 units/L (35-129) H 12/15/18 23:35 18.0 umol/L (25-60) L 12/15/18 23:20 35 units/L (30-135) 12/16/18 07:39 CK-MB (CK-2) < 1.0 ng/mL (0.0-4.0) 12/16/18 07:39 CK-MB (CK-2) Rel Index 2.8 (0-4) 12/16/18 07:39 < 0.010 ng/mL (0.00-0.029) 08 07:39 NT-Pro-B Natriuret Pep 1198 pg/mL (0-450) H 12/15/18 22:38 5.8 g/dL (6.3-8.2) L 12/15/18 23:35 1.9 g/dL (3.9-5) L 12/15/18 23:35 0.5 % 12/15/18 23:35 TSH 9.070 mlU/mL (0.270-4.200) H 12/17/18 04:37 Free T4 1.19 ng/dL (0.76-1.46) 12/17/18 04:37 HCG, Qual Negative (Negative) 12/15/18 22:38 Yellow (Yellow) 12/16/18 00:01 Clear (Clear) 12/16/18 00:01 6.0 (5.0-7.0) 12/16/18 00:01 Ur Specific [place] 1.017 (1.003-1.030) 12/16/18 00:01 <15 mg/dl mg/dL (Negative) 12/16/18 00:01 Neg mg/dL (Negative) 12/16/18 00:01 Neg mg/dL (Negative) 12/16/18 00:01 Sm (Negative) 12/16/18 00:01 Neg (Negative) 12/16/18 00:01 Neg (Negative) 12/16/18 00:01 < 2.0 mg/dL (<2.0) 12/16/18 00:01 Ur Leukocyte Esterase Neg (Negative) 12/16/18 00:01 3.0 /HPF (0.0-6.0) 12/16/18 00:01 6.0 /HPF (0.0-6.0) 12/16/18 00:01 U Epithel Cells (Auto) 1.0 /HPF (0-13.0) 12/16/18 00:01 Few /HPF 12/16/18 00:01 Presumptive negative 12/16/18 00:01 Presumptive negative 12/16/18 00:01 Ur Barbiturates Screen Presumptive negative 12/16/18 00:01 Ur Phencyclidine Scrn Presumptive negative 12/16/18 00:01 Ur Amphetamines Screen Presumptive negative 12/16/18 00:01 U Benzodiazepines Scrn Presumptive negative 12/16/18 00:01 Presumptive negative 12/16/18 00:01 U Marijuana (THC) Screen Presumptive negative 12/16/18 00:01 Disclamer 12/16/18 00:01 Blood Type O POSITIVE 12/15/18 23:10 Antibody Screen Negative 12/15/18 23:10 Crossmatch See Detail 12/15/18 23:10 Active Medications - Current Medications Current Medications: Generic Name Dose Route Start Last Admin Trade Name Freq PRN Reason Stop Dose Admin Acetaminophen 650 mg 12/16/18 01:40 12/17/18 06:33 Tylenol PO 650 mg Q4H PRN Administration Pain MILD(1-3)/Fever >100.5/STEARNS Dextrose 50 ml 12/16/18 01:40 D50w (25gm) Syringe IV PRN PRN Hypoglycemia Enoxaparin Sodium 40 mg 12/16/18 22:00 12/16/18 22:17 Lovenox SUB-Q 40 mg QDAY@2200 ADDI Administration Sodium Chloride 500 mls @ 100 mls/hr 12/16/18 05:00 12/16/18 05:10 Nacl 0.9% 500 Ml IV 100 mls/hr DIRECT ADDI Administration Piperacillin Sod/Tazobactam Sod 4.5 gm in 100 mls @ 200 mls/hr 12/16/18 14:00 12/17/18 06:33 Zosyn/Ns 4.5gm/100ml IV 200 mls/hr Q8HR ADDI Administration Potassium Chloride/Sodium Chloride 20 meq in 1,000 mls @ 42 mls/hr 12/17/18 10:00 12/17/18 11:20 Ns/Kcl 20meq IV 42 mls/hr DIRECT ADDI Administration Vancomycin HCl 750 mg/ Sodium 265 mls @ 176.667 mls/hr 12/17/18 11:00 Chloride IV Q12H ADDI Insulin Human Lispro 0 unit 12/16/18 07:30 12/17/18 08:00 Humalog SUB-Q Not Given ACHS [facility] Protocol Ondansetron HCl 4 mg 12/16/18 01:40 Zofran IV Q8H PRN Nausea And Vomiting Pneumococcal Polyvalent Vaccine 0.5 ml 12/17/18 12:00 Pneumovax 23 IM 12/17/18 12:01 .ONCE ONE Sodium Chloride 10 ml 12/16/18 10:00 12/17/18 11:20 Sodium Chloride Flush Syringe 10 Ml IV 10 ml BID ADDI Administration Sodium Chloride 10 ml 12/16/18 01:40 12/16/18 05:11 Sodium Chloride Flush Syringe 10 Ml IV 10 ml PRN PRN Administration LINE FLUSH
[2018-12-17] MEDS ORDERED: PNEUMOVAX 23 IM ONE (12:00)
[2018-12-17] MEDS ORDERED: K-DUR PO ONE (12:00)
[2018-12-17] MEDS: VANCOMYCIN 750 MG in NACL 0.9% 250ML 250 ML IV SCH ×2 (12:49→23:47)
--- NOTE | 2018-12-17 14:26 | Cat Scan Report ---
CTA CHEST WITH IV CONTRAST INDICATION: metastasis and acute PE. Shortness of breath TECHNIQUE: Axial CT images were obtained through the chest after injection of 100 cc Omnipaque 350 IV contrast. 3 plane MIP reconstructions were produced. All CT scans at this location are performed using CT dose reduction for ALARA by means of automated exposure control. COMPARISON: CT abdomen 12/16/2018 FINDINGS: PULMONARY ARTERIES: No pulmonary emboli. THORACIC AORTA: No acute abnormality. HEART: Normal. CORONARY ARTERIES: No significant calcification. PLEURA: Small right pleural effusion with right basilar atelectasis No pneumothorax. LYMPH NODES: No significant adenopathy. LUNGS: No acute air space or interstitial disease. ADDITIONAL FINDINGS: None. UPPER ABDOMEN: Multiple small liver metastasesMultiple, unchanged. 7.3 cm mass within posterior hepat ic segment image 82 seen better on yesterday's CT abdomen. Calcifications within the pancreatic duct with moderate pancreatic atrophy characteristic for chronic pancreatitis. SKELETAL STRUCTURES: No significant osseous abnormality. IMPRESSION: 1. No CT evidence for pulmonary embolism. 2. Small right pleural effusion and right hepatic mass with smaller satellite metastases within right hepatic lobe seen better on yesterday's CT abdomen. 3. Chronic pancreatitis Signer Name: Tucker Kasper MD Signed: 12/17/2018 2:22 PM Workstation Name: [id number]
--- NOTE | 2018-12-17 15:56 | Gastroenterology Progress Note ---
Assessment and Plan - Patient Problems (1) Hepatitis C antibody positive in blood Current Visit: Yes Status: Acute Plan to address problem: - HCV Ab (+) but VL negative in August 2018; suspect false positive. - Will f/u on AFP (already drawn). - HBV serology negative. (2) Liver mass Current Visit: Yes Status: Acute Plan to address problem: - Fevers with elevated WBC and (?) liver mass v abscess v post-surgical changes. - Continue current abx, and monitor WBC and fever curve. - I have contacted Liver surgery at [facility] (Dr Alexander) to discuss next steps (may be liver mass aspiration/drainage) or surgical resection. Subjective Date of service: 12/17/18 Principal diagnosis: Liver Lesion Interval history: The patient denies RUQ pain, N/V, or blood in the stool. Still having fevers, but low-grade. Objective - Constitutional Vitals: Temp Pulse Resp BP Pulse Ox 98.2 F 91 H 14 96/62 95 12/17/18 11:31 12/17/18 11:31 12/17/18 11:31 12/17/18 11:31 12/17/18 11:31 General appearance: no acute distress - Neck Neck: supple, normal ROM - Respiratory Respiratory effort: normal Respiratory: bilateral: CTA - Cardiovascular Rhythm: regular Heart Sounds: Present: S1 & S2 - Gastrointestinal General gastrointestinal: Present: soft, tender (Minimal in RUQ), non-distended - Labs CBC & Chem 7: 12/17/18 04:37 12/17/18 04:37 Labs: Laboratory Results - last 24 hr 12/16/18 12/16/18 12/16/18 12:40 16:05 21:27 WBC RBC Hgb Hct MCV MCH MCHC RDW Plt Count Lymph % (Auto) [place] % (Auto) Eos % (Auto) Baso % (Auto) Lymph # [place] # Eos # Baso # Seg Neutrophils % Seg Neutrophils # Sodium Potassium Chloride Carbon Dioxide Anion Gap BUN Creatinine Estimated GFR BUN/Creatinine Ratio Glucose POC Glucose 248 H 136 H 192 H Calcium TSH Free T4 12/17/18 12/17/18 12/17/18 04:37 04:37 04:37 WBC 10.0 RBC 3.19 L Hgb 10.2 Hct 29.7 L MCV 93 MCH 32 MCHC 34 RDW 15.5 H Plt Count 150 Lymph % (Auto) 15.4 [place] % (Auto) 8.7 H Eos % (Auto) 0.2 Baso % (Auto) 0.2 Lymph # 1.5 [place] # 0.9 H Eos # 0.0 Baso # 0.0 Seg Neutrophils % 75.5 H Seg Neutrophils # 7.6 Sodium 134 L Potassium 3.6 Chloride 99.1 Carbon Dioxide 25 Anion Gap 14 BUN 4 L Creatinine 0.3 L Estimated GFR > 60 BUN/Creatinine Ratio 13 Glucose 99 POC Glucose Calcium 7.1 L TSH Free T4 1.19 12/17/18 12/17/18 12/17/18 04:37 08:03 11:36 WBC RBC Hgb Hct MCV MCH MCHC RDW Plt Count Lymph % (Auto) [place] % (Auto) Eos % (Auto) Baso % (Auto) Lymph # [place] # Eos # Baso # Seg Neutrophils % Seg Neutrophils # Sodium Potassium Chloride Carbon Dioxide Anion Gap BUN Creatinine Estimated GFR BUN/Creatinine Ratio Glucose POC Glucose 70 172 H Calcium TSH 9.070 H Free T4
--- NOTE | 2018-12-17 20:12 | Event Note ---
Date: 12/17/[address] Marcelino and we discussed the case. There is a dominant multiloculated abscess in the medial aspect segment 6 and 7. The multiloculated nature will make percutaneous drainage limited and Dr. Marcelino discussed the situation with [facility] who believes the optimal care will be for hepatic resection. Patient will likely be transferred on wednesday to [facility].
[2018-12-17] MEDS: LOVENOX SUB-Q SCH (21:42)
[2018-12-18 04:58] LABS: Hematocrit 26.9 % (30.3-42.9); Mean Corpuscular HGB Conc 33 % (30-34); Mean Corpuscular Volume 94 fl (79-97); Platelet Count 130 K/mm3 (140-440); Red Blood Count 2.86 M/mm3 (3.65-5.03); Red Cell Distribution Width 15.6 % (13.2-15.2)
[2018-12-18 05:21] LABS: Alanine Aminotransferase 19 units/L (7-56); Albumin 1.6 g/dL (3.9-5); BUN/Creatinine Ratio 25; Blood Urea Nitrogen 5 mg/dL (7-17); Calcium 7.2 mg/dL (8.4-10.2); Hemolysis Index 3
[2018-12-18] MEDS: ZOSYN/NS 4.5GM/100ML 4.5 GM/100 ML VIAL IV SCH (05:46)
--- NOTE | 2018-12-18 06:07 | Consultation ---
REFERRED BY: Nurse practitioner, Tiki Bhatt. REASON FOR CONSULTATION: Liver mass. HISTORY OF PRESENT ILLNESS: I saw the patient, a 43-year-old [place] female, in the medical floor. The patient has history of insulin-dependent diabetes, who last went to [place] on 09/15/2018, came to the hospital because of lower leg swelling and generalized weakness. was present. Most of the information came from medical records and . Energy was very low. She was not able to do daily chores and as the thought looked pale, patient was brought to the hospital. She also had fever, chills. No chest pain, no shortness of breath, no abdominal pain, no nausea, no vomiting, no diarrhea, no seizure. So, mainly fever, chills, leg swelling and weakness. PAST MEDICAL HISTORY: Diabetes, liver disease, hepatitis C. In August 2018, the test was negative. PAST SURGICAL HISTORY: Right leg surgery. SOCIAL HISTORY: Nonsmoker. FAMILY HISTORY: Noncontributory. ALLERGIES: None. HOME MEDICATIONS: Insulin. During this admission, Radiology showed liver mass. I have been asked to evaluate the patient. PHYSICAL EXAMINATION: VITAL SIGNS: Temperature 100, pulse 109, respirations 16, BP 93/58. HEENT: Mild pallor, no icterus. GENERAL: A thin-built female. NECK: No neck lymph nodes. HEART: S1, S2. LUNGS: Clear to auscultation. ABDOMEN: Soft. No guarding. EXTREMITIES: Bilateral leg edema present. NEUROLOGIC: Alert, awake and oriented. LABORATORY DATA: White cell 10, hemoglobin 9.6, MCV 93, platelet 128, potassium 3.7, creatinine 0.2, calcium 6.6, bilirubin 1.2, AST 39, LDH 230. RADIOLOGY: Abdominal ultrasound showed multiple liver lesions. Abdomen CT was done. Abdomen MRI was done and CTA chest was done, one report mentions 9.6 cm lesion. MRI mentioned this could be abscess. ASSESSMENT: 1. Liver lesions in a patient with history of hepatitis C. Differential includes a neoplastic process versus infectious abscess. Gastrointestinal team is following the patient. Alpha fetoprotein. 2. History of leg swelling. Albumin level is 1.9. 3. Diabetes. 4. Anemia. At admission, hemoglobin was 7.4. Transfusion support. 5. Mild thrombocytopenia. 6. Lactic acidosis. At this time, clinically, in view of her travel to [facility], this may be infectious etiology. I will follow the patient. JOB# [id number] HUDSON/MANUEL
[2018-12-18] MEDS ORDERED: FLAGYL 500 MG/100 ML 500 MG/100 ML BAG IV SCH (08:00)
--- NOTE | 2018-12-18 08:03 | Progress Note ---
Assessment and Plan Assessment and plan: 43-year-old woman, Swazi speaking. Presented to the hospital with generalized weakness, generalized edema. Past medical history; insulin-dependent diabetes, Liver abscess/severe sepsis It is a multiloculated abscess, planned for transfer to [place] for partial liver resection on Wednesday Continue antibiotics, ID consult add flagyl to cover for hepatic parasites Hep C antibody positive Viral load was negative in August 2018, GI input appreciated, it is likely a false positive, follow-up hepatitis B serology Acute on chronic anemia Likely anemia of chronic disease/due to sepsis, status post 1 unit PRBC Insulin-dependent diabetes Continue insulin coverage DVT prophylaxis with Lovenox History Interval history: Review of systems Constitutional: Still complaining of generalized weakness and malaise, tenderness to right upper quadrant CVS: No chest pain, no orthopnea, no dyspnea on exertion, no pedal edema GI: No abdominal pain, no diarrhea, no vomiting, no constipation Respiratory: no wheezing, no coughing Hospitalist Physical - Physical exam Narrative exam: General.: Appears well, no distress, nontoxic HEENT: Moist mucous membranes, extraocular muscles intact, no lymphadenopathy Neck: supple Cardiac: S1-S2 heard Lungs: clear to auscultation bilaterally Abdomen: soft , right upper quadrant is tender, nondistended, bowel sounds positive Extremities: no edema clubbing or cyanosis Skin: no rash or lesions Neurologic: no gross focal deficits Psych: calm, and cooperative - Constitutional Vitals: Temp Pulse Resp BP Pulse Ox 98.1 F 80 18 103/61 98 12/18/18 04:22 12/18/18 04:22 12/18/18 04:22 12/18/18 04:22 12/18/18 04:22 General appearance: Present: no acute distress Results - Labs CBC & Chem 7: 12/18/18 04:19 12/18/18 04:19 Labs: Laboratory Last Values WBC 14.2 K/mm3 (4.5-11.0) H 12/18/18 04:19 RBC 2.86 M/mm3 (3.65-5.03) L 12/18/18 04:19 Hgb 9.0 gm/dl (10.1-14.3) L 12/18/18 04:19 Hct 26.9 % (30.3-42.9) L 12/18/18 04:19 MCV 94 fl (79-97) 12/18/18 04:19 MCH 32 pg (28-32) 12/18/18 04:19 MCHC 33 % (30-34) 12/18/18 04:19 RDW 15.6 % (13.2-15.2) H 12/18/18 04:19 Plt Count 130 K/mm3 (140-440) L 12/18/18 04:19 Lymph % (Auto) 15.4 % (13.4-35.0) 12/17/18 04:37 [place] % (Auto) 8.7 % (0.0-7.3) H 12/17/18 04:37 Eos % (Auto) 0.2 % (0.0-4.3) 12/17/18 04:37 Baso % (Auto) 0.2 % (0.0-1.8) 12/17/18 04:37 Lymph # 1.5 K/mm3 (1.2-5.4) 12/17/18 04:37 [place] # 0.9 K/mm3 (0.0-0.8) H 12/17/18 04:37 Eos # 0.0 K/mm3 (0.0-0.4) 12/17/18 04:37 Baso # 0.0 K/mm3 (0.0-0.1) 12/17/18 04:37 Seg Neutrophils % 75.5 % (40.0-70.0) H 12/17/18 04:37 Seg Neutrophils # 7.6 K/mm3 (1.8-7.7) 12/17/18 04:37 PT 16.4 Sec. (12.2-14.9) H 12/15/18 23:35 INR 1.36 (0.87-1.13) H 12/15/18 23:35 APTT 40.7 Sec. (24.2-36.6) H 12/15/18 23:35 Sodium 136 mmol/L (137-145) L 12/18/18 04:19 Potassium 4.2 mmol/L (3.6-5.0) 12/18/18 04:19 Chloride 102.5 mmol/L (98-107) 12/18/18 04:19 Carbon Dioxide 25 mmol/L (22-30) 12/18/18 04:19 13 mmol/L 12/18/18 04:19 BUN 5 mg/dL (7-17) L 12/18/18 04:19 0.2 mg/dL (0.7-1.2) L 12/18/18 04:19 Estimated GFR > 60 ml/min 12/18/18 04:19 25 % 12/18/18 04:19 Glucose 119 mg/dL (65-100) H 12/18/18 04:19 POC Glucose 94 (70-105) 12/18/18 08:02 5.7 % (4-6) 12/16/18 03:39 Lactic Acid 2.00 mmol/L (0.7-2.0) 12/16/18 08:24 Calcium 7.2 mg/dL (8.4-10.2) L 12/18/18 04:19 Magnesium 2.10 mg/dL (1.7-2.3) 12/16/18 12:34 1.00 mg/dL (0.1-1.2) 12/18/18 04:19 0.9 mg/dL (0-0.2) H 12/15/18 23:35 0.3 mg/dL 12/15/18 23:35 AST 32 units/L (5-40) 12/18/18 04:19 ALT 19 units/L (7-56) 12/18/18 04:19 251 units/L (35-129) H 12/18/18 04:19 18.0 umol/L (25-60) L 12/15/18 23:20 35 units/L (30-135) 12/16/18 07:39 CK-MB (CK-2) < 1.0 ng/mL (0.0-4.0) 12/16/18 07:39 CK-MB (CK-2) Rel Index 2.8 (0-4) 12/16/18 07:39 < 0.010 ng/mL (0.00-0.029) 12/16/18 07:39 NT-Pro-B Natriuret Pep 1198 pg/mL (0-450) H 12/15/18 22:38 5.1 g/dL (6.3-8.2) L 12/18/18 04:19 1.6 g/dL (3.9-5) L 12/18/18 04:19 0.5 % 12/18/18 04:19 TSH 9.070 mlU/mL (0.270-4.200) H 12/17/18 04:37 Free T4 1.19 ng/dL (0.76-1.46) 12/17/18 04:37 HCG, Qual Negative (Negative) 12/15/18 22:38 Yellow (Yellow) 12/16/18 00:01 Clear (Clear) 12/16/18 00:01 6.0 (5.0-7.0) 12/16/18 00:01 Ur Specific [place] 1.017 (1.003-1.030) 12/16/18 00:01 <15 mg/dl mg/dL (Negative) 12/16/18 00:01 Neg mg/dL (Negative) 12/16/18 00:01 Neg mg/dL (Negative) 12/16/18 00:01 Sm (Negative) 12/16/18 00:01 Neg (Negative) 12/16/18 00:01 Neg (Negative) 12/16/18 00:01 < 2.0 mg/dL (<2.0) 12/16/18 00:01 Ur Leukocyte Esterase Neg (Negative) 12/16/18 00:01 3.0 /HPF (0.0-6.0) 12/16/18 00:01 6.0 /HPF (0.0-6.0) 12/16/18 00:01 U Epithel Cells (Auto) 1.0 /HPF (0-13.0) 12/16/18 00:01 Few /HPF 12/16/18 00:01 Presumptive negative 12/16/18 00:01 Presumptive negative 12/16/18 00:01 Ur Barbiturates Screen Presumptive negative 12/16/18 00:01 Ur Phencyclidine Scrn Presumptive negative 12/16/18 00:01 Ur Amphetamines Screen Presumptive negative 12/16/18 00:01 U Benzodiazepines Scrn Presumptive negative 12/16/18 00:01 Presumptive negative 12/16/18 00:01 U Marijuana (THC) Screen Presumptive negative 12/16/18 00:01 Disclamer 12/16/18 00:01 Blood Type O POSITIVE 12/15/18 23:10 Antibody Screen Negative 12/15/18 23:10 Crossmatch See Detail 12/15/18 23:10 Active Medications - Current Medications Current Medications: Generic Name Dose Route Start Last Admin Trade Name Freq PRN Reason Stop Dose Admin Acetaminophen 650 mg 12/16/18 01:40 12/17/18 21:42 Tylenol PO 650 mg Q4H PRN Administration Pain MILD(1-3)/Fever >100.5/STEARNS Dextrose 50 ml 12/16/18 01:40 D50w (25gm) Syringe IV PRN PRN Hypoglycemia Enoxaparin Sodium 40 mg 12/16/18 22:00 12/17/18 21:42 Lovenox SUB-Q 40 mg QDAY@2200 ADDI Administration Sodium Chloride 500 mls @ 100 mls/hr 12/16/18 05:00 12/16/18 05:10 Nacl 0.9% 500 Ml IV 100 mls/hr DIRECT ADDI Administration Piperacillin Sod/Tazobactam Sod 4.5 gm in 100 mls @ 200 mls/hr 12/16/18 14:00 12/18/18 05:46 Zosyn/Ns 4.5gm/100ml IV 200 mls/hr Q8HR ADDI Administration Potassium Chloride/Sodium Chloride 20 meq in 1,000 mls @ 42 mls/hr 12/17/18 10:00 12/17/18 11:20 Ns/Kcl 20meq IV 42 mls/hr DIRECT ADDI Administration Vancomycin HCl 750 mg/ Sodium 265 mls @ 176.667 mls/hr 12/17/18 11:00 12/17/18 23:47 Chloride IV 176.667 mls/hr Q12H ADDI Administration Metronidazole 500 mg in 100 mls @ 100 mls/hr 12/18/18 08:00 Flagyl 500 Mg/100 Ml IV Q8HR ADDI Protocol Insulin Human Lispro 0 unit 12/16/18 07:30 12/17/18 22:38 Humalog SUB-Q Not Given ACHS [facility] Protocol Ondansetron HCl 4 mg 12/16/18 01:40 Zofran IV Q8H PRN Nausea And Vomiting Sodium Chloride 10 ml 12/16/18 10:00 12/17/18 21:42 Sodium Chloride Flush Syringe 10 Ml IV 10 ml BID ADDI Administration Sodium Chloride 10 ml 12/16/18 01:40 12/16/18 05:11 Sodium Chloride Flush Syringe 10 Ml IV 10 ml PRN PRN Administration LINE FLUSH Nutrition/Malnutrition Assess - Dietary Evaluation Nutrition/Malnutrition Findings: Nutrition Notes Start: 12/17/18 14:52 Freq: Status: Active Protocol: Document 12/17/18 14:52 RM (Rec: 12/17/18 14:54 RM [email or web address]) Nutrition Notes Need for Assessment generated from: MST Initial or Follow up Brief Note Current Diagnosis Diabetes,Heart Failure Other Pertinent Diagnosis Liver mass, ?? liver disease Current Diet Cardiac/Consistent CHO Subjective/Other Information Screened for malnutrition. Pt not in room at time of visit. Recored PO intake 92% X 3 meals. Nutrition Intervention Follow-Up By: 12/18/18 Additional Comments Follow for malnutrition assessment
[2018-12-18] MEDS: HumaLOG SUB-Q SCH ×2 (08:28→12:13)
--- NOTE | 2018-12-18 10:19 | Discharge Summary ---
Providers - Providers Date of Admission: 12/16/18 02:06 Attending physician: TONY BLISS MD 12/16/18 01:40 Consult to Physician [CONS] Routine Comment: Dr. Veliz saw patient @ 08:15am- [facility] Consulting Provider: RUSH VELIZ Physician Instructions: Reason For Exam: liver mass seen on US, remote hx hep c 12/16/18 03:38 Consult to Physician [CONS] Routine Comment: Consulting Provider: LANG BRICE Physician Instructions: Reason For Exam: 8cm rt lobe liver mass seen on CT 12/17/18 09:35 Consult to Dietitian/Nutrition [CONS] Routine Physician Instructions: Reason For Exam: Reason for Consult: Malnutrition 12/17/18 09:37 Consult to Physician [CONS] Routine Comment: Consulting Provider: MORAIMA DEL CID Physician Instructions: Reason For Exam: SEPSIS 12/17/18 17:38 Consult to Interventional Radiology [CONS] Urgent Consulting Provider: PEDRO PABLO SERRA Reason For Exam: hepatic abscess Notified:: no 12/18/18 07:56 Consult to Physician [CONS] Routine Comment: Consulting Provider: MANNIE GALINDO Physician Instructions: Reason For Exam: sepsis Primary care physician: ANDRADE JOSHI Hospitalization Condition: Serious Hospital course: 43-year-old woman, Turkish speaking. Presented to the hospital with generalized weakness, generalized edema. Past medical history; insulin-dependent diabetes, Liver abscess/severe sepsis It is a multiloculated abscess, planned for transfer to [place] for partial liver resection on Wednesday Continue antibiotics, ID consult add flagyl to cover for hepatic parasites Hep C antibody positive Viral load was negative in August 2018, GI input appreciated, it is likely a false positive, follow-up hepatitis B serology Acute on chronic anemia Likely anemia of chronic disease/due to sepsis, status post 1 unit PRBC Insulin-dependent diabetes Continue insulin coverage DVT prophylaxis with Lovenox Disposition: DC/TX-02 SHRT-TRM GEN HOSP IP Time spent for discharge: 33 mins Core Measure Documentation - Palliative Care Palliative Care/ Comfort Measures: Not Applicable - Core Measures Any of the following diagnoses?: none Exam - Physical Exam Narrative exam: General.: Appears well, no distress, nontoxic HEENT: Moist mucous membranes, extraocular muscles intact, no lymphadenopathy Neck: supple Cardiac: S1-S2 heard Lungs: clear to auscultation bilaterally Abdomen: soft , right upper quadrant is tender, nondistended, bowel sounds positive Extremities: no edema clubbing or cyanosis Skin: no rash or lesions Neurologic: no gross focal deficits Psych: calm, and cooperative - Constitutional Vitals: Temp Pulse Resp BP Pulse Ox 98.1 F 80 18 103/61 98 12/18/18 04:22 12/18/18 04:22 12/18/18 04:22 12/18/18 04:22 12/18/18 04:22 Plan Follow up with: ADNRADE JOSHI MD [Primary Care Provider] - 3-5 Days
[2018-12-18] MEDS: SODIUM CHLORIDE FLUSH SYRINGE 10 ML IV SCH (10:48)
[2018-12-18] MEDS: VANCOMYCIN 750 MG in NACL 0.9% 250ML 250 ML IV SCH (10:48)
--- NOTE | 2018-12-18 10:49 | Consultation ---
History of Present Illness - Reason for Consult Consult date: 12/18/18 Sepsis Requesting physician: AYAH ARANGO - History of Present Illness This patient is a 43-year-old female with a past medical history of insulin-dependent diabetes and questionable history of liver disease that presents to the ED on 12/15/18 with bilateral lower extremity edema , chest pain, SOB and generalized weakness. Patient states, via interpretation from , that she has been unable to lift her children and perform household chore because of lower extremity swelling over the past week. Patients primary language is Lithuanian. . On admission, WBC 9.0, Creatinine 0.2, AST 32, ALT 19, ALP 251, Temperature 98.2,, HR 95, BP 113/68. U/A w/o pyuria. CXR shows no consolidation. Abdomen and pelvis CT show 8cm mass in the right lobe of the liver. Pancreas containing calcification which could be due to chronic pancreatitis. Blood cultures show no growth. Review of Systems: General: + fever, no chills, nightsweats, unintentional weight change, or change in appetite Cutaneous: no rash, pruritus Head: no headaches or injury Eyes: no changes in vision, eye pain, double vision Ears: no ear pain, ear discharge, ringing or hearing loss Nose: no nose bleeding, stuffiness Mouth & throat: no bleeding gums, no horseness, no dental problems, or swollen glands Neck: no pain, node enlargement/lumps, tyroid enlargement or tenderness Respiratory: no cough, wheezing, sputum, hemoptysis, pleuritic chest pain Cardiovascular: no chest pain, leg edema, cyanosis, GANDHI, orthopnea Musculoskeletal: no decreased joint motion, bone or joint pain, joint swelling, muscle aches Gastrointestinal: + RUQ pain and tenderness. no nausea, vomiting, hematemesis, diarrhea, constipation, melena, bright red blood in stools, fecal incontinence, jaundice Genitourinary/Reproductive: no frequent urination, no dysuria, hematuria, incontinence Neurogical: no seizures, no headaches, no weakness, no paresthesias, no loss of speech or vision; no memory loss, no vertigo, no tremors, no numbness Psychiatric: stable mood; no excessive anxiety, sadness or moodiness Past History Past Medical History: diabetes (insulin-dependent), liver disease (purulent liver disease requiring surgery at age 20 in [place]) Past Surgical History: Other (right leg fracture) Social history: , other (never smoker) Family history: no significant family history Medications and Allergies Allergies Allergy/AdvReac Type Severity Reaction Status Date / Time No Known Allergies Allergy Unverified 01/21/16 09:19 Home Medications Medication Instructions Recorded Confirmed Last Taken Type Insulin Lispro [HumaLOG VIAL] 0 units SQ AC #1 vial 06/16/18 08/20/18 08/19/18 Rx Active Meds: Active Medications Acetaminophen (Tylenol) 650 mg PO Q4H PRN PRN Reason: Pain MILD(1-3)/Fever >100.5/STEARNS Last Admin: 12/17/18 21:42 Dose: 650 mg Documented by: Dextrose (D50w (25gm) Syringe) 50 ml IV PRN PRN PRN Reason: Hypoglycemia Enoxaparin Sodium (Lovenox) 40 mg SUB-Q QDAY@2200 ADDI Last Admin: 12/17/18 21:42 Dose: 40 mg Documented by: Sodium Chloride (Nacl 0.9% 500 Ml) 500 mls @ 100 mls/hr IV DIRECT ADDI Last Admin: 12/16/18 05:10 Dose: 100 mls/hr Documented by: Piperacillin Sod/Tazobactam Sod (Zosyn/Ns 4.5gm/100ml) 4.5 gm in 100 mls @ 200 mls/hr IV Q8HR ADDI Last Admin: 12/18/18 05:46 Dose: 200 mls/hr Documented by: Potassium Chloride/Sodium Chloride (Ns/Kcl 20meq) 20 meq in 1,000 mls @ 42 mls/hr IV DIRECT ADDI Last Admin: 12/17/18 11:20 Dose: 42 mls/hr Documented by: Vancomycin HCl 750 mg/ Sodium (Chloride) 265 mls @ 176.667 mls/hr IV Q12H ADDI Last Admin: 12/17/18 23:47 Dose: 176.667 mls/hr Documented by: Metronidazole (Flagyl 500 Mg/100 Ml) 500 mg in 100 mls @ 100 mls/hr IV Q8HR [facility]; Protocol Last Admin: 12/18/18 08:28 Dose: 100 mls/hr Documented by: Insulin Human Lispro (Humalog) 0 unit SUB-Q ACHS ADDI; Protocol Last Admin: 12/18/18 08:28 Dose: Not Given Documented by: Ondansetron HCl (Zofran) 4 mg IV Q8H PRN PRN Reason: Nausea And Vomiting Sodium Chloride (Sodium Chloride Flush Syringe 10 Ml) 10 ml IV BID ADDI Last Admin: 12/17/18 21:42 Dose: 10 ml Documented by: Sodium Chloride (Sodium Chloride Flush Syringe 10 Ml) 10 ml IV PRN PRN PRN Reason: LINE FLUSH Last Admin: 12/16/18 05:11 Dose: 10 ml Documented by: Physical Examination - Physical Exam Narrative exam: Constitutional: Alert, cooperative. RUQ pain - 8/10 Head, Ears, Nose: Normocephalic, atraumatic. External ears, nose normal Eyes: Conjunctivae/corneas clear. No icterus. No ptosis. Neck: Supple, no meningeal signs Oral: dentition poor. No thrush Cardiovascular: S1, S2 normal. Respiratory: Good air entry, clear to auscultation bilaterally GI: RUQ pain and tenderness. bowel sounds hypoactive. . No peritoneal signs Musculoskeletal: No pedal edema, no cyanosis. Skin: No rash or abscess Hem/Lymphatic: No palpable cervical or supraclavicular nodes. No lymphangitis Psych: Mood ok. Affect normal Neurological: Awake, alert, oriented. - Constitutional Vitals: Vital Signs Temp Pulse Resp BP Pulse Ox 98.1 F 80 18 103/61 98 12/18/18 04:22 12/18/18 04:22 12/18/18 04:22 12/18/18 04:22 12/18/18 04:22 Temperature -Last 24 Hours Temperature 98.1 F Temperature 101.6 F Temperature 98.0 F Temperature 98.2 F Results - Labs CBC & Chem 7: 12/18/18 04:19 12/18/18 04:19 Labs: Abnormal lab results 12/17/18 12/17/18 12/18/18 Range/Units 11:36 16:39 04:19 WBC 14.2 H (4.5-11.0) K/mm3 RBC 2.86 L (3.65-5.03) M/mm3 Hgb 9.0 L (10.1-14.3) gm/dl Hct 26.9 L (30.3-42.9) % RDW 15.6 H (13.2-15.2) % Plt Count 130 L (140-440) K/mm3 Sodium (137-145) mmol/L BUN (7-17) mg/dL Creatinine (0.7-1.2) mg/dL Glucose (65-100) mg/dL POC Glucose 172 H 171 H (70-105) Calcium (8.4-10.2) mg/dL Alkaline Phosphatase (35-129) units/L Total Protein (6.3-8.2) g/dL Albumin (3.9-5) g/dL 12/18/18 Range/Units 04:19 WBC (4.5-11.0) K/mm3 RBC (3.65-5.03) M/mm3 Hgb (10.1-14.3) gm/dl Hct (30.3-42.9) % RDW (13.2-15.2) % Plt Count (140-440) K/mm3 Sodium 136 L (137-145) mmol/L BUN 5 L (7-17) mg/dL Creatinine 0.2 L (0.7-1.2) mg/dL Glucose 119 H (65-100) mg/dL POC Glucose (70-105) Calcium 7.2 L (8.4-10.2) mg/dL Alkaline Phosphatase 251 H (35-129) units/L Total Protein 5.1 L (6.3-8.2) g/dL Albumin 1.6 L (3.9-5) g/dL - Imaging and Cardiology Chest x-ray: report reviewed (no consolidation) CT scan - abdomen: report reviewed ( 8 cm mass in the right lobe of the liver. There may be oher small low-density lesions in the liver as well.) CT scan - chest: report reviewed (:No CT evidence for pulmonary embolism. Small right pleural effusion and right hepatic mass with smaller satellite metastases within right hepatic lobe ) MRI - abdomen: report reviewed (7.4 x5.7 x7.8cm predominatly cystic mass in the right hepatic lobe. THis may represent a hepatic abscess. Cystic neoplasm is no entirely excluded. No cirrhotic changes in the liver. Chronic pancreatitis.) Assessment and Plan Cultures: blood: no growth to date 12/16/2018 MRSA PCR: in progress A/P: 43-year-old female with a past medical history of insulin-dependent diabetes and questionable history of liver disease that presents to the ED on 12/15/18 with bilateral lower extremity edema , chest pain, SOB and generalized weakness. 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 Patients primary language is Lithuanian. Admitted with: 1. Sepsis: not on admission, evidenced by leukocytois, fever and elevated lactic acid. Etiology most likely 8 CM hepatic abscess. . CXR no consolidation. Blood cultures show no growth. Currently being treated with Vancomycin, Zosyn and Flagyl. 2. Multiloculated Hepatic Mass: Abdomen and pelvis CT show 8 cm mass in the right lobe of the liver. Abdominal MRI is concerning for cystic neoplasm. Per Dr. Crocker the Multiloculated nature will make percutaneous drainage limited , Likely transfer to [place] for Hepatic resection. 3. Hep C antibody positive 4. Type 2 insulin-dependent diabetes 5. Acute on chronic anemia Recommendations: -Continue Vancomycin, Flagyl -Add Cefepime -Discontinue Zosyn -Follow-up blood cultures -Follow-up Histopath results to see if amebic abscess vs malignancy [facility] M: [phone] O:[phone]
[2018-12-18 11:53] VITALS: BP 98/56
== END 2018-12-18 12:35 | disposition short-term general hospital (02) | DRG 441 ==
LOC: ED 22:05 → 3A 12-16 02:06
PROVIDERS: ADMIT Internal Medicine; ATTEND Internal Medicine
PROC: 30233N1 Transfusion of Nonautologous Red Blood Cells into Peripheral Vein, Percutaneous Approach (ICD-10-PCS; principal; 2018-12-16)
PROC: 3E0234Z Introduction of Serum, Toxoid and Vaccine into Muscle, Percutaneous Approach (ICD-10-PCS; 2018-12-16)
DX: K75.0 Abscess of liver (principal); A41.9 Sepsis, unspecified organism; E43 Unspecified severe protein-calorie malnutrition; R65.20 Severe sepsis without septic shock; E87.2 Acidosis; D68.9 Coagulation defect, unspecified; I47.2 Ventricular tachycardia; R16.0 Hepatomegaly, not elsewhere classified; E11.9 Type 2 diabetes mellitus without complications; B19.20 Unspecified viral hepatitis C without hepatic coma; D63.8 Anemia in other chronic diseases classified elsewhere; D69.6 Thrombocytopenia, unspecified; Z68.20 Body mass index [BMI] 20.0-20.9, adult; Z79.4 Long term (current) use of insulin
CPT/HCPCS: 36415; 71046; 71275; 74177; 74183; 76705; 80048; 80053; 80076; 80307; 81001; 82106; 82140; 82378; 82550; 82553; 82962; 83036; 83735; 83880; 84439; 84443; 84484; 84703; 85025; 85027; 85610; 85730; 86301; 86705; 86850; 86900; 86901; 86920; 87040; 87116; 90732; 93005; 93010; 93306; 96374; G0378; A9577; J1650; J1815; J2543; J3370; J7040; J7050; P9016; Q9967

== ENCOUNTER 2019-01-18 05:10 | Emergency (ER) | payer OTHER ==
[2019-01-18] MEDS ORDERED: HALDOL IM STA (05:17)
[2019-01-18] MEDS ORDERED: ATIVAN IM PRN (05:17)
[2019-01-18] MEDS ORDERED: ATIVAN ONE (05:19)
[2019-01-18] MEDS ORDERED: HALDOL ONE (05:20)
--- NOTE | 2019-01-18 05:20 | Event Note ---
Date: 01/18/19 Medical screening examination This is a 43-year-old female, history of admission to this hospital, history of presumed hepatic abscess, hepatitis C, acute on chronic anemia, insulin, Niuean speaking who is brought to the hospital by emergency medical services after altered mental status and agitated delirium behavior. Accu-Chek pending. Upon arrival to the ER, patient screaming and flailing around. As per , he is worried that she might be in a coma. Apparently, patient had her procedure done at [facility]. Screening laboratory studies, CT scan of the brain, CT scan of the abdomen and pelvis ordered. Patient acutely agitated, therefore, required chemical D escalation with haloperidol and Ativan for her safety and for staff safety. Patient this point in time appears to be disorganized, delirious, does not exhibit decision-making capacity, and is clearly a danger to herself.
[2019-01-18 06:17] LABS: Hematocrit 29.5 % (30.3-42.9); Mean Corpuscular HGB Conc 34 % (30-34); Mean Corpuscular Volume 107 fl (79-97); Red Blood Count 2.76 M/mm3 (3.65-5.03)
[2019-01-18 06:23] LABS: Platelet Count 69 K/mm3 (140-440); Red Cell Distribution Width 25.2 % (13.2-15.2)
[2019-01-18 06:23] LABS: Bilirubin,Urine NEG (Negative); Blood,Urine NEG (Negative); Color,Urine Yellow (Yellow); Mucus,Urine FEW /HPF; Protein,Urine <15 mg/dL mg/dL (Negative); RBC,Urine < 1.0 /HPF (0.0-6.0); Urobilinogen,Urine < 2.0 mg/dL (<2.0); WBC,Urine < 1.0 /HPF (0.0-6.0)
[2019-01-18 06:30] LABS: INR 1.39 (0.87-1.13)
[2019-01-18 06:31] LABS: Partial Thromboplastin Time 30.5 Sec. (24.2-36.6)
[2019-01-18] MEDS ORDERED: NACL 0.9% 1000 ML 1,000 ML IV ONE ×2 (06:31→09:35)
--- NOTE | 2019-01-18 06:42 | Cat Scan Report ---
CT HEAD WITHOUT CONTRAST INDICATION / CLINICAL INFORMATION: Altered Mental Status. TECHNIQUE: All CT scans at this location are performed using CT dose reduction for ALARA by means of automated e xposure control. COMPARISON: Head CT 11/18/2018 FINDINGS: HEMORRHAGE: None. EXTRA-AXIAL SPACES: Normal in size and morphology for the patient's age. VENTRICULAR SYSTEM: Normal in size and morphology for the patient's age. CEREBRAL PARENCHYMA: Dense bilateral idiopathic basal ganglia calcifications, unchanged. No significa nt abnormality. No acute territorial infarct. MIDLINE SHIFT OR HERNIATION: None. CEREBELLUM / BRAINSTEM: No significant abnormality. ORBITS: Normal as visualized. SOFT TISSUES of HEAD: No significant abnormality. CALVARIUM: No significant abnormality. PARANASAL SINUSES / MASTOID AIR CELLS: Normal as visualized. ADDITIONAL FINDINGS: None. IMPRESSION: 1. No acute intracranial abnormality. 2. Bilateral idiopathic basal ganglia calcifications, unchanged. Signer Name: Tucker Kasper MD Signed: 01/18/2019 6:38 AM Workstation Name: [id number]
[2019-01-18 06:44] LABS: Alanine Aminotransferase 27 units/L (7-56); Albumin 3.7 g/dL (3.9-5); BUN/Creatinine Ratio 30; Blood Urea Nitrogen 18 mg/dL (7-17); Calcium 9.8 mg/dL (8.4-10.2); Hemolysis Index 4
--- NOTE | 2019-01-18 06:46 | XRay Report ---
CHEST 1 VIEW 01/18/2019 5:52 AM INDICATION / CLINICAL INFORMATION: Altered Mental Status. COMPARISON: Chest x-ray 12/16/2018 FINDINGS: SUPPORT DEVICES: None. HEART / MEDIASTINUM: No significant abnormality. LUNGS / PLEURA: No significant pulmonary or pleural abnormality. No pneumothorax. ADDITIONAL FINDINGS: Old healed left midclavicular fracture deformity, unchanged. IMPRESSION: 1. No acute findings. Signer Name: Tucker Kasper MD Signed: 01/18/2019 6:42 AM Workstation Name: [employer]
[2019-01-18] MEDS ORDERED: NACL 0.9% 1000 ML IV ONE (07:04)
--- NOTE | 2019-01-18 07:06 | Cat Scan Report ---
CT ABDOMEN AND PELVIS WITHOUT CONTRAST INDICATION: MAIN: ALTERED MENTAL STATUS. s/p liver biopsy vs resection. TECHNIQUE: Axial CT images were obtained through the abdomen and pelvis without IV contrast. All CT scans at [facility] location are performed using CT dose reduction for ALARA by means of automated exposure control. COMPARISON: CT abdomen and pelvis 12/16/2018 FINDINGS: LOWER CHEST: No significant abnormality. LIVER: The right hepatic lobe has been resected since prior study. GALLBLADDER: Has been resected since prior study. BILE DUCTS: No significant abnormality. PANCREAS: Chronic calcific pancreatitis and moderate pancreatic atrophy, unchanged. SPLEEN: Remains mildly enlarged ADRENALS: No significant abnormality. RIGHT KIDNEY and URETER: No significant abnormality. LEFT KIDNEY and URETER: No significant abnormality. STOMACH and SMALL BOWEL: Stomach is distended with moderate amount of food particles/debris. Small archie wel is mildly distended with moderate amount of small bowel feces characteristic for small bowel slow transit time. No transition point to suggest bowel obstruction. COLON: Moderate amount of stool characteristic for constipation. APPENDIX: Normal. PERITONEUM: No free fluid. No free air. No fluid collection. LYMPH NODES: No significant adenopathy. AORTA and ARTERIES: No significant abnormality. IVC and VEINS: No significant abnormality. URINARY BLADDER: Several tiny bubbles of nondependent gas within urinary bladder likely secondary to recent instrumentation. REPRODUCTIVE ORGANS: Intrauterine device in expected position ADDITIONAL FINDINGS: Soft tissue gas within the right vastus lateralis muscle with 1.5 cm fluid colle ction characteristic for abscess. 3 cm loculated fluid collection containing gas bubbles within the l eft rectus femoris muscle characteristic for intramuscular abscess/myositis. SKELETAL SYSTEM: No significant abnormality. IMPRESSION: 1. Focal intramuscular abscesses containing bubbles of gas within left rectus femoris muscle and christina cent fascial planes and right vastus lateralis muscle. Recommend bilateral lower extremity CT prefera francheska with contrast for further evaluation. 2. Interval right hepatectomy with small amount of fluid in the right subdiaphragmatic space. No drai nable fluid collection/residual intra-abdominal abscess. 3 constipation with large amount of debris/food particles within mildly distended stomach and small b owel characteristic for slow small bowel transit. 4. Chronic calcific pancreatitis and mild splenomegaly, unchanged. Signer Name: Tucker Kasper MD Signed: 01/18/2019 7:02 AM Workstation Name: [employer]
[2019-01-18] MEDS ORDERED: CEPHULAC PR NR (07:09)
[2019-01-18] MEDS ORDERED: HumuLIN R IV ONE (07:12)
--- NOTE | 2019-01-18 07:19 | Emergency Department Report ---
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 Patient was recently admitted here December 16 until December 18 for a hepatic abscess. She was treated with vancomycin, Flagyl, and cefepime as per ID recommendation. Patient was then transferred to [facility] at the [facility] hepatic resection. As per patient has not been eating much for several days. At 1 a.m. she she broke up acutely confused, agitated, and yelling. states she's had the same in the past when her sugar was too high or too low. Patient was acutely agitated, disorganized, and delirious upon arrival. Patient received Haldol 2.5 mg and Ativan 2 mg IM after medical screening exam. She is sedated at time of my evaluation. Patient was discharged from [facility] on January 14 - Related Data Previous Rx's Medication Instructions Recorded Last Taken Type Insulin Lispro [HumaLOG VIAL] 0 units SQ AC #1 vial 06/16/18 08/19/18 Rx Allergies Allergy/AdvReac Type Severity Reaction Status Date / Time No Known Allergies Allergy Unverified 01/21/16 09:19 ED Review of Systems ROS: Stated complaint: AMS Other details as noted in HPI Comment: All other systems reviewed and negative ED Past Medical Hx - Past Medical History Hx Hypertension: No Hx Congestive Heart Failure: No Hx Diabetes: Yes Hx Deep Vein Thrombosis: No Hx Liver Disease: Yes Hx Renal Disease: No Hx Sickle Cell Disease: No Hx Seizures: No Hx Asthma: No Hx COPD: No Hx HIV: No - Surgical History Additional Surgical History: right leg fracture repair - Social History Smoking Status: Never Smoker - Medications Home Medications: Home Medications Medication Instructions Recorded Confirmed Last Taken Type Insulin Lispro [HumaLOG VIAL] 0 units SQ AC #1 vial 06/16/18 08/20/18 08/19/18 Rx ED Physical Exam - General Limitations: Language Barrier, Altered Mental Status - Other Other exam information: Normal: Sedated Head: Atraumatic Eyes: Normal appearance, pupils equally reactive to light ENT: Dry mucous membranes Neck: Normal appearance, supple Chest: Clear to auscultation bilaterally, no wheezes, rales, crackles Cardiovascular: Mild tachycardia regular rhythm Abdomen: Right upper quadrant surgical scar noted. No skin erythema or warmth. Abdomen nondistended. No grimace on palpation however, the patient is sedated Back: Normal inspection Extremity: Normal appearance, no edema Neuro: Sedated, withdraws from painful stimuli Skin: No rash ED Course Vital Signs 01/18/19 01/18/19 01/18/19 05:35 05:36 06:37 Temperature 99.0 F Pulse Rate 127 H 110 H Respiratory 20 20 18 Rate Blood Pressure 105/48 110/60 Blood Pressure [Left] O2 Sat by Pulse 100 Oximetry 01/18/19 01/18/19 01/18/19 07:00 07:30 08:00 Temperature Pulse Rate 101 H 102 H 116 H Respiratory 16 17 14 Rate Blood Pressure 129/72 130/89 Blood Pressure [Left] O2 Sat by Pulse 99 Oximetry 01/18/19 09:59 Temperature Pulse Rate 110 H Respiratory 16 Rate Blood Pressure Blood Pressure 138/89 [Left] O2 Sat by Pulse 100 Oximetry - Reevaluation(s) Reevaluation #1: 01/18/19 08:[address] extermities with contrast requested. left the department and pt can not consent. Pt has had contrast exposure in past. no reported allergy. - Consultations Consultation #1: 01/18/19 07:36 case d/w Dr quincy blood surgery, request attempted transfer to [facility] 01/18/19 07:56 case d/w [facility] transfer service, no record of pt visit. facesheet faxed. will obtain ct extremity prior to call back 01/18/19 08:[address] Mariscal with [facility] 01/18/19 08:52 Patient has been accepted by hepatobiliary surgeon Dr. Alvarado Alexander and partnership marketing manager Dr. Tesfaye transferred to [facility] ICU. Awaiting that aside - Lab Data Result diagrams: 01/18/19 05:50 01/18/19 05:50 Lab Results 01/18/19 01/18/19 01/18/19 Range/Units 05:25 05:44 05:50 WBC (4.5-11.0) K/mm3 RBC (3.65-5.03) M/mm3 Hgb (10.1-14.3) gm/dl Hct (30.3-42.9) % MCV (79-97) fl MCH (28-32) pg MCHC (30-34) % RDW (13.2-15.2) % Plt Count (140-440) K/mm3 Add Manual Diff Total Counted Seg Neuts % (Manual) (40.0-70.0) % Band Neutrophils % % Lymphocytes % (Manual) (13.4-35.0) % Reactive Lymphs % (Man) % Monocytes % (Manual) (0.0-7.3) % Eosinophils % (Manual) (0.0-4.3) % Basophils % (Manual) (0.0-1.8) % Metamyelocytes % % Myelocytes % % Promyelocytes % % Blast Cells % % Nucleated RBC % Seg Neutrophils # Man (1.8-7.7) K/mm3 Band Neutrophils # K/mm3 Lymphocytes # (Manual) (1.2-5.4) K/mm3 Abs React Lymphs (Man) K/mm3 Monocytes # (Manual) (0.0-0.8) K/mm3 Eosinophils # (Manual) (0.0-0.4) K/mm3 Basophils # (Manual) (0.0-0.1) K/mm3 Metamyelocytes # K/mm3 Myelocytes # K/mm3 Promyelocytes # K/mm3 Blast Cells # K/mm3 WBC Morphology Hypersegmented Neuts Hyposegmented Neuts Hypogranular Neuts Smudge Cells Toxic Granulation Toxic Vacuolation Dohle Bodies Pelger-Huet Anomaly Lesvia Rods Platelet Estimate Clumped Platelets Plt Clumps, EDTA Large Platelets Giant Platelets Platelet Satelliting Plt Morphology Comment RBC Morphology Dimorphic RBCs Polychromasia Hypochromasia Poikilocytosis Anisocytosis Microcytosis Macrocytosis Spherocytes Pappenheimer Bodies Sickle Cells Target Cells Tear Drop Cells Ovalocytes Helmet Cells Wei-Moca Bodies [place] Rings [place] Cells Bite Cells Crenated Cell Elliptocytes Acanthocytes (Spur) Rouleaux Hemoglobin C Crystals Schistocytes Malaria parasites Santosh Bodies Hem Pathologist Commnt PT (12.2-14.9) Sec. INR (0.87-1.13) APTT (24.2-36.6) Sec. Sodium (137-145) mmol/L Potassium (3.6-5.0) mmol/L Chloride (98-107) mmol/L Carbon Dioxide (22-30) mmol/L Anion Gap mmol/L BUN (7-17) mg/dL Creatinine (0.7-1.2) mg/dL Estimated GFR ml/min BUN/Creatinine Ratio % Glucose (65-100) mg/dL POC Glucose 273 H (70-105) Lactic Acid 10.70 H* (0.7-2.0) mmol/L Calcium (8.4-10.2) mg/dL Magnesium (1.7-2.3) mg/dL Total Bilirubin (0.1-1.2) mg/dL AST (5-40) units/L ALT (7-56) units/L Alkaline Phosphatase (35-129) units/L Ammonia (25-60) umol/L Total Creatine Kinase (30-135) units/L Total Protein (6.3-8.2) g/dL Albumin (3.9-5) g/dL Albumin/Globulin Ratio % TSH (0.270-4.200) mlU/mL HCG, Quant (0-4) mIU/mL Urine Color Yellow (Yellow) Urine Turbidity Clear (Clear) Urine pH 7.0 (5.0-7.0) Ur Specific [place] 1.008 (1.003-1.030) Urine Protein <15 mg/dl (Negative) mg/dL Urine Glucose (UA) 50 (Negative) mg/dL Urine Ketones Neg (Negative) mg/dL Urine Blood Neg (Negative) Urine Nitrite Neg (Negative) Urine Bilirubin Neg (Negative) Urine Urobilinogen < 2.0 (<2.0) mg/dL Ur Leukocyte Esterase Neg (Negative) Urine WBC (Auto) < 1.0 (0.0-6.0) /HPF Urine RBC (Auto) < 1.0 (0.0-6.0) /HPF Urine Mucus Few /HPF Salicylates (2.8-20.0) mg/dL Acetaminophen (10.0-30.0) ug/mL Plasma/Serum Alcohol (0-0.07) % Blood Type Antibody Screen 01/18/19 01/18/19 01/18/19 Range/Units 05:50 05:50 05:50 WBC 3.4 L (4.5-11.0) K/mm3 RBC 2.76 L (3.65-5.03) M/mm3 Hgb 10.0 L (10.1-14.3) gm/dl Hct 29.5 L (30.3-42.9) % MCV 107 H (79-97) fl MCH 36 H (28-32) pg MCHC 34 (30-34) % RDW 25.2 H (13.2-15.2) % Plt Count 69 L (140-440) K/mm3 Add Manual Diff Complete Total Counted 100 Seg Neuts % (Manual) 67.0 (40.0-70.0) % Band Neutrophils % 0 % Lymphocytes % (Manual) 30.0 (13.4-35.0) % Reactive Lymphs % (Man) 0 % Monocytes % (Manual) 2.0 (0.0-7.3) % Eosinophils % (Manual) 1.0 (0.0-4.3) % Basophils % (Manual) 0 (0.0-1.8) % Metamyelocytes % 0 % Myelocytes % 0 % Promyelocytes % 0 % Blast Cells % 0 % Nucleated RBC % Not Reportable Seg Neutrophils # Man 2.3 (1.8-7.7) K/mm3 Band Neutrophils # 0.0 K/mm3 Lymphocytes # (Manual) 1.0 L (1.2-5.4) K/mm3 Abs React Lymphs (Man) 0.0 K/mm3 Monocytes # (Manual) 0.1 (0.0-0.8) K/mm3 Eosinophils # (Manual) 0.0 (0.0-0.4) K/mm3 Basophils # (Manual) 0.0 (0.0-0.1) K/mm3 Metamyelocytes # 0.0 K/mm3 Myelocytes # 0.0 K/mm3 Promyelocytes # 0.0 K/mm3 Blast Cells # 0.0 K/mm3 WBC Morphology Not Reportable Hypersegmented Neuts Not Reportable Hyposegmented Neuts Not Reportable Hypogranular Neuts Not Reportable Smudge Cells Not Reportable Toxic Granulation Not Reportable Toxic Vacuolation Not Reportable Dohle Bodies Not Reportable Pelger-Huet Anomaly Not Reportable Lesvia Rods Not Reportable Platelet Estimate Consistent w auto Clumped Platelets Not Reportable Plt Clumps, EDTA Not Reportable Large Platelets Not Reportable Giant Platelets Not Reportable Platelet Satelliting Not Reportable Plt Morphology Comment Not Reportable RBC Morphology Not Reportable Dimorphic RBCs Not Reportable Polychromasia Few Hypochromasia Not Reportable Poikilocytosis Not Reportable Anisocytosis Not Reportable Microcytosis Not Reportable Macrocytosis Not Reportable Spherocytes Not Reportable Pappenheimer Bodies Not Reportable Sickle Cells Not Reportable Target Cells Not Reportable Tear Drop Cells Not Reportable Ovalocytes Few Helmet Cells Not Reportable Wei-Moca Bodies Not Reportable [place] Rings Not Reportable Gerald Cells Not Reportable Bite Cells Not Reportable Crenated Cell Not Reportable Elliptocytes Not Reportable Acanthocytes (Spur) Not Reportable Rouleaux Not Reportable Hemoglobin C Crystals Not Reportable Schistocytes Not Reportable Malaria parasites Not Reportable Santosh Bodies Not Reportable Hem Pathologist Commnt No PT 16.7 H (12.2-14.9) Sec. INR 1.39 H (0.87-1.13) APTT 30.5 (24.2-36.6) Sec. Sodium 137 (137-145) mmol/L Potassium 3.7 (3.6-5.0) mmol/L Chloride 95.8 L (98-107) mmol/L Carbon Dioxide 16 L (22-30) mmol/L Anion Gap 29 mmol/L BUN 18 H (7-17) mg/dL Creatinine 0.6 L (0.7-1.2) mg/dL Estimated GFR > 60 ml/min BUN/Creatinine Ratio 30 % Glucose 328 H (65-100) mg/dL POC Glucose (70-105) Lactic Acid (0.7-2.0) mmol/L Calcium 9.8 (8.4-10.2) mg/dL Magnesium (1.7-2.3) mg/dL Total Bilirubin 1.90 H (0.1-1.2) mg/dL AST 43 H (5-40) units/L ALT 27 (7-56) units/L Alkaline Phosphatase 160 H (35-129) units/L Ammonia (25-60) umol/L Total Creatine Kinase (30-135) units/L Total Protein 8.1 (6.3-8.2) g/dL Albumin 3.7 L (3.9-5) g/dL Albumin/Globulin Ratio 0.8 % TSH (0.270-4.200) mlU/mL HCG, Quant (0-4) mIU/mL Urine Color (Yellow) Urine Turbidity (Clear) Urine pH (5.0-7.0) Ur Specific [place] (1.003-1.030) Urine Protein (Negative) mg/dL Urine Glucose (UA) (Negative) mg/dL Urine Ketones (Negative) mg/dL Urine Blood (Negative) Urine Nitrite (Negative) Urine Bilirubin (Negative) Urine Urobilinogen (<2.0) mg/dL Ur Leukocyte Esterase (Negative) Urine WBC (Auto) (0.0-6.0) /HPF Urine RBC (Auto) (0.0-6.0) /HPF Urine Mucus /HPF Salicylates (2.8-20.0) mg/dL Acetaminophen (10.0-30.0) ug/mL Plasma/Serum Alcohol (0-0.07) % Blood Type Antibody Screen 01/18/19 01/18/19 01/18/19 Range/Units 05:50 05:50 05:50 WBC (4.5-11.0) K/mm3 RBC (3.65-5.03) M/mm3 Hgb (10.1-14.3) gm/dl Hct (30.3-42.9) % MCV (79-97) fl MCH (28-32) pg MCHC (30-34) % RDW (13.2-15.2) % Plt Count (140-440) K/mm3 Add Manual Diff Total Counted Seg Neuts % (Manual) (40.0-70.0) % Band Neutrophils % % Lymphocytes % (Manual) (13.4-35.0) % Reactive Lymphs % (Man) % Monocytes % (Manual) (0.0-7.3) % Eosinophils % (Manual) (0.0-4.3) % Basophils % (Manual) (0.0-1.8) % Metamyelocytes % % Myelocytes % % Promyelocytes % % Blast Cells % % Nucleated RBC % Seg Neutrophils # Man (1.8-7.7) K/mm3 Band Neutrophils # K/mm3 Lymphocytes # (Manual) (1.2-5.4) K/mm3 Abs React Lymphs (Man) K/mm3 Monocytes # (Manual) (0.0-0.8) K/mm3 Eosinophils # (Manual) (0.0-0.4) K/mm3 Basophils # (Manual) (0.0-0.1) K/mm3 Metamyelocytes # K/mm3 Myelocytes # K/mm3 Promyelocytes # K/mm3 Blast Cells # K/mm3 WBC Morphology Hypersegmented Neuts Hyposegmented Neuts Hypogranular Neuts Smudge Cells Toxic Granulation Toxic Vacuolation Dohle Bodies Pelger-Huet Anomaly Lesvia Rods Platelet Estimate Clumped Platelets Plt Clumps, EDTA Large Platelets Giant Platelets Platelet Satelliting Plt Morphology Comment RBC Morphology Dimorphic RBCs Polychromasia Hypochromasia Poikilocytosis Anisocytosis Microcytosis Macrocytosis Spherocytes Pappenheimer Bodies Sickle Cells Target Cells Tear Drop Cells Ovalocytes Helmet Cells Wei-Moca Bodies [place] Rings Gerald Cells Bite Cells Crenated Cell Elliptocytes Acanthocytes (Spur) Rouleaux Hemoglobin C Crystals Schistocytes Malaria parasites Santosh Bodies Hem Pathologist Commnt PT (12.2-14.9) Sec. INR (0.87-1.13) APTT (24.2-36.6) Sec. Sodium (137-145) mmol/L Potassium (3.6-5.0) mmol/L Chloride (98-107) mmol/L Carbon Dioxide (22-30) mmol/L Anion Gap mmol/L BUN (7-17) mg/dL Creatinine (0.7-1.2) mg/dL Estimated GFR ml/min BUN/Creatinine Ratio % Glucose (65-100) mg/dL POC Glucose (70-105) Lactic Acid (0.7-2.0) mmol/L Calcium (8.4-10.2) mg/dL Magnesium 1.90 (1.7-2.3) mg/dL Total Bilirubin (0.1-1.2) mg/dL AST (5-40) units/L ALT (7-56) units/L Alkaline Phosphatase (35-129) units/L Ammonia 207.0 H (25-60) umol/L Total Creatine Kinase 85 (30-135) units/L Total Protein (6.3-8.2) g/dL Albumin (3.9-5) g/dL Albumin/Globulin Ratio % TSH (0.270-4.200) mlU/mL HCG, Quant (0-4) mIU/mL Urine Color (Yellow) Urine Turbidity (Clear) Urine pH (5.0-7.0) Ur Specific [place] (1.003-1.030) Urine Protein (Negative) mg/dL Urine Glucose (UA) (Negative) mg/dL Urine Ketones (Negative) mg/dL Urine Blood (Negative) Urine Nitrite (Negative) Urine Bilirubin (Negative) Urine Urobilinogen (<2.0) mg/dL Ur Leukocyte Esterase (Negative) Urine WBC (Auto) (0.0-6.0) /HPF Urine RBC (Auto) (0.0-6.0) /HPF Urine Mucus /HPF Salicylates (2.8-20.0) mg/dL Acetaminophen (10.0-30.0) ug/mL Plasma/Serum Alcohol < 0.01 (0-0.07) % Blood Type Antibody Screen 01/18/19 01/18/19 01/18/19 Range/Units 05:50 05:50 05:50 WBC (4.5-11.0) K/mm3 RBC (3.65-5.03) M/mm3 Hgb (10.1-14.3) gm/dl Hct (30.3-42.9) % MCV (79-97) fl MCH (28-32) pg MCHC (30-34) % RDW (13.2-15.2) % Plt Count (140-440) K/mm3 Add Manual Diff Total Counted Seg Neuts % (Manual) (40.0-70.0) % Band Neutrophils % % Lymphocytes % (Manual) (13.4-35.0) % Reactive Lymphs % (Man) % Monocytes % (Manual) (0.0-7.3) % Eosinophils % (Manual) (0.0-4.3) % Basophils % (Manual) (0.0-1.8) % Metamyelocytes % % Myelocytes % % Promyelocytes % % Blast Cells % % Nucleated RBC % Seg Neutrophils # Man (1.8-7.7) K/mm3 Band Neutrophils # K/mm3 Lymphocytes # (Manual) (1.2-5.4) K/mm3 Abs React Lymphs (Man) K/mm3 Monocytes # (Manual) (0.0-0.8) K/mm3 Eosinophils # (Manual) (0.0-0.4) K/mm3 Basophils # (Manual) (0.0-0.1) K/mm3 Metamyelocytes # K/mm3 Myelocytes # K/mm3 Promyelocytes # K/mm3 Blast Cells # K/mm3 WBC Morphology Hypersegmented Neuts Hyposegmented Neuts Hypogranular Neuts Smudge Cells Toxic Granulation Toxic Vacuolation Dohle Bodies Pelger-Huet Anomaly Lesvia Rods Platelet Estimate Clumped Platelets Plt Clumps, EDTA Large Platelets Giant Platelets Platelet Satelliting Plt Morphology Comment RBC Morphology Dimorphic RBCs Polychromasia Hypochromasia Poikilocytosis Anisocytosis Microcytosis Macrocytosis Spherocytes Pappenheimer Bodies Sickle Cells Target Cells Tear Drop Cells Ovalocytes Helmet Cells Wei-Moca Bodies [place] Rings [place] Cells Bite Cells Crenated Cell Elliptocytes Acanthocytes (Spur) Rouleaux Hemoglobin C Crystals Schistocytes Malaria parasites Santosh Bodies Hem Pathologist Commnt PT (12.2-14.9) Sec. INR (0.87-1.13) APTT (24.2-36.6) Sec. Sodium (137-145) mmol/L Potassium (3.6-5.0) mmol/L Chloride (98-107) mmol/L Carbon Dioxide (22-30) mmol/L Anion Gap mmol/L BUN (7-17) mg/dL Creatinine (0.7-1.2) mg/dL Estimated GFR ml/min BUN/Creatinine Ratio % Glucose (65-100) mg/dL POC Glucose (70-105) Lactic Acid (0.7-2.0) mmol/L Calcium (8.4-10.2) mg/dL Magnesium (1.7-2.3) mg/dL Total Bilirubin (0.1-1.2) mg/dL AST (5-40) units/L ALT (7-56) units/L Alkaline Phosphatase (35-129) units/L Ammonia (25-60) umol/L Total Creatine Kinase (30-135) units/L Total Protein (6.3-8.2) g/dL Albumin (3.9-5) g/dL Albumin/Globulin Ratio % TSH 7.000 H (0.270-4.200) mlU/mL HCG, Quant 1.05 (0-4) mIU/mL Urine Color (Yellow) Urine Turbidity (Clear) Urine pH (5.0-7.0) Ur Specific [place] (1.003-1.030) Urine Protein (Negative) mg/dL Urine Glucose (UA) (Negative) mg/dL Urine Ketones (Negative) mg/dL Urine Blood (Negative) Urine Nitrite (Negative) Urine Bilirubin (Negative) Urine Urobilinogen (<2.0) mg/dL Ur Leukocyte Esterase (Negative) Urine WBC (Auto) (0.0-6.0) /HPF Urine RBC (Auto) (0.0-6.0) /HPF Urine Mucus /HPF Salicylates < 0.3 L (2.8-20.0) mg/dL Acetaminophen (10.0-30.0) ug/mL Plasma/Serum Alcohol (0-0.07) % Blood Type Antibody Screen 01/18/19 01/18/19 01/18/19 Range/Units 05:50 06:00 07:08 WBC (4.5-11.0) K/mm3 RBC (3.65-5.03) M/mm3 Hgb (10.1-14.3) gm/dl Hct (30.3-42.9) % MCV (79-97) fl MCH (28-32) pg MCHC (30-34) % RDW (13.2-15.2) % Plt Count (140-440) K/mm3 Add Manual Diff Total Counted Seg Neuts % (Manual) (40.0-70.0) % Band Neutrophils % % Lymphocytes % (Manual) (13.4-35.0) % Reactive Lymphs % (Man) % Monocytes % (Manual) (0.0-7.3) % Eosinophils % (Manual) (0.0-4.3) % Basophils % (Manual) (0.0-1.8) % Metamyelocytes % % Myelocytes % % Promyelocytes % % Blast Cells % % Nucleated RBC % Seg Neutrophils # Man (1.8-7.7) K/mm3 Band Neutrophils # K/mm3 Lymphocytes # (Manual) (1.2-5.4) K/mm3 Abs React Lymphs (Man) K/mm3 Monocytes # (Manual) (0.0-0.8) K/mm3 Eosinophils # (Manual) (0.0-0.4) K/mm3 Basophils # (Manual) (0.0-0.1) K/mm3 Metamyelocytes # K/mm3 Myelocytes # K/mm3 Promyelocytes # K/mm3 Blast Cells # K/mm3 WBC Morphology Hypersegmented Neuts Hyposegmented Neuts Hypogranular Neuts Smudge Cells Toxic Granulation Toxic Vacuolation Dohle Bodies Pelger-Huet Anomaly Lesvia Rods Platelet Estimate Clumped Platelets Plt Clumps, EDTA Large Platelets Giant Platelets Platelet Satelliting Plt Morphology Comment RBC Morphology Dimorphic RBCs Polychromasia Hypochromasia Poikilocytosis Anisocytosis Microcytosis Macrocytosis Spherocytes Pappenheimer Bodies Sickle Cells Target Cells Tear Drop Cells Ovalocytes Helmet Cells Wei-Moca Bodies [place] Rings Gerald Cells Bite Cells Crenated Cell Elliptocytes Acanthocytes (Spur) Rouleaux Hemoglobin C Crystals Schistocytes Malaria parasites Santosh Bodies Hem Pathologist Commnt PT (12.2-14.9) Sec. INR (0.87-1.13) APTT (24.2-36.6) Sec. Sodium (137-145) mmol/L Potassium (3.6-5.0) mmol/L Chloride (98-107) mmol/L Carbon Dioxide (22-30) mmol/L Anion Gap mmol/L BUN (7-17) mg/dL Creatinine (0.7-1.2) mg/dL Estimated GFR ml/min BUN/Creatinine Ratio % Glucose (65-100) mg/dL POC Glucose (70-105) Lactic Acid 6.50 H* (0.7-2.0) mmol/L Calcium (8.4-10.2) mg/dL Magnesium (1.7-2.3) mg/dL Total Bilirubin (0.1-1.2) mg/dL AST (5-40) units/L ALT (7-56) units/L Alkaline Phosphatase (35-129) units/L Ammonia (25-60) umol/L Total Creatine Kinase (30-135) units/L Total Protein (6.3-8.2) g/dL Albumin (3.9-5) g/dL Albumin/Globulin Ratio % TSH (0.270-4.200) mlU/mL HCG, Quant (0-4) mIU/mL Urine Color (Yellow) Urine Turbidity (Clear) Urine pH (5.0-7.0) Ur Specific [place] (1.003-1.030) Urine Protein (Negative) mg/dL Urine Glucose (UA) (Negative) mg/dL Urine Ketones (Negative) mg/dL Urine Blood (Negative) Urine Nitrite (Negative) Urine Bilirubin (Negative) Urine Urobilinogen (<2.0) mg/dL Ur Leukocyte Esterase (Negative) Urine WBC (Auto) (0.0-6.0) /HPF Urine RBC (Auto) (0.0-6.0) /HPF Urine Mucus /HPF Salicylates (2.8-20.0) mg/dL Acetaminophen < 5.0 L (10.0-30.0) ug/mL Plasma/Serum Alcohol (0-0.07) % Blood Type O POSITIVE Antibody Screen Negative 01/18/19 01/18/19 Range/Units 08:05 09:51 WBC (4.5-11.0) K/mm3 RBC (3.65-5.03) M/mm3 Hgb (10.1-14.3) gm/dl Hct (30.3-42.9) % MCV (79-97) fl MCH (28-32) pg MCHC (30-34) % RDW (13.2-15.2) % Plt Count (140-440) K/mm3 Add Manual Diff Total Counted Seg Neuts % (Manual) (40.0-70.0) % Band Neutrophils % % Lymphocytes % (Manual) (13.4-35.0) % Reactive Lymphs % (Man) % Monocytes % (Manual) (0.0-7.3) % Eosinophils % (Manual) (0.0-4.3) % Basophils % (Manual) (0.0-1.8) % Metamyelocytes % % Myelocytes % % Promyelocytes % % Blast Cells % % Nucleated RBC % Seg Neutrophils # Man (1.8-7.7) K/mm3 Band Neutrophils # K/mm3 Lymphocytes # (Manual) (1.2-5.4) K/mm3 Abs React Lymphs (Man) K/mm3 Monocytes # (Manual) (0.0-0.8) K/mm3 Eosinophils # (Manual) (0.0-0.4) K/mm3 Basophils # (Manual) (0.0-0.1) K/mm3 Metamyelocytes # K/mm3 Myelocytes # K/mm3 Promyelocytes # K/mm3 Blast Cells # K/mm3 WBC Morphology Hypersegmented Neuts Hyposegmented Neuts Hypogranular Neuts Smudge Cells Toxic Granulation Toxic Vacuolation Dohle Bodies Pelger-Huet Anomaly Lesvia Rods Platelet Estimate Clumped Platelets Plt Clumps, EDTA Large Platelets Giant Platelets Platelet Satelliting Plt Morphology Comment RBC Morphology Dimorphic RBCs Polychromasia Hypochromasia Poikilocytosis Anisocytosis Microcytosis Macrocytosis Spherocytes Pappenheimer Bodies Sickle Cells Target Cells Tear Drop Cells Ovalocytes Helmet Cells Wei-Moca Bodies [place] Rings Gerald Cells Bite Cells Crenated Cell Elliptocytes Acanthocytes (Spur) Rouleaux Hemoglobin C Crystals Schistocytes Malaria parasites Santosh Bodies Hem Pathologist Commnt PT (12.2-14.9) Sec. INR (0.87-1.13) APTT (24.2-36.6) Sec. Sodium (137-145) mmol/L Potassium (3.6-5.0) mmol/L Chloride (98-107) mmol/L Carbon Dioxide (22-30) mmol/L Anion Gap mmol/L BUN (7-17) mg/dL Creatinine (0.7-1.2) mg/dL Estimated GFR ml/min BUN/Creatinine Ratio % Glucose (65-100) mg/dL POC Glucose 357 H (70-105) Lactic Acid 2.20 H* (0.7-2.0) mmol/L Calcium (8.4-10.2) mg/dL Magnesium (1.7-2.3) mg/dL Total Bilirubin (0.1-1.2) mg/dL AST (5-40) units/L ALT (7-56) units/L Alkaline Phosphatase (35-129) units/L Ammonia (25-60) umol/L Total Creatine Kinase (30-135) units/L Total Protein (6.3-8.2) g/dL Albumin (3.9-5) g/dL Albumin/Globulin Ratio % TSH (0.270-4.200) mlU/mL HCG, Quant (0-4) mIU/mL Urine Color (Yellow) Urine Turbidity (Clear) Urine pH (5.0-7.0) Ur Specific [place] (1.003-1.030) Urine Protein (Negative) mg/dL Urine Glucose (UA) (Negative) mg/dL Urine Ketones (Negative) mg/dL Urine Blood (Negative) Urine Nitrite (Negative) Urine Bilirubin (Negative) Urine Urobilinogen (<2.0) mg/dL Ur Leukocyte Esterase (Negative) Urine WBC (Auto) (0.0-6.0) /HPF Urine RBC (Auto) (0.0-6.0) /HPF Urine Mucus /HPF Salicylates (2.8-20.0) mg/dL Acetaminophen (10.0-30.0) ug/mL Plasma/Serum Alcohol (0-0.07) % Blood Type Antibody Screen - EKG Data -: EKG Interpreted by Ia EKG shows normal: sinus rhythm, axis (qrs -9), QRS complexes (qrs 76), ST-T waves (no stemi) Rate: tachycardia (112) - Radiology Data Radiology results: report reviewed CT ABDOMEN AND PELVIS WITHOUT CONTRAST INDICATION: MAIN: ALTERED MENTAL STATUS. s/p liver biopsy vs resection. TECHNIQUE: Axial CT images were obtained through the abdomen and pelvis without IV contrast. All CT scans at this location are performed using CT dose reduction for [place] by means of automated exposure control. COMPARISON: CT abdomen and pelvis 12/16/2018 FINDINGS: LOWER CHEST: No significant abnormality. LIVER: The right hepatic lobe has been resected since prior study. GALLBLADDER: Has been resected since prior study. BILE DUCTS: No significant abnormality. PANCREAS: Chronic calcific pancreatitis and moderate pancreatic atrophy, unchanged. SPLEEN: Remains mildly enlarged ADRENALS: No significant abnormality. RIGHT KIDNEY and URETER: No significant abnormality. LEFT KIDNEY and URETER: No significant abnormality. STOMACH and SMALL BOWEL: Stomach is distended with moderate amount of food particles/debris. Small bowel is mildly distended with moderate amount of small bowel feces characteristic for small bowel slow transit time. No transition point to suggest bowel obstruction. COLON: Moderate amount of stool characteristic for constipation. APPENDIX: Normal. PERITONEUM: No free fluid. No free air. No fluid collection. LYMPH NODES: No significant adenopathy. AORTA and ARTERIES: No significant abnormality. IVC and VEINS: No significant abnormality. URINARY BLADDER: Several tiny bubbles of nondependent gas within urinary bladder likely secondary to recent instrumentation. REPRODUCTIVE ORGANS: Intrauterine device in expected position ADDITIONAL FINDINGS: Soft tissue gas within the right vastus lateralis muscle with 1.5 cm fluid collection characteristic for abscess. 3 cm loculated fluid collection containing gas bubbles within the left rectus femoris muscle characteristic for intramuscular abscess/myositis. SKELETAL SYSTEM: No significant abnormality. IMPRESSION: 1. Focal intramuscular abscesses containing bubbles of gas within left rectus femoris muscle and adjacent fascial planes and right vastus lateralis muscle. Recommend bilateral lower extremity CT preferably with contrast for further evaluation. 2. Interval right hepatectomy with small amount of fluid in the right subdiaphragmatic space. No drainable fluid collection/residual intra-abdominal abscess. 3 constipation with large amount of debris/food particles within mildly distended stomach and small bowel characteristic for slow small bowel transit. 4. Chronic calcific pancreatitis and mild splenomegaly, unchanged. CHEST 1 VIEW 01/18/2019 5:52 AM INDICATION / CLINICAL INFORMATION: Altered Mental Status. COMPARISON: Chest x-ray 12/16/2018 FINDINGS: SUPPORT DEVICES: None. HEART / MEDIASTINUM: No significant abnormality. LUNGS / PLEURA: No significant pulmonary or pleural abnormality. No pneumothorax. ADDITIONAL FINDINGS: Old healed left midclavicular fracture deformity, unchanged. IMPRESSION: 1. No acute findings. CT HEAD WITHOUT CONTRAST INDICATION / CLINICAL INFORMATION: Altered Mental Status. TECHNIQUE: All CT scans at this location are performed using CT dose reduction for ALARA by means of automated exposure control. COMPARISON: Head CT 11/18/2018 FINDINGS: HEMORRHAGE: None. EXTRA-AXIAL SPACES: Normal in size and morphology for the patient's age. VENTRICULAR SYSTEM: Normal in size and morphology for the patient's age. CEREBRAL PARENCHYMA: Dense bilateral idiopathic basal ganglia calcifications, unchanged. No significant abnormality. No acute territorial infarct. MIDLINE SHIFT OR HERNIATION: None. CEREBELLUM / BRAINSTEM: No significant abnormality. ORBITS: Normal as visualized. SOFT TISSUES of HEAD: No significant abnormality. CALVARIUM: No significant abnormality. PARANASAL SINUSES / MASTOID AIR CELLS: Normal as visualized. ADDITIONAL FINDINGS: None. IMPRESSION: 1. No acute intracranial abnormality. 2. Bilateral idiopathic basal ganglia calcifications, unchanged. CTA BILATERAL LOWER EXTREMITIES HISTORY: Gas in upper left leg on pelvis CT. Pain, abscess. COMPARISON: CT abdomen pelvis without contrast 01/18/2019 TECHNIQUE: Routine postcontrast CT angiography of the lower extremities performed. Multiplanar/MIP/3D reformats were post-processed. All CT scans at this location are performed using CT dose reduction for ALARA by means of automated exposure control. CONTRAST: 100 ml of Omnipaque 350 FINDINGS: RIGHT LOWER EXTREMITY: Common Femoral Artery: No significant abnormality. Superficial Femoral Artery: No significant abnormality. Profunda Femoral Artery: No significant abnormality. Popliteal Artery: No significant abnormality. Anterior Tibial Artery: Cannot be evaluated secondary to streak artifact from internal fixation of the right tibia. Tibioperoneal Trunk: No significant abnormality. Posterior Tibial Artery: No significant abnormality. Peroneal Artery: No significant abnormality. Ankle runoff: Three vessel. LEFT LOWER EXTREMITY: Common Femoral Artery: No significant abnormality. Superficial Femoral Artery: No significant abnormality. Profunda Femoral Artery: No significant abnormality. Popliteal Artery: No significant abnormality. Anterior Tibial Artery: No significant abnormality. Tibioperoneal Trunk: No significant abnormality. Posterior Tibial Artery: No significant abnormality. Peroneal Artery: No significant abnormality. Ankle runoff: Three vessel. NONTARGET STRUCTURES: Musculoskeletal:Ill-defined edema and a small amount of soft tissue gas is identified in the anterior left quadriceps muscle. This area measures approximately 2.2 x 2.3 cm in axial plane and 12 cm in craniocaudal plane. There is no defined or mature abscess. There is a similar appearing area of muscular edema and trace gas in the lateral right quadriceps muscle measuring 1.7 x 2.2 x 8.1 cm. These areas have the appearance of focal myositis. No large amount of gas is identified to suggest fasciitis. IMPRESSION: Unremarkable CTA of the bilateral lower extremities. Please note there is poor visualization of the right anterior tibial artery due to surgical hardware. Focal areas of myositis are identified in both quadriceps muscles as described above. There is ill- defined muscular edema and trace gas but no defined abscess at this time. - Medical Decision Making Acute alteration in mental status. Positive elevated ammonia suggestive of hepatic encephalopathy. CT had a chest x-ray unremarkable for acute findings. CT abdomen and pelvis reviewed and shows air bubbles in the lateral rectus muscles of the thigh bilaterally. Patient has elevated lactic acid concerning for severe sepsis with a normal blood pressure with a map greater than 65. Patient treated with vancomycin, Flagyl, and Zosyn. Patient accepted for transfer to [facility]. - Differential Diagnosis encephalopathy, sepsis, hypoglycemia, elevated ammonia, Critical Care Time: Yes Critical care time in (mins) excluding proc time.: 35 Critical care attestation.: If time is entered above; I have spent that time in minutes in the direct care of this critically ill patient, excluding procedure time. ED Disposition Clinical Impression: Altered mental state, Lactic acid acidosis, Hepatic encephalopathy, Uncontrolled diabetes mellitus, Status post surgery, Muscle abscess, Myositis Disposition: [id number] ANOTHER TYPE HLTHCARE Is pt being admited?: No Condition: Stable Time of Disposition: 08:55 (to be transfered to [facility])
[2019-01-18] MEDS ORDERED: ZOSYN/NS 4.5GM/100ML 4.5 GM/100 ML VIAL IV ONE (07:25)
[2019-01-18 07:52] LABS: Basophils % (Manual) 0 % (0.0-1.8); Total Cells Counted 100
[2019-01-18 07:54] LABS: Ovalocytes Few; Platelet Estimate Consistent w Auto
[2019-01-18] MEDS ORDERED: VANCOMYCIN PHARMACY TO DOSE IV SCH (08:00)
[2019-01-18] MEDS ORDERED: MAXIPIME/NS 2 GM/100 ML 2 GM/100 ML BAG IV SCH (08:00)
[2019-01-18] MEDS ORDERED: VANCOMYCIN 750 MG in NACL 0.9% 500 ML 500 ML IV ONE (08:30)
[2019-01-18] MEDS ORDERED: FLAGYL 500 MG/100 ML 500 MG/100 ML BAG IV SCH (08:30)
[2019-01-18] MEDS ORDERED: VANCOMYCIN 750 MG in NACL 0.9% 250ML 250 ML IV ONE (08:30)
--- NOTE | 2019-01-18 09:38 | Cat Scan Report ---
CTA BILATERAL LOWER EXTREMITIES HISTORY: Gas in upper left leg on pelvis CT. Pain, abscess. COMPARISON: CT abdomen pelvis without contrast 01/18/2019 TECHNIQUE: Routine postcontrast CT angiography of the lower extremities performed. Multiplanar/MIP/3D reformats were post-processed. All CT scans at this location are performed using CT dose reduction f or ALARA by means of automated exposure control. CONTRAST: 100 ml of Omnipaque 350 FINDINGS: RIGHT LOWER EXTREMITY: Common Femoral Artery: No significant abnormality. Superficial Femoral Artery: No significant abnormality. Profunda Femoral Artery: No significant abnormality. Popliteal Artery: No significant abnormality. Anterior Tibial Artery: Cannot be evaluated secondary to streak artifact from internal fixation of th e right tibia. Tibioperoneal Trunk: No significant abnormality. Posterior Tibial Artery: No significant abnormality. Peroneal Artery: No significant abnormality. Ankle runoff: Three vessel. LEFT LOWER EXTREMITY: Common Femoral Artery: No significant abnormality. Superficial Femoral Artery: No significant abnormality. Profunda Femoral Artery: No significant abnormality. Popliteal Artery: No significant abnormality. Anterior Tibial Artery: No significant abnormality. Tibioperoneal Trunk: No significant abnormality. Posterior Tibial Artery: No significant abnormality. Peroneal Artery: No significant abnormality. Ankle runoff: Three vessel. NONTARGET STRUCTURES: Musculoskeletal:Ill-defined edema and a small amount of soft tissue gas is identified in the anterio r left quadriceps muscle. This area measures approximately 2.2 x 2.3 cm in axial plane and 12 cm in c raniocaudal plane. There is no defined or mature abscess. There is a similar appearing area of muscul ar edema and trace gas in the lateral right quadriceps muscle measuring 1.7 x 2.2 x 8.1 cm. These are as have the appearance of focal myositis. No large amount of gas is identified to suggest fasciitis. IMPRESSION: Unremarkable CTA of the bilateral lower extremities. Please note there is poor visualization of the r ight anterior tibial artery due to surgical hardware. Focal areas of myositis are identified in both quadriceps muscles as described above. There is ill-de fined muscular edema and trace gas but no defined abscess at this time. Signer Name: Jhonny Dowd Jr, MD Signed: 01/18/2019 9:34 AM Workstation Name: [id number]
[2019-01-18 10:11] VITALS: BP 138/89
== END 2019-01-18 11:01 | disposition other institution (70) ==
LOC: ED 05:10
DX: R41.82 Altered mental status, unspecified (principal); E87.2 Acidosis; K72.90 Hepatic failure, unspecified without coma; M60.9 Myositis, unspecified; E11.9 Type 2 diabetes mellitus without complications; Z98.890 Other specified postprocedural states; Z79.4 Long term (current) use of insulin
CPT/HCPCS: 36415; 70450; 71045; 74176; 75635; 80053; 81001; 82140; 82550; 82962; 83735; 84443; 84702; 85007; 85025; 85610; 85730; 86850; 86900; 86901; 87040; 87086; 96361; 96365; 96366; 96368; 96372; 96375; 99291; J1630; J2060; J2543; J3370; J7030; J7050; Q9967; 80320; G0480; J1815; J7040